=== PATIENT | male | born 1940 ===

== ENCOUNTER 2017-01-01 09:57 | Inpatient (IN) | payer MEDICARE, OTHER ==
[2017-01-01] MEDS ORDERED: Iohexol 240 (50 ml) PO ONE ×2 (11:14→11:34)
[2017-01-01 11:56] LABS: BASO % 0.2 % (0.0-2.0); HEMATOCRIT 34.1 % (35.0-51.0); LYMPH % 8.8 % (20.0-40.0); MEAN CELL VOLUME 85.4 fl (80.0-94.0); MEAN CORPUSCULAR HEMOGLOBIN 28.1 pg (27.0-31.0); MEAN CORPUSCULAR HGB CONC 32.9 g/dL (33.0-37.0); MEAN PLATELET VOLUME 10.9 fl (7.2-11.7); MONO # 0.4 K/uL (0.0-0.8); MONO % 3.6 % (0.0-10.0); NEUT # 10.1 K/uL (1.8-7.0); NEUT % 87.4 % (50.0-75.0); NRBC % 0.1 % (0.0-0.0); PLATELET COUNT 162 K/uL (130-400); WHITE BLOOD COUNT 11.6 K/uL (4.8-10.8)
[2017-01-01] MEDS ORDERED: Iohexol 240 (50 ml) ONE (12:01)
[2017-01-01 12:10] LABS: CHLORIDE 101 mmol/L (98-107)
[2017-01-01 12:11] LABS: POTASSIUM 3.9 MMOL/L (3.6-5.0); SODIUM 138 mmol/l (132-148)
[2017-01-01 12:13] LABS: ALB/GLOB RATIO 1.2 (1.0-2.1); ALKALINE PHOSPHATASE 48 U/L (38-126); ALT/SGPT 16 U/L (21-72); AST/SGOT 22 U/L (17-59); BILIRUBIN,TOTAL 0.9 mg/dl (0.2-1.3); BLOOD UREA NITROGEN 27 mg/dl (9-20); CARBON DIOXIDE 24 mmol/L (22-30); GFR AFRICAN-AMERICAN > 60
[2017-01-01 12:14] LABS: CALCIUM 9.3 mg/dL (8.4-10.2); GLUCOSE,RANDOM 141 mg/dL (75-110)
[2017-01-01 12:28] LABS: NEUTROPHIL 79 % (42-75); TOTAL CELLS COUNTED 100
[2017-01-01 12:30] LABS: LARGE PLATELETS PRESENT
[2017-01-01] MEDS ORDERED: Iohexol 300 100 ML IJ ONE (15:05)
[2017-01-01] MEDS ORDERED: Sodium Chloride 0.9% 50 ML IV ONE (15:05)
--- NOTE | 2017-01-01 15:11 | ED PDOC ---
HPI: Abdomen Time Seen by Provider: 01/01/17 10:20 Chief Complaint (Nursing): Abdominal Pain Chief Complaint (Provider): Abdominal Pain History Per: Patient History/Exam Limitations: no limitations Onset/Duration Of Symptoms: Days (since yesterday) Outside of [place] travel?: No Current Symptoms Are (Timing): Still Present Severity: Moderate Location Of Pain/Discomfort: LUQ, LLQ Quality Of Discomfort: Other (w/radiation to back, right underneath scar of recent colon anastomosis) Additional Complaint(s): Milind Salinas is a 76 year old male, with a past medical history inclusive of HTN, hyperlipidemia and type II diabetes, who presents to the ED on 01/01/17 for the evaluation of a moderate amount of left-sided abdominal pain that he has experienced since yesterday. Pain, primarily localized underneath the scar of a recent colon anastomosis (September 2016, performed for removal of mass), is further described as radiating into his back and is similar to a painful episode that he experienced 1 month ago for which he had been evaluated in the ED and was later admitted secondary to a bowel perforation at the anastomosis site. Patient reports having undergone an outpatient CT yesterday, but is unsure as to where it was done or of the results of the study. PMD: Shashi Thurston Past Medical History Reviewed: Historical Data, Nursing Documentation, Vital Signs Vital Signs: Last Vital Signs Temp 99.8 F H 01/01/17 18:10 Pulse 79 01/01/17 18:10 Resp 18 01/01/17 18:10 BP 143/59 L 01/01/17 18:10 Pulse Ox 100 01/01/17 18:08 - Medical History PMH: Asthma, Diabetes (type II), HTN, Hyperlipidemia, Pneumonia Denies: HIV, Chronic Kidney Disease - Surgical History Other surgeries: colon anastomosis (Sep 2016, for removal of mass), repair of perforated bowel - Family History Family History: States: Unknown Family Hx - Social History Current smoker - smoking cessation education provided: No Alcohol: None Drugs: Denies - Immunization History Hx Tetanus Toxoid Vaccination: No Hx Influenza Vaccination: No Hx Pneumococcal Vaccination: No - Home Medications Home Medications: Ambulatory Orders Medication Instructions Recorded Aspirin [Ecotrin] 81 mg PO DAILY 11/27/16 Insulin Glargine, Recombina 40 unit SC BID 11/27/16 [Lantus] Losartan/Hydrochlorothiazide 1 tab PO DAILY 11/27/16 [Losartan-Hctz 50-12.5 mg Tab] MetFORMIN [glucoPHAGE] 1,000 mg PO BID 11/27/16 Metoprolol Tartrate [Lopressor] 100 mg PO DAILY 11/27/16 amLODIPine [Norvasc] 5 mg PO DAILY 11/27/16 hydrALAZINE [Apresoline] 25 mg PO Q8H 11/27/16 GlipiZIDE [Glucotrol] 10 mg PO BID 01/01/17 - Allergies Allergies/Adverse Reactions: Allergies Allergy/AdvReac Type Severity Reaction Status Date / Time No Known Allergies Allergy Verified 01/01/17 10:12 Review of Systems ROS Statement: Except As Marked, All Systems Reviewed And Found Negative Gastrointestinal: Positive for: Abdominal Pain (left-sided w/radiation into back , primarily localized under scar from recent colon anastomosis) Physical Exam - Reviewed Nursing Documentation Reviewed: Yes Vital Signs Reviewed: Yes - Physical Exam Appears: Positive for: Non-toxic, No Acute Distress Head Exam: Positive for: ATRAUMATIC, NORMOCEPHALIC Skin: Positive for: Normal Color, Warm, Dry Cardiovascular/Chest: Positive for: Regular Rate, Rhythm. Negative for: Murmur Respiratory: Positive for: Normal Breath Sounds. Negative for: Respiratory Distress Gastrointestinal/Abdominal: Positive for: Soft, Tenderness (diffuse), Guarding ( left-sided), Rebound (left-sided) Back: Positive for: Normal Inspection. Negative for: Vertebral Tenderness Neurologic/Psych: Positive for: Alert, Oriented - Laboratory Results Result Diagrams: 01/01/17 11:49 01/01/17 11:49 - ECG O2 Sat by Pulse Oximetry: 100 (RA) Pulse Ox Interpretation: Normal - CT Scan/US CT A/P w/PO and IV contrast Other Rad Studies (CT/US): Read By Radiologist, Radiology Report Reviewed Other Rad Interpretation: see MDM Medical Decision Making Medical Decision Makin:20 Initial Impression: abdominal pain Discussed case with Dr. Thurston, who has requested that a repeat CT A/P be done. Initial Plan: * CT A/P w/PO and IV contrast * Labs * Lactic Acid, Plasma * Troponin I * Morphine 2mg IVP * Reevaluation 15:50 CT A/P report reviewed: FINDINGS: LOWER THORAX: There is worsening bibasilar subsegmental atelectasis. There is also confluent airspace disease in the lateral segment of the left lung base. LIVER: The liver is normal in size and there is diffuse low-attenuation. GALLBLADDER AND BILE DUCTS: There are no calcified gallstones. There is layering sludge within the gallbladder. PANCREAS: The pancreas is normal in size and there is homogeneous enhancement without focal mass. SPLEEN: The spleen is normal. ADRENALS: Both adrenal glands are normal in size without discrete nodule. KIDNEYS AND URETERS: Both kidneys are normal in size and there is homogeneous enhancement without focal mass or hydronephrosis. VASCULATURE: There is normal appearance of the vasculature. There is no abdominal aortic aneurysm. BOWEL: There is mild dilatation of the small bowel loops. Since the prior examination, there is interval development of PE multilocular fluid collection in the right lower quadrant lateral to the cecum, the anterior component measures 4.0 x 1.3 cm and contains locules of air. A posterior component adjusting to the lateral wall of the cecum measures 2.5 x 2.2 cm. There is significant stranding of the lower quadrant Ms anteriorly and reactive thickening of the terminal ileum with segmental narrowing. There is also interval development of fluid intramuscular fluid in the right lateral wall muscles. The previously seen locular fluid collection in the region of the anastomotic suture has nearly completely resolved with improving inflammatory changes at the anastomotic site. There is sigmoid diverticulosis without CT evidence for acute diverticulitis. APPENDIX: Normal appendix. PERITONEUM: Open No free fluid. No free air. LYMPH NODES: No enlarged lymph nodes. BLADDER: Normal in appearance. REPRODUCTIVE: Unremarkable. BONES: No acute fracture. OTHER FINDINGS: None. IMPRESSION: 1. Findings are concerning for interval development of multilocular abscess in the right lower quadrant lateral to the cecum. The anterior component abuts the anterior lateral abdominal wall. Significant inflammatory changes in the right lower quadrant mesentery. Also noted is intramuscular fluid in the elyssa lateral wall muscles, which may represent reactive edema however the sterility of this fluid cannot be determined on the basis of imaging. Clinical and laboratory correlation is advised. 2. Reactive segmental narrowing and thickening of the terminal ileum in the right lower quadrant and mild dilatation of proximal small bowel which could be related to ileus. No definite evidence of bowel obstruction. 3. Interval near complete resolution of previously seen fluid collection with locking is of air at the anastomotic site and interval improvement in inflammatory changes in the region of the anastomosis. Discussed admission, ID consult and surgery consult with Dr. Thurston. Scribe Attestation: Documented by Yvonne Woodward, acting as a scribe for Abbey Oakley PA-C. Provider Scribe Attestation: All medical record entries made by the Scribe were at my direction and personally dictated by me. I have reviewed the chart and agree that the record accurately reflects my personal performance of the history, physical exam, medical decision making, and the department course for this patient. I have also personally directed, reviewed, and agree with the discharge instructions and disposition. Disposition - Clinical Impression Clinical Impression: Abdominal abscess - Patient ED Disposition Is Patient to be Admitted: Yes - Disposition Disposition Time: 18:20 Condition: GOOD - Pt Status Changed To: Hospital Disposition Of: Inpatient - Admit Certification Admit to Inpatient:: After my assessment, the patient will require hospitalization for at least two midnights. This is because of the severity of symptoms shown, intensity of services needed, and/or the medical risk in this patient being treated as an outpatient. - POA Present On Arrival: None
--- NOTE | 2017-01-01 15:51 | CT ---
PROCEDURE: CT Abdomen and Pelvis with contrast HISTORY: Abdominal pain, hx recent perforation COMPARISON: None. TECHNIQUE: CT scan of the abdomen and pelvis was performed after intravenous) administration of contrast. Oral contrast was administered. Coronal and sagittal reformatted images were obtained. Contrast dose: 95 mL Omnipaque 300 Radiation dose: Total exam DLP = 1014.75 mGy-cm. This CT exam was performed using one or more of the following dose reduction techniques: Automated exposure control, adjustment of the mA and/or kV according to patient size, and/or use of iterative reconstruction technique. FINDINGS: LOWER THORAX: There is worsening bibasilar subsegmental atelectasis. There is also confluent airspace disease in the lateral segment of the left lung base. LIVER: The liver is normal in size and there is diffuse low-attenuation. GALLBLADDER AND BILE DUCTS: There are no calcified gallstones. There is layering sludge within the gallbladder. PANCREAS: The pancreas is normal in size and there is homogeneous enhancement without focal mass. SPLEEN: The spleen is normal. ADRENALS: Both adrenal glands are normal in size without discrete nodule. KIDNEYS AND URETERS: Both kidneys are normal in size and there is homogeneous enhancement without focal mass or hydronephrosis. VASCULATURE: There is normal appearance of the vasculature. There is no abdominal aortic aneurysm. BOWEL: There is mild dilatation of the small bowel loops. Since the prior examination, there is interval development of PE multilocular fluid collection in the right lower quadrant lateral to the cecum, the anterior component measures 4.0 x 1.3 cm and contains locules of air. A posterior component adjusting to the lateral wall of the cecum measures 2.5 x 2.2 cm. There is significant stranding of the lower quadrant Ms anteriorly and reactive thickening of the terminal ileum with segmental narrowing. There is also interval development of fluid intramuscular fluid in the right lateral wall muscles. The previously seen locular fluid collection in the region of the anastomotic suture has nearly completely resolved with improving inflammatory changes at the anastomotic site. There is sigmoid diverticulosis without CT evidence for acute diverticulitis. APPENDIX: Normal appendix. PERITONEUM: Open No free fluid. No free air. LYMPH NODES: No enlarged lymph nodes. BLADDER: Normal in appearance. REPRODUCTIVE: Unremarkable. BONES: No acute fracture. OTHER FINDINGS: None. IMPRESSION: 1. Findings are concerning for interval development of multilocular abscess in the right lower quadrant lateral to the cecum. The anterior component abuts the anterior lateral abdominal wall. Significant inflammatory changes in the right lower quadrant mesentery. Also noted is intramuscular fluid in the elyssa lateral wall muscles, which may represent reactive edema however the sterility of this fluid cannot be determined on the basis of imaging. Clinical and laboratory correlation is advised. 2. Reactive segmental narrowing and thickening of the terminal ileum in the right lower quadrant and mild dilatation of proximal small bowel which could be related to ileus. No definite evidence of bowel obstruction. 3. Interval near complete resolution of previously seen fluid collection with locking is of air at the anastomotic site and interval improvement in inflammatory changes in the region of the anastomosis.
[2017-01-01] MEDS ORDERED: metroNIDAZOLE 500mg/100ml NS 100 ML IVPB ONE (16:28)
[2017-01-01] MEDS ORDERED: Piperacillin/Tazobact 3.375 GM in Sodium Chloride 0.9% 100 ML IVPB ONE (16:28)
[2017-01-01] MEDS ORDERED: Piperacillin/Tazobact 3.375 gm Inj IVPB ONE (17:03)
--- NOTE | 2017-01-01 20:35 | CP.PCM.CON ---
History of Present Illness - History of Present Illness History of Present Illness: Surgery Consult: Dr. Rocha Pt is a 76M well known to our service from previous admissions, who presented to [facility] with complaints of RLQ abdominal pain that started yesterday. Pt states he had a similar episode last month and was admitted to the hospital for a week. According to the pt, pain started yesterday morning and progressively worsened throughout the day. Pt states pain is dull and located in the RLQ with some radiation to the flank. He denies any other associated symptoms such as N/V , F/C, or diarrhea. He states his last BM was yesterday afternoon and it was normal. In the ER, pt had a CT abdomen pelvis which shows imultilocular abscess in the RLQ lateral to the cecum. Anterior component measures 1.3 x 4.0cm and the posterior component measures 2.5 x 2.2cm. Currently, pt is resting comfortably in bed. He states his pain is slightly better compared to arrival. Denies any other complaints at this time. PMHx: DM, HTN, HLD, GI bleed PSHx: Lap hand assisted ileocecectomy with primary anastomosis (10/09/16), I&D of surgical wound infection (10/19/16) SocialHx: denies smoking, EtOH/drugs NKDA Review of Systems - Review of Systems All systems: reviewed and no additional remarkable complaints except (as per HPI ) Past Patient History - Infectious Disease Hx of Infectious Diseases: None - Past Medical History & Family History Past Medical History?: Yes - Past Social History Alcohol: None Drugs: Denies - CARDIAC Hx Hypertension: Yes - PULMONARY Hx Asthma: Yes Hx Pneumonia: Yes - NEUROLOGICAL Hx Neurological Disorder: No - HEENT Hx HEENT Problems: No - RENAL Hx Chronic Kidney Disease: No - ENDOCRINE/METABOLIC Hx Endocrine Disorders: Yes Hx Diabetes Mellitus Type 2: Yes - HEMATOLOGICAL/ONCOLOGICAL Hx Human Immunodeficiency Virus (HIV): No - INTEGUMENTARY Hx Dermatological Problems: No - MUSCULOSKELETAL/RHEUMATOLOGICAL Hx Musculoskeletal Disorders: No Hx Falls: No - GASTROINTESTINAL Hx Gastrointestinal Disorders: Yes Hx Bowel Surgery: Yes - GENITOURINARY/GYNECOLOGICAL Hx Genitourinary Disorders: No - PSYCHIATRIC Hx Psychophysiologic Disorder: No Hx Substance Use: No - SURGICAL HISTORY Hx Surgeries: Yes Other/Comment: Bowel Resection- 09/2016 - ANESTHESIA Hx Anesthesia: Yes Hx Anesthesia Reactions: No Hx Malignant Hyperthermia: No Meds Allergies/Adverse Reactions: Allergies Allergy/AdvReac Type Severity Reaction Status Date / Time No Known Allergies Allergy Verified 01/01/17 10:12 - Medications Medications: Current Medications Piperacillin Sod/Tazobactam (Sod 3.375 gm/ Sodium Chloride) 100 mls @ 100 mls/ hr IVPB Q6H [facility] Ketorolac Tromethamine (Toradol) 30 mg IVP Q6 PAZ Stop: 01/02/17 22:00 Ondansetron HCl (Zofran Inj) 4 mg IVP Q4 PRN PRN Reason: Nausea/Vomiting Physical Exam - Constitutional Appears: Well, No Acute Distress - Head Exam Head Exam: ATRAUMATIC, NORMOCEPHALIC - Eye Exam Eye Exam: Normal appearance - ENT Exam ENT Exam: Mucous Membranes Moist - Respiratory Exam Respiratory Exam: NORMAL BREATHING PATTERN - Cardiovascular Exam Cardiovascular Exam: RRR - GI/Abdominal Exam GI & Abdominal Exam: Guarding, Soft, Tenderness (generalized to light palpation ). absent: Distended - Rectal Exam Rectal Exam: Deferred - Extremities Exam Extremities exam: Negative for: tenderness - Neurological Exam Neurological exam: Alert, Oriented x3 - Skin Skin Exam: Dry, Intact, Warm Results - Vital Signs Recent Vital Signs: Last Vital Signs Temp 99.3 F 01/01/17 19:22 Pulse 75 01/01/17 19:22 Resp 20 01/01/17 19:22 BP 163/72 H 01/01/17 19:22 Pulse Ox 94 L 01/01/17 19:22 - Labs Result Diagrams: 01/01/17 11:49 01/01/17 11:49 - Imaging and Cardiology CT scan - abdomen Status: Image reviewed by me, Report reviewed by me Assessment & Plan - Assessment and Plan (Free Text) Assessment: 76M s/p lap hand assisted ileocecectomy with primary anastomosis in Sep 2016, who presents with recurrent intra-abdominal abscess Plan: - Keep NPO - IVF, IV ABX - Serial abdominal exams - AM labs - DVT/GI PPX - d/w Dr. Josefina German, PGY-2 Surgery
[2017-01-01] MEDS: Sodium Chloride 0.9% 1,000 ML IV SCH (21:30)
[2017-01-01] MEDS: Piperacillin/Tazobact 3.375 GM in Sodium Chloride 0.9% 100 ML IVPB SCH (21:31)
--- NOTE | 2017-01-01 21:52 | HP ---
This is a 76-years with multiple medical problems, was evaluated in the Emergency Room on the day for admission for 2 days' history of progressive right -sided abdominal pain. The patient had a laparotomy with excision of extramural mass at the ileocecal junction that was not malignant. The patient was readmitted for possible an anastomotic site perforations about 3 weeks ago, and was treated conservatively with IV antibiotics. The patient presented today, on the day of admission, with progressive pain, right upper and lower abdominal pains, at the right lower quadrant. The patient had a CAT scan of the abdomen and pelvis that showed possible abscess with interval improvement of the inflammatory changes at the site of anastomosis. The patient started on IV antibiotics, and surgical and ID consults are requested while the patient was in Emergency Room. The patient denied to have any fever or chills. Denied to have any nausea, vomiting, or diarrhea, and other review of systems is negative. ALLERGY: No known allergy. HOME MEDICATIONS: Include Lantus 50 units twice a day, amlodipine 5 mg daily, metoprolol 100 mg daily, metformin 1000 mg twice a day, losartan/ hydrochlorothiazide 50/12.5 once a day, glipizide 10 mg twice a day, aspirin 81 mg daily. SOCIAL HISTORY: No history of smoking, ETOH, or substance abuse. FAMILY HISTORY: Noncontributory. Blood pressure 163/72, temperature 99.3, respiratory rate 20, oxygen saturation 75. HENT: Pupils react to light. Normal-appearing mucosa of the conjunctivae, oropharyngeal, and nasal membrane mucosa. NECK: Supple. No JVD, no carotid bruit, no lymph node, no thyromegaly. CHEST AND LUNGS: Bilateral symmetrical expansion. Good air exchange. No rales , no rhonchi. CARDIOVASCULAR SYSTEM: PMI not localized. S1, S2. No additional sounds. ABDOMEN: Normoactive bowel sounds. Tenderness of the right upper and lower quadrant with some rebound tenderness, but no rigidity. EXTREMITIES: No cyanosis, no clubbing, no edema. CENTRAL NERVOUS SYSTEM: Alert, awake, oriented x 3, and no neurologic deficits could be appreciated. ASSESSMENT: 1. Possible intra-abdominal abscess. 2. Type 2 diabetes mellitus. 3. Hypertension. PLAN: Will keep patient n.p.o., continue IV antibiotics, serial abdominal exam , and follow up surgical and ID recommendations. Follow up surgical recommendation. [facility] S Bertrand VAZQUEZ cc: [phone] TT: 01/01/2017 21:52:22 [facility] # [id number] jn MTDD
[2017-01-02] MEDS: Piperacillin/Tazobact 3.375 GM in Sodium Chloride 0.9% 100 ML IVPB SCH ×2 (03:24→09:36)
[2017-01-02 07:20] LABS: HEMATOCRIT 27.7 % (35.0-51.0); MEAN CELL VOLUME 86.2 fl (80.0-94.0); MEAN CORPUSCULAR HEMOGLOBIN 28.5 pg (27.0-31.0); WHITE BLOOD COUNT 8.6 K/uL (4.8-10.8)
[2017-01-02 07:28] LABS: CALCIUM 8.4 mg/dL (8.4-10.2); POTASSIUM 3.7 MMOL/L (3.6-5.0)
--- NOTE | 2017-01-02 07:46 | CP.PCM.PN ---
Subjective - Date & Time of Evaluation Date of Evaluation: 01/02/17 Time of Evaluation: 06:45 - Subjective Subjective: General Surgery Pt S&E, NAEO. Afebrile. Pain has improved slightly in RLQ and R flank. No other C/O. Objective - Vital Signs/Intake and Output Vital Signs (last 24 hours): Temp Pulse Resp BP Pulse Ox 98.6 F 64 18 143/66 96 01/02/17 05:04 01/02/17 05:04 01/02/17 05:04 01/02/17 05:04 01/02/17 05:04 Intake and Output: 01/02/17 01/02/17 06:59 18:59 Intake Total 450 Balance 450 - Medications Medications: Current Medications Amlodipine Besylate (Norvasc) 5 mg PO DAILY [facility] Hydralazine HCl (Apresoline) 25 mg IV Q8 [facility] Piperacillin Sod/Tazobactam (Sod 3.375 gm/ Sodium Chloride) 100 mls @ 100 mls/ hr IVPB Q6H [facility] Last Admin: 01/02/17 03:24 Dose: 100 mls/hr Sodium Chloride (Sodium Chloride 0.9%) 1,000 mls @ 100 mls/hr IV .Q10H [facility] Stop: 01/02/17 21:01 Last Admin: 01/01/17 21:30 Dose: 100 mls/hr Potassium Chloride/Dextrose/Sod Cl (Potassium Chl 20 Meq In D5-Ns) 1,000 mls @ 100 mls/hr IV .Q10H [facility] Stop: 01/03/17 07:01 Ketorolac Tromethamine (Toradol) 30 mg IVP Q6 [facility] Stop: 01/02/17 22:00 Last Admin: 01/02/17 03:23 Dose: 30 mg Metoprolol Tartrate (Lopressor) 100 mg PO DAILY [facility] Ondansetron HCl (Zofran Inj) 4 mg IVP Q4 PRN PRN Reason: Nausea/Vomiting - Labs Labs: 01/02/17 06:20 01/02/17 06:20 - Constitutional Appears: Non-toxic, No Acute Distress - Head Exam Head Exam: ATRAUMATIC, NORMOCEPHALIC - Respiratory Exam Respiratory Exam: NORMAL BREATHING PATTERN. absent: Respiratory Distress - GI/Abdominal Exam GI & Abdominal Exam: Firm (in RLQ and R flank), Guarding (mild in RLQ and R flank), Soft, Tenderness (RLQ and R flank). absent: Distended, Rigid, Rebound - Neurological Exam Neurological Exam: Alert, Awake, Oriented x3 - Skin Skin Exam: Dry, Warm Assessment and Plan - Assessment and Plan (Free Text) Assessment: 76M s/p lap hand assisted ileocecectomy with primary anastomosis in Sep 2016, who presents with recurrent intra-abdominal abscess Plan: - NPO - IV ABX D/W Dr. Josefina Rodriguez PGY3
[2017-01-02] MEDS: Potassium Chl 20 mEq in D5-NS 1,000 ML IV SCH ×3 (09:30→16:57)
[2017-01-02] MEDS: Insulin NPH Human 100 Units/ml Inj SC SCH ×3 (09:32→16:52)
[2017-01-02] MEDS: Sodium Chloride 0.9% 1,000 ML IV SCH ×2 (09:34→16:57)
--- NOTE | 2017-01-02 11:14 | CP.PCM.CON ---
History of Present Illness - History of Present Illness History of Present Illness: Infectious Disease Consultation Note- asked to see this patient at the request of for intra-abd abscess. HPI- History obtained mostly from the medical chart and the patient's son who is at bedside. Pt. is a 76 year old male with pmh of DM Ii, HTN, Lap hand assisted ileocecectomy with primary anastomosis (10/09/16), I&D of surgical wound infection (10/19/16) who was admitted alst night with c/o right mid to lower abdominal pain . Pt. sattes the pain started 2 days ago and it progressively got worse. He denies any fever or chills, denies any n/v, denies any diarrhea and denies any dysurea. per pt's son pt. had similar thing a month ago and was hospitalized for 1 week and was on antibiotics. In the ER, pt had a CT abdomen pelvis which shows imultilocular abscess in the RLQ lateral to the cecum. Anterior component measures 1.3 x 4.0cm and the posterior component measures 2.5 x 2.2cm. Currently, pt is resting comfortably in bed. He states his pain is slightly better compared to yesterday. PMHx: DM, HTN, HLD, GI bleed PSHx: Lap hand assisted ileocecectomy with primary anastomosis (10/09/16), I&D of surgical wound infection (10/19/16) SocialHx: denies smoking, EtOH/drugs NKDA Review of Systems - Review of Systems Review of Systems: ROS- denies any STEWART, denies any fever or chills, denies any cough, denies any sob, denies any chest pain, + right lower and mid abdominal pain with radiation to flank, denies any diarrhea, denies any dysurea. Past Patient History - Infectious Disease Hx of Infectious Diseases: None - Past Medical History & Family History Past Medical History?: Yes - Past Social History Smoking Status: Never Smoked Home Situation {Lives}: With Family - CARDIAC Hx Hypertension: Yes - PULMONARY Hx Respiratory Disorders: Yes Hx Asthma: Yes Hx Pneumonia: Yes - NEUROLOGICAL Hx Neurological Disorder: No - HEENT Hx HEENT Problems: No - RENAL Hx Chronic Kidney Disease: No - ENDOCRINE/METABOLIC Hx Endocrine Disorders: Yes Hx Diabetes Mellitus Type 2: Yes - HEMATOLOGICAL/ONCOLOGICAL Hx Blood Disorders: No - MUSCULOSKELETAL/RHEUMATOLOGICAL Hx Musculoskeletal Disorders: No Hx Falls: No - GASTROINTESTINAL Hx Gastrointestinal Disorders: Yes Hx Bowel Surgery: Yes - GENITOURINARY/GYNECOLOGICAL Hx Genitourinary Disorders: No - PSYCHIATRIC Hx Psychophysiologic Disorder: No Hx Substance Use: No - SURGICAL HISTORY Hx Surgeries: Yes Other/Comment: Bowel Resection- 09/2016 - ANESTHESIA Hx Anesthesia: Yes Hx Anesthesia Reactions: No Hx Malignant Hyperthermia: No Meds Allergies/Adverse Reactions: Allergies Allergy/AdvReac Type Severity Reaction Status Date / Time No Known Allergies Allergy Verified 01/01/17 10:12 - Medications Medications: Current Medications Amlodipine Besylate (Norvasc) 5 mg PO DAILY [facility] Last Admin: 01/02/17 09:29 Dose: 5 mg Hydralazine HCl (Apresoline) 25 mg IV Q8 [facility] Last Admin: 01/02/17 09:39 Dose: 25 mg Piperacillin Sod/Tazobactam (Sod 3.375 gm/ Sodium Chloride) 100 mls @ 100 mls/ hr IVPB Q6H [facility] Last Admin: 01/02/17 09:36 Dose: 100 mls/hr Sodium Chloride (Sodium Chloride 0.9%) 1,000 mls @ 100 mls/hr IV .Q10H [facility] Stop: 01/02/17 21:01 Last Admin: 01/02/17 09:34 Dose: Not Given Potassium Chloride/Dextrose/Sod Cl (Potassium Chl 20 Meq In D5-Ns) 1,000 mls @ 100 mls/hr IV .Q10H [facility] Stop: 01/03/17 07:01 Last Admin: 01/02/17 09:30 Dose: Not Given Insulin Human NPH (Humulin N) 0 units SC ACCU-CHECK [facility] PRN Reason: Protocol Last Admin: 01/02/17 09:32 Dose: 2 units Ketorolac Tromethamine (Toradol) 30 mg IVP Q6 [facility] Stop: 01/02/17 22:00 Last Admin: 01/02/17 03:23 Dose: 30 mg Metoprolol Tartrate (Lopressor) 100 mg PO DAILY [facility] Last Admin: 01/02/17 09:28 Dose: 100 mg Ondansetron HCl (Zofran Inj) 4 mg IVP Q4 PRN PRN Reason: Nausea/Vomiting Physical Exam - Constitutional Appears: Non-toxic, No Acute Distress - Head Exam Head Exam: ATRAUMATIC - Eye Exam Eye Exam: EOMI, PERRL - ENT Exam ENT Exam: Normal Oropharynx - Neck Exam Neck exam: Positive for: Full Rom - Respiratory Exam Respiratory Exam: Clear to Auscultation Bilateral, NORMAL BREATHING PATTERN - Cardiovascular Exam Cardiovascular Exam: RRR, +S1, +S2 - GI/Abdominal Exam GI & Abdominal Exam: Normal Bowel Sounds, Soft Additional comments: slightly distended + tenderness to palpation in right mid to lower abdominal regionand right flank region with minimal guarding, No rebound - Extremities Exam Additional comments: no edema in B/L LE Results - Vital Signs Recent Vital Signs: Last Vital Signs Temp 97.8 F 01/02/17 08:36 Pulse 67 01/02/17 09:39 Resp 20 01/02/17 08:36 BP 146/63 01/02/17 09:39 Pulse Ox 97 01/02/17 08:36 - Labs Result Diagrams: 01/02/17 06:20 01/02/17 06:20 Labs: Laboratory Results - last 24 hr 01/02/17 01/02/17 05:34 06:20 WBC 8.6 RBC 3.22 L Hgb 9.2 L D Hct 27.7 L MCV 86.2 MCH 28.5 MCHC 33.0 RDW 15.0 H Plt Count 134 Sodium 140 Potassium 3.7 Chloride 101 Carbon Dioxide 26 Anion Gap 17 BUN 27 H Creatinine 1.5 Est GFR ( Amer) 55 Est GFR (Non-Af Amer) 46 POC Glucose (mg/dL) 161 H Random Glucose 142 H Calcium 8.4 Laboratory Results - last 72 hr 01/01/17 01/01/17 01/02/17 11:49 12:34 05:34 WBC 11.6 H D RBC 3.99 L Hgb 11.2 L Hct 34.1 L MCV 85.4 D MCH 28.1 MCHC 32.9 L RDW 16.0 H Plt Count 162 MPV 10.9 Neut % (Auto) 87.4 H Lymph % (Auto) 8.8 L [place] % (Auto) 3.6 Eos % (Auto) 0.0 Baso % (Auto) 0.2 Neut # 10.1 H Lymph # 1.0 [place] # 0.4 Eos # 0.0 Baso # 0.0 Neutrophils % (Manual) 79 H Band Neutrophils % 4 H Lymphocytes % (Manual) 15 L Monocytes % (Manual) 2 Platelet Estimate Normal Large Platelets Present Poikilocytosis (manual Slight Anisocytosis (manual) Slight Ovalocytes Slight Sodium 138 Potassium 3.9 Chloride 101 Carbon Dioxide 24 Anion Gap 17 BUN 27 H Creatinine 1.1 Est GFR ( Amer) > 60 Est GFR (Non-Af Amer) > 60 POC Glucose (mg/dL) 161 H Random Glucose 141 H Lactic Acid 1.1 Calcium 9.3 Total Bilirubin 0.9 AST 22 ALT 16 L D Alkaline Phosphatase 48 Troponin I < 0.0120 Total Protein 8.0 Albumin 4.4 Globulin 3.5 Albumin/Globulin Ratio 1.2 01/02/17 01/02/17 06:20 11:19 WBC 8.6 RBC 3.22 L Hgb 9.2 L D Hct 27.7 L MCV 86.2 MCH 28.5 MCHC 33.0 RDW 15.0 H Plt Count 134 MPV Neut % (Auto) Lymph % (Auto) [place] % (Auto) Eos % (Auto) Baso % (Auto) Neut # Lymph # [place] # Eos # Baso # Neutrophils % (Manual) Band Neutrophils % Lymphocytes % (Manual) Monocytes % (Manual) Platelet Estimate Large Platelets Poikilocytosis (manual Anisocytosis (manual) Ovalocytes Sodium 140 Potassium 3.7 Chloride 101 Carbon Dioxide 26 Anion Gap 17 BUN 27 H Creatinine 1.5 Est GFR ( Amer) 55 Est GFR (Non-Af Amer) 46 POC Glucose (mg/dL) 168 H Random Glucose 142 H Lactic Acid Calcium 8.4 Total Bilirubin AST ALT Alkaline Phosphatase Troponin I Total Protein Albumin Globulin Albumin/Globulin Ratio Microbiology 11/27/16 17:19 Blood-Venous Blood Culture - Final 11/27/16 17:19 Blood-Venous Gram Stain - Final NO GROWTH AFTER 5 DAYS TEST NOT PERFORMED 11/27/16 11:20 Blood-Venous Blood Culture - Final 11/27/16 11:20 Blood-Venous Gram Stain - Final NO GROWTH AFTER 5 DAYS TEST NOT PERFORMED 10/20/16 Unknown Abdomen Gram Stain - Final 10/20/16 Unknown Abdomen Wound Culture - Final Escherichia Coli Enterococcus Gallinarum 10/19/16 Unknown Blood Blood Culture - Final 10/19/16 Unknown Blood Gram Stain - Final NO GROWTH AFTER 5 DAYS TEST NOT PERFORMED 10/19/16 Unknown Blood Blood Culture - Final 10/19/16 Unknown Blood Gram Stain - Final NO GROWTH AFTER 5 DAYS Accession No. : [id number] Patient Name / ID : TONNY BRAND / [id number] Exam Date : 01/01/2017 15:25:35 ( Approved ) Study Comment : Sex / Age : M / 76Y Creator : Silvia Odonnell MD Dictator : Silvia Odonnell MD Electrical Logging Engineer : Mechanical Technical Service Specialist : Silvia Odonnell MD Approver2 : Report Date : 01/01/2017 15:50:25 My Comment : PROCEDURE: CT Abdomen and Pelvis with contrast HISTORY: Abdominal pain, hx recent perforation COMPARISON: None. TECHNIQUE: CT scan of the abdomen and pelvis was performed after intravenous) administration of contrast. Oral contrast was administered. Coronal and sagittal reformatted images were obtained. Contrast dose: 95 mL Omnipaque 300 Radiation dose: Total exam DLP = 1014.75 mGy-cm. This CT exam was performed using one or more of the following dose reduction techniques: Automated exposure control, adjustment of the mA and/or kV according to patient size, and/or use of iterative reconstruction technique. FINDINGS: LOWER THORAX: There is worsening bibasilar subsegmental atelectasis. There is also confluent airspace disease in the lateral segment of the left lung base. LIVER: The liver is normal in size and there is diffuse low-attenuation. GALLBLADDER AND BILE DUCTS: There are no calcified gallstones. There is layering sludge within the gallbladder. PANCREAS: The pancreas is normal in size and there is homogeneous enhancement without focal mass. SPLEEN: The spleen is normal. ADRENALS: Both adrenal glands are normal in size without discrete nodule. KIDNEYS AND URETERS: Both kidneys are normal in size and there is homogeneous enhancement without focal mass or hydronephrosis. VASCULATURE: There is normal appearance of the vasculature. There is no abdominal aortic aneurysm. BOWEL: There is mild dilatation of the small bowel loops. Since the prior examination, there is interval development of PE multilocular fluid collection in the right lower quadrant lateral to the cecum, the anterior component measures 4.0 x 1.3 cm and contains locules of air. A posterior component adjusting to the lateral wall of the cecum measures 2.5 x 2.2 cm. There is significant stranding of the lower quadrant Ms anteriorly and reactive thickening of the terminal ileum with segmental narrowing. There is also interval development of fluid intramuscular fluid in the right lateral wall muscles. The previously seen locular fluid collection in the region of the anastomotic suture has nearly completely resolved with improving inflammatory changes at the anastomotic site. There is sigmoid diverticulosis without CT evidence for acute diverticulitis. APPENDIX: Normal appendix. PERITONEUM: Open No free fluid. No free air. LYMPH NODES: No enlarged lymph nodes. BLADDER: Normal in appearance. REPRODUCTIVE: Unremarkable. BONES: No acute fracture. OTHER FINDINGS: None. IMPRESSION: 1. Findings are concerning for interval development of multilocular abscess in the right lower quadrant lateral to the cecum. The anterior component abuts the anterior lateral abdominal wall. Significant inflammatory changes in the right lower quadrant mesentery. Also noted is intramuscular fluid in the elyssa lateral wall muscles, which may represent reactive edema however the sterility of this fluid cannot be determined on the basis of imaging. Clinical and laboratory correlation is advised. 2. Reactive segmental narrowing and thickening of the terminal ileum in the right lower quadrant and mild dilatation of proximal small bowel which could be related to ileus. No definite evidence of bowel obstruction. 3. Interval near complete resolution of previously seen fluid collection with locking is of air at the anastomotic site and interval improvement in inflammatory changes in the region of the anastomosis. Assessment & Plan (1) Abdominal abscess Status: Acute (2) Anastomotic leak of intestine Status: Acute (3) Abdominal pain Status: Acute - Assessment and Plan (Free Text) Assessment: A/P- 76 y/o male with recent intestinal surgery and anastomosis presented with rlq abd pain and found to have intraabdominal abscess on CT report in the right side. afebrile minimal leukocytosis has resolved today. plan- advise to continue with zosyn thatw as started on admission. advise to d/c vanco. advise to also start pt. on flagyl for greater anaerobic coverage. monitor blood cx and wbc closely. If no improvement may need either surgical or IR drainage of the absceese. Thank you for allowing met o take part in the care of this patient. will f/u while inpatient.
[2017-01-02] MEDS: metroNIDAZOLE 500mg/100ml NS 100 ML IVPB SCH (16:55)
[2017-01-02] MEDS: Meropenem 1 GM in Sodium Chloride 0.9% 100 ML IVPB SCH (16:56)
--- NOTE | 2017-01-02 19:36 | CARD ---
APPROVED REPORT EKG Measurement Heart [id number] <Conclusion> Normal sinus rhythm Possible Left atrial enlargement Borderline ECG
[2017-01-03] MEDS: Meropenem 1 GM in Sodium Chloride 0.9% 100 ML IVPB SCH ×3 (00:21→17:39)
[2017-01-03] MEDS: Insulin NPH Human 100 Units/ml Inj SC SCH ×5 (00:25→23:09)
[2017-01-03] MEDS: metroNIDAZOLE 500mg/100ml NS 100 ML IVPB SCH ×3 (02:00→17:40)
[2017-01-03] MEDS: Potassium Chl 20 mEq in D5-NS 1,000 ML IV SCH (04:00)
[2017-01-03 07:55] LABS: HEMATOCRIT 26.1 % (35.0-51.0); MEAN CORPUSCULAR HEMOGLOBIN 28.5 pg (27.0-31.0); MEAN CORPUSCULAR HGB CONC 33.6 g/dL (33.0-37.0); RED CELL DISTRIBUTION WIDTH 14.7 % (11.5-14.5); WHITE BLOOD COUNT 6.9 K/uL (4.8-10.8)
--- NOTE | 2017-01-03 08:33 | CP.PCM.PN ---
Subjective - Date & Time of Evaluation Date of Evaluation: 01/03/17 Time of Evaluation: 07:10 - Subjective Subjective: General Surgery Dr. Rocha Pt S&E @bedside. NAEO. abd pain improving. denies F/C, N/V. tolerating diet. (+) BM/Flatus. Objective - Vital Signs/Intake and Output Vital Signs (last 24 hours): Temp Pulse Resp BP Pulse Ox 98.3 F 73 18 154/63 H 99 01/03/17 07:59 01/03/17 07:59 01/03/17 07:59 01/03/17 07:59 01/03/17 07:59 - Medications Medications: Current Medications Amlodipine Besylate (Norvasc) 5 mg PO DAILY [facility] Last Admin: 01/02/17 09:29 Dose: 5 mg Hydralazine HCl (Apresoline) 25 mg PO Q8 [facility] Last Admin: 01/03/17 00:21 Dose: 25 mg Metronidazole (Flagyl 500mg/100ml Ns) 100 mls @ 100 mls/hr IVPB Q8 [facility] Last Admin: 01/03/17 02:00 Dose: 100 mls/hr Meropenem 1 gm/ Sodium (Chloride) 100 mls @ 100 mls/hr IVPB Q8 [facility] Last Admin: 01/03/17 00:21 Dose: 100 mls/hr Insulin Human NPH (Humulin N) 0 units SC ACCU-CHECK [facility] PRN Reason: Protocol Last Admin: 01/03/17 07:28 Dose: 4 units Ketorolac Tromethamine (Toradol) 30 mg IVP Q6 PRN PRN Reason: Pain, moderate (4-7) Last Admin: 01/03/17 04:22 Dose: 30 mg Metoprolol Tartrate (Lopressor) 100 mg PO DAILY [facility] Last Admin: 01/02/17 09:28 Dose: 100 mg Ondansetron HCl (Zofran Inj) 4 mg IVP Q4 PRN PRN Reason: Nausea/Vomiting - Labs Labs: 01/03/17 06:30 AM CMP pending - Constitutional Appears: Non-toxic, No Acute Distress - Head Exam Head Exam: NORMAL INSPECTION - Eye Exam Eye Exam: Normal appearance - ENT Exam ENT Exam: Mucous Membranes Moist - Respiratory Exam Respiratory Exam: NORMAL BREATHING PATTERN. absent: Accessory Muscle Use, Respiratory Distress - GI/Abdominal Exam GI & Abdominal Exam: Guarding (voluntary), Soft, Tenderness (TTP R flank > L flank). absent: Distended, Rigid, Rebound - Extremities Exam Extremities Exam: Normal Inspection - Neurological Exam Neurological Exam: Alert, Awake, Oriented x3 - Psychiatric Exam Psychiatric exam: Normal Affect, Normal Mood - Skin Skin Exam: Dry, Intact, Normal Color, Warm Assessment and Plan - Assessment and Plan (Free Text) Assessment: 76 y/o M s/p lap hand-assisted ileocecectomy w/ primary anastomosis in Sep 2016 , who presents w/ recurrent intra-abdominal abscess - cont Abx per ID - recommend tighter glucose control - pain management - monitor bowel fxn Pt discussed w/ Dr. Josefina Yan PGY1
[2017-01-03 09:16] LABS: BLOOD UREA NITROGEN 20 mg/dl (9-20); CARBON DIOXIDE 25 mmol/L (22-30); CHLORIDE 107 mmol/L (98-107); GFR AFRICAN-AMERICAN > 60; GLUCOSE,RANDOM 236 mg/dL (75-110); POTASSIUM 3.9 MMOL/L (3.6-5.0); SODIUM 141 mmol/l (132-148)
[2017-01-03 12:43] VITALS: BMI 27.1
--- NOTE | 2017-01-03 17:45 | PN ---
DATE: 01/02/2017 SUBJECTIVE: The patient was seen 01/02/2017. He still has right-sided abdominal pain. The patient was seen by surgery and he is currently on IV antibiotics, day #2. PHYSICAL EXAMINATION: VITAL SIGNS: Blood pressure was 135/63, temperature 98.3, respiratory rate 20, and pulse 71. HEENT: Pupils equal, reactive to light. Normal-appearing mucosa of the conjunctivae, oropharyngeal, and nasal membrane mucosa. NECK: Supple, no lymph node. No thyromegaly. CHEST AND LUNGS: Bilateral symmetrical expansion, good air exchange, no rales, no rhonchi. CARDIOVASCULAR: PMI not localized. S1, S2. No additional sounds. ABDOMEN: Normoactive bowel sounds. There is tenderness on the right upper and lower quadrant more than the lower. No rebound tenderness or rigidity. EXTREMITIES: No cyanosis, no clubbing, no edema. CENTRAL NERVOUS SYSTEM: Alert, awake, oriented x 3. No neurological deficits could be appreciated. ASSESSMENT: 1. 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 2. Type 2 diabetes mellitus. 3. Hypertension. PLAN: Discussed the patient with Dr. Rocha and the decision was to treat the patient with IV antibiotics conservatively for now and the patient will need colonoscopy again once the symptoms are improved. Shashi Thurston MD cc: [id number] TT: 01/03/2017 17:45:20 Confirmation # [id number] Dictation # [id number] THOMAS
[2017-01-03] MEDS: Insulin Detemir 100 Units/ml Inj SC SCH (21:31)
[2017-01-04] MEDS: Meropenem 1 GM in Sodium Chloride 0.9% 100 ML IVPB SCH ×3 (00:03→17:00)
[2017-01-04] MEDS: metroNIDAZOLE 500mg/100ml NS 100 ML IVPB SCH ×3 (01:14→17:02)
[2017-01-04] MEDS: Insulin NPH Human 100 Units/ml Inj SC SCH ×4 (06:19→23:10)
[2017-01-04] MEDS: Insulin Detemir 100 Units/ml Inj SC SCH ×2 (09:00→21:55)
--- NOTE | 2017-01-04 10:00 | CP.PCM.PN ---
Subjective - Date & Time of Evaluation Date of Evaluation: 01/04/17 Time of Evaluation: 08:20 - Subjective Subjective: General Surgery Dr. Rocha Pt S&E @bedside. NAEO. c/o pain and swelling in RLQ. denies N/V, F/C. (-) BM. tolerating diet. Objective - Vital Signs/Intake and Output Vital Signs (last 24 hours): Temp Pulse Resp BP Pulse Ox 99 F 68 20 153/66 H 98 01/04/17 08:04 01/04/17 08:45 01/04/17 08:04 01/04/17 08:45 01/04/17 08:04 - Medications Medications: Current Medications Amlodipine Besylate (Norvasc) 5 mg PO DAILY [facility] Last Admin: 01/04/17 08:44 Dose: 5 mg Hydralazine HCl (Apresoline) 25 mg PO Q8 [facility] Last Admin: 01/04/17 08:45 Dose: 25 mg Metronidazole (Flagyl 500mg/100ml Ns) 100 mls @ 100 mls/hr IVPB Q8 [facility] Last Admin: 01/04/17 08:49 Dose: 100 mls/hr Meropenem 1 gm/ Sodium (Chloride) 100 mls @ 100 mls/hr IVPB Q8 [facility] Last Admin: 01/04/17 08:49 Dose: 100 mls/hr Insulin Detemir (Levemir) 30 units SC Q12 [facility] Last Admin: 01/03/17 21:31 Dose: 30 unit Insulin Human NPH (Humulin N) 0 units SC ACCU-CHECK [facility] PRN Reason: Protocol Last Admin: 01/04/17 06:19 Dose: Not Given Ketorolac Tromethamine (Toradol) 30 mg IVP Q6 PRN PRN Reason: Pain, moderate (4-7) Last Admin: 01/04/17 08:41 Dose: 30 mg Metoprolol Tartrate (Lopressor) 100 mg PO DAILY [facility] Last Admin: 01/04/17 08:45 Dose: 100 mg Ondansetron HCl (Zofran Inj) 4 mg IVP Q4 PRN PRN Reason: Nausea/Vomiting - Labs Labs: no new labs - Constitutional Appears: Non-toxic, No Acute Distress - Head Exam Head Exam: NORMAL INSPECTION - Eye Exam Eye Exam: Normal appearance - ENT Exam ENT Exam: Mucous Membranes Moist - Respiratory Exam Respiratory Exam: NORMAL BREATHING PATTERN. absent: Accessory Muscle Use, Respiratory Distress - GI/Abdominal Exam GI & Abdominal Exam: Guarding (voluntary), Soft, Tenderness (RLQ), Mass (R lower flank). absent: Distended, Firm, Rebound - Neurological Exam Neurological Exam: Alert, Awake, Oriented x3 - Psychiatric Exam Psychiatric exam: Normal Affect, Normal Mood - Skin Skin Exam: Dry, Intact, Normal Color, Warm Assessment and Plan - Assessment and Plan (Free Text) Assessment: 76 y/o M s/p lap hand-assisted ileocecectomy w/ primary anastomosis in Sep 2016 , who presents w/ recurrent intra-abdominal abscess - cont Abx per ID - maintain glucose control - cont pain management - monitor bowel fxn Pt discussed w/ Dr. Josefina Yan PGY1
--- NOTE | 2017-01-04 11:55 | CP.PCM.PN ---
Subjective - Date & Time of Evaluation Date of Evaluation: 01/04/17 Time of Evaluation: 11:55 - Subjective Subjective: ID Note- Pt. seen and examined today. Pt. is resting comfortably in bed. He denies any fever or chills. He states he feels better and his Right lower/mid abdominal /flank pain is much less. denies any n/v, denies any diarrhea. Objective - Vital Signs/Intake and Output Vital Signs (last 24 hours): Temp Pulse Resp BP Pulse Ox 99 F 68 20 153/66 H 98 01/04/17 08:04 01/04/17 08:45 01/04/17 08:04 01/04/17 08:45 01/04/17 08:04 - Medications Medications: Current Medications Amlodipine Besylate (Norvasc) 5 mg PO DAILY [facility] Last Admin: 01/04/17 08:44 Dose: 5 mg Hydralazine HCl (Apresoline) 25 mg PO Q8 [facility] Last Admin: 01/04/17 08:45 Dose: 25 mg Metronidazole (Flagyl 500mg/100ml Ns) 100 mls @ 100 mls/hr IVPB Q8 [facility] Last Admin: 01/04/17 08:49 Dose: 100 mls/hr Meropenem 1 gm/ Sodium (Chloride) 100 mls @ 100 mls/hr IVPB Q8 [facility] Last Admin: 01/04/17 08:49 Dose: 100 mls/hr Insulin Detemir (Levemir) 30 units SC Q12 [facility] Last Admin: 01/03/17 21:31 Dose: 30 unit Insulin Human NPH (Humulin N) 0 units SC ACCU-CHECK [facility] PRN Reason: Protocol Last Admin: 01/04/17 06:19 Dose: Not Given Ketorolac Tromethamine (Toradol) 30 mg IVP Q6 PRN PRN Reason: Pain, moderate (4-7) Last Admin: 01/04/17 08:41 Dose: 30 mg Metoprolol Tartrate (Lopressor) 100 mg PO DAILY [facility] Last Admin: 01/04/17 08:45 Dose: 100 mg Ondansetron HCl (Zofran Inj) 4 mg IVP Q4 PRN PRN Reason: Nausea/Vomiting - Labs Labs: - Additional Findings Additional findings: - Constitutional Appears: Non-toxic, No Acute Distress - Head Exam Head Exam: ATRAUMATIC - Eye Exam Eye Exam: EOMI, PERRL - ENT Exam ENT Exam: Normal Oropharynx - Neck Exam Neck exam: Positive for: Full Rom - Respiratory Exam Respiratory Exam: Clear to Auscultation Bilateral, NORMAL BREATHING PATTERN - Cardiovascular Exam Cardiovascular Exam: RRR, +S1, +S2 - GI/Abdominal Exam GI & Abdominal Exam: Normal Bowel Sounds, Soft Additional comments: no distention minimal tenderness to palpation in right mid to lower abdominal region and right flank region with minimal guarding, No rebound - Extremities Exam Additional comments: no edema in B/L LE Neuro- AAO x 3 Laboratory Results - last 72 hr 01/01/17 01/01/17 01/02/17 11:49 12:34 05:34 WBC RBC Hgb Hct MCV MCH MCHC RDW Plt Count Neutrophils % (Manual) 79 H Band Neutrophils % 4 H Lymphocytes % (Manual) 15 L Monocytes % (Manual) 2 Platelet Estimate Normal Large Platelets Present Poikilocytosis (manual Slight Anisocytosis (manual) Slight Ovalocytes Slight Sodium Potassium Chloride Carbon Dioxide Anion Gap BUN Creatinine Est GFR ( Amer) Est GFR (Non-Af Amer) POC Glucose (mg/dL) 161 H Random Glucose Lactic Acid 1.1 Calcium Troponin I < 0.0120 01/02/17 01/02/17 01/02/17 06:20 11:19 15:38 WBC 8.6 RBC 3.22 L Hgb 9.2 L D Hct 27.7 L MCV 86.2 MCH 28.5 MCHC 33.0 RDW 15.0 H Plt Count 134 Neutrophils % (Manual) Band Neutrophils % Lymphocytes % (Manual) Monocytes % (Manual) Platelet Estimate Large Platelets Poikilocytosis (manual Anisocytosis (manual) Ovalocytes Sodium 140 Potassium 3.7 Chloride 101 Carbon Dioxide 26 Anion Gap 17 BUN 27 H Creatinine 1.5 Est GFR ( Amer) 55 Est GFR (Non-Af Amer) 46 POC Glucose (mg/dL) 168 H 193 H Random Glucose 142 H Lactic Acid Calcium 8.4 Troponin I 01/02/17 01/03/17 01/03/17 21:55 05:13 06:30 WBC 6.9 RBC 3.07 L Hgb 8.8 L Hct 26.1 L MCV 85.0 MCH 28.5 MCHC 33.6 RDW 14.7 H Plt Count 138 Neutrophils % (Manual) Band Neutrophils % Lymphocytes % (Manual) Monocytes % (Manual) Platelet Estimate Large Platelets Poikilocytosis (manual Anisocytosis (manual) Ovalocytes Sodium Potassium Chloride Carbon Dioxide Anion Gap BUN Creatinine Est GFR ( Amer) Est GFR (Non-Af Amer) POC Glucose (mg/dL) 247 H 260 H Random Glucose Lactic Acid Calcium Troponin I 01/03/17 01/03/17 01/03/17 08:50 11:28 16:44 WBC RBC Hgb Hct MCV MCH MCHC RDW Plt Count Neutrophils % (Manual) Band Neutrophils % Lymphocytes % (Manual) Monocytes % (Manual) Platelet Estimate Large Platelets Poikilocytosis (manual Anisocytosis (manual) Ovalocytes Sodium 141 Potassium 3.9 Chloride 107 Carbon Dioxide 25 Anion Gap 13 BUN 20 Creatinine 1.1 Est GFR ( Amer) > 60 Est GFR (Non-Af Amer) > 60 POC Glucose (mg/dL) 345 H 222 H Random Glucose 236 H Lactic Acid Calcium 8.0 L Troponin I 01/03/17 01/03/17 01/04/17 17:19 21:25 06:00 WBC RBC Hgb Hct MCV MCH MCHC RDW Plt Count Neutrophils % (Manual) Band Neutrophils % Lymphocytes % (Manual) Monocytes % (Manual) Platelet Estimate Large Platelets Poikilocytosis (manual Anisocytosis (manual) Ovalocytes Sodium Potassium Chloride Carbon Dioxide Anion Gap BUN Creatinine Est GFR ( Amer) Est GFR (Non-Af Amer) POC Glucose (mg/dL) 200 H 249 H 58 L Random Glucose Lactic Acid Calcium Troponin I 01/04/17 07:40 WBC RBC Hgb Hct MCV MCH MCHC RDW Plt Count Neutrophils % (Manual) Band Neutrophils % Lymphocytes % (Manual) Monocytes % (Manual) Platelet Estimate Large Platelets Poikilocytosis (manual Anisocytosis (manual) Ovalocytes Sodium Potassium Chloride Carbon Dioxide Anion Gap BUN Creatinine Est GFR ( Amer) Est GFR (Non-Af Amer) POC Glucose (mg/dL) 104 Random Glucose Lactic Acid Calcium Troponin I Microbiology 01/01/17 16:30 Blood Blood Culture - Preliminary NO GROWTH AFTER 48 HOURS 01/01/17 16:00 Blood Blood Culture - Preliminary NO GROWTH AFTER 48 HOURS 01/02/17 17:04 Blood-Venous Blood Culture - Preliminary NO GROWTH AFTER 24 HOURS Assessment and Plan (1) Abdominal abscess Status: Acute (2) Anastomotic leak of intestine Status: Acute (3) Abdominal pain Status: Acute - Assessment and Plan (Free Text) Assessment: A/P- 76 y/o male with recent intestinal surgery and anastomosis presented with rlq abd pain and found to have intraabdominal abscess on CT report in the right side. afebrile minimal leukocytosis has resolved . blood cx- neg x 3 plan- advise to continue with IV meropenem day #3. advise to also continue with flagyl for greater anaerobic coverage. day #3. would most l;ikely need repeat abd/pelvic ct this week to see if the abscesses have resolved or decreased in size.
[2017-01-05] MEDS: Meropenem 1 GM in Sodium Chloride 0.9% 100 ML IVPB SCH ×3 (00:35→16:18)
[2017-01-05] MEDS: metroNIDAZOLE 500mg/100ml NS 100 ML IVPB SCH ×3 (02:02→16:18)
[2017-01-05] MEDS: Insulin NPH Human 100 Units/ml Inj SC SCH ×4 (06:33→23:05)
--- NOTE | 2017-01-05 07:53 | PN ---
DATE: 01/03/2017 SUBJECTIVE: This patient is seen today 01/03/2017. He is not in any cardiopulmonary distress and the patient's diet was advanced , he is complaining of right lower abdominal pain to a lesser degree. PHYSICAL EXAMINATION: VITAL SIGNS: Blood pressure 154/67, temperature 98.6, respiratory rate of 64. HEENT: Pupils equal, reactive to light. Normal appearing mucosa, no oropharyngeal and nasal membrane mucosa. NECK: Supple, no JVD, no carotid bruit, no lymph node, no thyromegaly. CHEST AND LUNGS: Bilateral symmetrical expansion, good air exchange, no rales, no rhonchi. CARDIOVASCULAR: PMI not localized. S1, S2. No additional sounds. ABDOMEN: Normoactive bowel sounds, no organomegaly, no masses. There is right lower quadrant tenderness, but there is no rebound tenderness or rigidity. EXTREMITIES: No cyanosis, no clubbing, no edema. CENTRAL NERVOUS SYSTEM: Alert, awake, oriented x 3. No neurological deficits could be appreciated. ASSESSMENT: 1. Abnormal CAT scan findings. 2. Type 2 diabetes mellitus. 3. Hypertension. PLAN: Continue current medications, we will resume patient's diabetes management and monitor the hemoglobin and hematocrit as hemoglobin dropped to 8.8 and hematocrit 26.1. Shashi Thurston MD cc: 167 TT: 01/03/2017 17:24:42 Confirmation # [id number] Dictation # [id number] jn WILLIAM
--- NOTE | 2017-01-05 07:55 | CP.PCM.PN ---
Subjective - Date & Time of Evaluation Date of Evaluation: 01/05/17 Time of Evaluation: 07:00 - Subjective Subjective: General Surgery Pt S&E, NAEO. only with minimal pain on occasion. No other complaints Objective - Vital Signs/Intake and Output Vital Signs (last 24 hours): Temp Pulse Resp BP Pulse Ox 98.1 F 70 20 164/70 H 100 01/04/17 22:00 01/05/17 00:36 01/04/17 22:00 01/05/17 00:36 01/04/17 22:00 - Medications Medications: Current Medications Amlodipine Besylate (Norvasc) 5 mg PO DAILY [facility] Last Admin: 01/04/17 08:44 Dose: 5 mg Hydralazine HCl (Apresoline) 25 mg PO Q8 [facility] Last Admin: 01/05/17 00:36 Dose: 25 mg Metronidazole (Flagyl 500mg/100ml Ns) 100 mls @ 100 mls/hr IVPB Q8 [facility] Last Admin: 01/05/17 02:02 Dose: 100 mls/hr Meropenem 1 gm/ Sodium (Chloride) 100 mls @ 100 mls/hr IVPB Q8 [facility] Last Admin: 01/05/17 00:35 Dose: 100 mls/hr Insulin Detemir (Levemir) 30 units SC Q12 [facility] Last Admin: 01/04/17 21:55 Dose: 30 unit Insulin Human NPH (Humulin N) 0 units SC ACCU-CHECK [facility] PRN Reason: Protocol Last Admin: 01/05/17 06:33 Dose: Not Given Ketorolac Tromethamine (Toradol) 30 mg IVP Q6 PRN PRN Reason: Pain, moderate (4-7) Last Admin: 01/05/17 01:11 Dose: 30 mg Metoprolol Tartrate (Lopressor) 100 mg PO DAILY [facility] Last Admin: 01/04/17 08:45 Dose: 100 mg Ondansetron HCl (Zofran Inj) 4 mg IVP Q4 PRN PRN Reason: Nausea/Vomiting - Labs Labs: 01/03/17 06:30 01/03/17 08:50 - Constitutional Appears: Non-toxic, No Acute Distress - Head Exam Head Exam: ATRAUMATIC, NORMOCEPHALIC - Eye Exam Eye Exam: EOMI. absent: Scleral icterus - Respiratory Exam Respiratory Exam: NORMAL BREATHING PATTERN. absent: Respiratory Distress - GI/Abdominal Exam GI & Abdominal Exam: Soft, Tenderness (mild in R flank). absent: Distended, Firm, Guarding, Rigid - Neurological Exam Neurological Exam: Alert, Awake, Oriented x3 - Skin Skin Exam: Dry, Warm Assessment and Plan - Assessment and Plan (Free Text) Assessment: 76M s/p lap hand-assisted ileocecectomy w/ primary anastomosis in Sep 2016, who presents w/ recurrent intra-abdominal abscess Plan: - cont Abx per ID - cont pain management D/W Dr. Josefina Rodriguez PGY3
[2017-01-05] MEDS: Insulin Detemir 100 Units/ml Inj SC SCH ×2 (08:24→21:24)
[2017-01-05] MEDS ORDERED: Sodium Chloride 0.9% 50 ML IV ONE (12:59)
[2017-01-05] MEDS ORDERED: Iohexol 300 100 ML IJ ONE (12:59)
--- NOTE | 2017-01-05 13:57 | CT ---
PROCEDURE: CT Abdomen and Pelvis with contrast HISTORY: Re-eval. fluid collections COMPARISON: 11/27/2016, 12/01/2016, 01/01/2017. TECHNIQUE: Contrast dose: 95 cc Omnipaque 300. Oral contrast was not administered. Radiation dose: Total exam DLP = 1093.40 mGy-cm. This CT exam was performed using one or more of the following dose reduction techniques: Automated exposure control, adjustment of the mA and/or kV according to patient size, and/or use of iterative reconstruction technique. FINDINGS: LOWER THORAX: Interval improvement with respect aeration of lower lobes particularly left lower lobe. LIVER: Unremarkable. No gross lesion or ductal dilatation. GALLBLADDER AND BILE DUCTS: Unremarkable. PANCREAS: Unremarkable. No gross lesion or ductal dilatation. SPLEEN: Unremarkable. ADRENALS: Unremarkable. No mass. KIDNEYS AND URETERS: Unremarkable. No hydronephrosis. No solid mass. VASCULATURE: Unremarkable. No aortic aneurysm. BOWEL: Loculated collection right lower quadrant 2.6 x 5.3 cm the interposed between adjacent small bowel in the anterior lateral abdominal wall. Please refer to coronal series 601, image 33, axial series 3 image 99 and sagittal series 602 images 30 -194. The finding is marked on the study for review. Phlegmonous changes/inflammatory findings right lower quadrant, right hemipelvis again identified although difficult to compare given the absence of intravenous contrast. There is no associated mechanical obstruction. These findings are best seen axial series 3 images 131- 149. No abnormalities at the anastomotic suture line to suggest dehiscence. APPENDIX: Not visualized. PERITONEUM: Unremarkable. No free fluid. No free air. LYMPH NODES: Unremarkable. No enlarged lymph nodes. BLADDER: Unremarkable. REPRODUCTIVE: Unremarkable. BONES: No acute fracture. OTHER FINDINGS: Focal inflammatory changes cutaneous and subcutaneous tissues right flank. These have improved somewhat compared to the prior study. IMPRESSION: Stable collection interposed between adjacent colon and the anterior lateral peritoneal reflection. Separate inflammatory changes right lower quadrant/ pelvis primarily affecting distal ileum. These are approximately stable accounting for differences in technique in the absence of oral contrast Interval improvement/aeration lower lobes.
--- NOTE | 2017-01-05 21:27 | PN ---
DATE: 01/05/2017 SUBJECTIVE: This patient is seen today 01/05/2017, he still has right-sided abdominal pain which is proving. PHYSICAL EXAMINATION: VITAL SIGNS: Blood pressure 168/64, temperature 98.4, respiratory rate 18 and pulse is 63. HEENT: Pupils equal, reactive to light. Normal-appearing mucosa of the conjunctivae, oropharyngeal and nasal membrane mucosa. NECK: Supple, no JVD, no carotid bruit, no lymph node, no thyromegaly. CHEST AND LUNGS: Bilateral symmetrical expansion, good air exchange, no rales, no rhonchi. CARDIOVASCULAR: PMI not localized. S1, S2. No additional sounds. ABDOMEN: Normoactive bowel sounds, no organomegaly, no masses. The patient has slight tenderness in the right lower quadrant. EXTREMITIES: No cyanosis, no clubbing, no edema. CENTRAL NERVOUS SYSTEM: Alert, awake, oriented x 3. No neurological deficits could be appreciated. ASSESSMENT: 1. Intra-abdominal abscess, status post excision of extramural benign tumor about 2 months ago. 2. Type 2 diabetes mellitus. 3. Hypertension. PLAN: Continue conservative treatment with IV antibiotics and follow the surgical recommendations. Shashi Thurston MD cc: 167 TT: 01/05/2017 21:26:14 Confirmation # [id number] Dictation # [id number] MTDD
[2017-01-06] MEDS: Meropenem 1 GM in Sodium Chloride 0.9% 100 ML IVPB SCH ×3 (00:40→17:24)
[2017-01-06] MEDS: metroNIDAZOLE 500mg/100ml NS 100 ML IVPB SCH ×3 (02:00→18:37)
[2017-01-06] MEDS: Insulin NPH Human 100 Units/ml Inj SC SCH ×4 (06:53→22:02)
[2017-01-06 07:38] LABS: HEMATOCRIT 30.1 % (35.0-51.0); MEAN CELL VOLUME 85.4 fl (80.0-94.0); MEAN CORPUSCULAR HEMOGLOBIN 28.1 pg (27.0-31.0); MEAN CORPUSCULAR HGB CONC 32.8 g/dL (33.0-37.0); RED CELL DISTRIBUTION WIDTH 14.9 % (11.5-14.5); WHITE BLOOD COUNT 6.5 K/uL (4.8-10.8)
[2017-01-06 07:50] LABS: BLOOD UREA NITROGEN 16 mg/dl (9-20); CALCIUM 9.2 mg/dL (8.4-10.2); CARBON DIOXIDE 27 mmol/L (22-30); CHLORIDE 106 mmol/L (98-107); GFR AFRICAN-AMERICAN > 60; GLUCOSE,RANDOM 88 mg/dL (75-110); POTASSIUM 4.2 MMOL/L (3.6-5.0); SODIUM 146 mmol/l (132-148)
--- NOTE | 2017-01-06 08:01 | CP.PCM.PN ---
Subjective - Date & Time of Evaluation Date of Evaluation: 01/06/17 Time of Evaluation: 07:58 - Subjective Subjective: General Surgery - DR. Rocha Pt S&E. [place]. Pt had CT abd/pelvis yesterday which showed persistence of the R pericolic collection. Pt complains of pain in the R mid abdomen. He denies any additional complaints. No N/V, F/C, SOB/CP. Objective - Vital Signs/Intake and Output Vital Signs (last 24 hours): Temp Pulse Resp BP Pulse Ox 98 F 76 20 170/68 H 100 01/06/17 07:55 01/06/17 07:55 01/06/17 07:55 01/06/17 07:55 01/06/17 07:55 - Medications Medications: Current Medications Amlodipine Besylate (Norvasc) 5 mg PO DAILY [facility] Last Admin: 01/05/17 08:24 Dose: 5 mg Hydralazine HCl (Apresoline) 25 mg PO Q8 [facility] Last Admin: 01/06/17 00:39 Dose: 25 mg Metronidazole (Flagyl 500mg/100ml Ns) 100 mls @ 100 mls/hr IVPB Q8 [facility] Last Admin: 01/06/17 02:00 Dose: 100 mls/hr Meropenem 1 gm/ Sodium (Chloride) 100 mls @ 100 mls/hr IVPB Q8 [facility] Last Admin: 01/06/17 00:40 Dose: 100 mls/hr Insulin Detemir (Levemir) 30 units SC Q12 [facility] Last Admin: 01/05/17 21:24 Dose: 30 unit Insulin Human NPH (Humulin N) 0 units SC ACCU-CHECK PAZ PRN Reason: Protocol Last Admin: 01/06/17 06:53 Dose: Not Given Ketorolac Tromethamine (Toradol) 30 mg IVP Q6 PRN PRN Reason: Pain, moderate (4-7) Last Admin: 01/06/17 07:32 Dose: 30 mg Metoprolol Tartrate (Lopressor) 100 mg PO DAILY [facility] Last Admin: 01/05/17 08:25 Dose: 100 mg Ondansetron HCl (Zofran Inj) 4 mg IVP Q4 PRN PRN Reason: Nausea/Vomiting - Labs Labs: 01/06/17 05:35 01/03/17 08:50 - Constitutional Appears: No Acute Distress - Head Exam Head Exam: ATRAUMATIC, NORMOCEPHALIC - Eye Exam Eye Exam: Normal appearance - Respiratory Exam Respiratory Exam: NORMAL BREATHING PATTERN. absent: Respiratory Distress - GI/Abdominal Exam GI & Abdominal Exam: Guarding, Soft, Tenderness (R mid abdomen). absent: Distended, Firm, Rebound - Neurological Exam Neurological Exam: Alert, Oriented x3 - Psychiatric Exam Psychiatric exam: Normal Affect, Normal Mood - Skin Skin Exam: Dry, Intact Assessment and Plan - Assessment and Plan (Free Text) Assessment: 76M s/p lap asst. ileocecectomy in Sep 2016, w/ recurrent intra-abdominal abscess Plan: - Cont Abx per ID - Pain control - Repeat CT with persistence of the collection, will dw IR if drainage would be possible given the size D/W Dr. Josefina Cowan PGY2
[2017-01-06] MEDS: Insulin Detemir 100 Units/ml Inj SC SCH ×2 (09:22→21:58)
--- NOTE | 2017-01-06 11:46 | CP.PCM.PN ---
Subjective - Date & Time of Evaluation Date of Evaluation: 01/06/17 Time of Evaluation: 11:46 - Subjective Subjective: ID note- Pt. seen and examined today. Pt. states he still has RUQ /flank abdominal pain but less than before. he denies any fever or chills. he states he will go for IR drainage of the intraabdominal abscess since repeat Ct still showed sizeable fluid collection. Objective - Vital Signs/Intake and Output Vital Signs (last 24 hours): Temp Pulse Resp BP Pulse Ox 98 F 76 20 170/68 H 100 01/06/17 07:55 01/06/17 09:11 01/06/17 07:55 01/06/17 09:11 01/06/17 07:55 - Medications Medications: Current Medications Amlodipine Besylate (Norvasc) 5 mg PO DAILY [facility] Last Admin: 01/06/17 09:11 Dose: 5 mg Hydralazine HCl (Apresoline) 25 mg PO Q8 [facility] Last Admin: 01/06/17 09:09 Dose: 25 mg Metronidazole (Flagyl 500mg/100ml Ns) 100 mls @ 100 mls/hr IVPB Q8 [facility] Last Admin: 01/06/17 09:11 Dose: 100 mls/hr Meropenem 1 gm/ Sodium (Chloride) 100 mls @ 100 mls/hr IVPB Q8 [facility] Last Admin: 01/06/17 10:27 Dose: 100 mls/hr Dextrose/Sodium Chloride (Dextrose 5%-0.45% Ns 500 Ml) 500 mls @ 75 mls/hr IV .Q6H40M [facility] Stop: 01/07/17 10:16 Last Admin: 01/06/17 10:27 Dose: 75 mls/hr Insulin Detemir (Levemir) 30 units SC Q12 [facility] Last Admin: 01/06/17 09:22 Dose: 30 unit Insulin Human NPH (Humulin N) 0 units SC ACCU-CHECK [facility] PRN Reason: Protocol Last Admin: 01/06/17 06:53 Dose: Not Given Ketorolac Tromethamine (Toradol) 30 mg IVP Q6 PRN PRN Reason: Pain, moderate (4-7) Last Admin: 01/06/17 07:32 Dose: 30 mg Metoprolol Tartrate (Lopressor) 100 mg PO DAILY [facility] Last Admin: 01/06/17 09:11 Dose: 100 mg Ondansetron HCl (Zofran Inj) 4 mg IVP Q4 PRN PRN Reason: Nausea/Vomiting - Labs Labs: - Additional Findings Additional findings: - Additional Findings Additional findings: - Constitutional Appears: Non-toxic, No Acute Distress - Head Exam Head Exam: ATRAUMATIC - Eye Exam Eye Exam: EOMI, PERRL - ENT Exam ENT Exam: Normal Oropharynx - Neck Exam Neck exam: Positive for: Full Rom - Respiratory Exam Respiratory Exam: Clear to Auscultation Bilateral, NORMAL BREATHING PATTERN - Cardiovascular Exam Cardiovascular Exam: RRR, +S1, +S2 - GI/Abdominal Exam GI & Abdominal Exam: Normal Bowel Sounds, Soft Additional comments: no distention minimal tenderness to palpation in right mid to lower abdominal region and right flank region with minimal guarding, No rebound - Extremities Exam Additional comments: no edema in B/L LE Neuro- AAO x 3 Laboratory Results - last 72 hr 01/03/17 01/04/17 01/04/17 21:25 06:00 07:40 WBC RBC Hgb Hct MCV MCH MCHC RDW Plt Count PT INR APTT Sodium Potassium Chloride Carbon Dioxide Anion Gap BUN Creatinine Est GFR ( Amer) Est GFR (Non-Af Amer) POC Glucose (mg/dL) 249 H 58 L 104 Random Glucose Calcium 01/04/17 01/04/17 01/04/17 11:05 15:22 21:33 WBC RBC Hgb Hct MCV MCH MCHC RDW Plt Count PT INR APTT Sodium Potassium Chloride Carbon Dioxide Anion Gap BUN Creatinine Est GFR ( Amer) Est GFR (Non-Af Amer) POC Glucose (mg/dL) 213 H 247 H 286 H Random Glucose Calcium 01/05/17 01/05/17 01/05/17 06:00 06:28 10:59 WBC RBC Hgb Hct MCV MCH MCHC RDW Plt Count PT INR APTT Sodium Potassium Chloride Carbon Dioxide Anion Gap BUN Creatinine Est GFR ( Amer) Est GFR (Non-Af Amer) POC Glucose (mg/dL) 55 L 104 212 H Random Glucose Calcium 01/05/17 01/05/17 01/06/17 15:35 21:19 05:35 WBC 6.5 RBC 3.52 L Hgb 9.9 L Hct 30.1 L MCV 85.4 MCH 28.1 MCHC 32.8 L RDW 14.9 H Plt Count 226 PT INR APTT Sodium 146 Potassium 4.2 Chloride 106 Carbon Dioxide 27 Anion Gap 17 BUN 16 Creatinine 1.0 Est GFR ( Amer) > 60 Est GFR (Non-Af Amer) > 60 POC Glucose (mg/dL) 253 H 241 H Random Glucose 88 Calcium 9.2 01/06/17 01/06/17 01/06/17 05:38 10:55 11:47 WBC RBC Hgb Hct MCV MCH MCHC RDW Plt Count PT 11.3 H INR 1.09 H APTT 27.4 Sodium Potassium Chloride Carbon Dioxide Anion Gap BUN Creatinine Est GFR ( Amer) Est GFR (Non-Af Amer) POC Glucose (mg/dL) 96 151 H Random Glucose Calcium 01/06/17 15:18 WBC RBC Hgb Hct MCV MCH MCHC RDW Plt Count PT INR APTT Sodium Potassium Chloride Carbon Dioxide Anion Gap BUN Creatinine Est GFR ( Amer) Est GFR (Non-Af Amer) POC Glucose (mg/dL) 74 Random Glucose Calcium Microbiology 01/01/17 16:30 Blood Blood Culture - Final NO GROWTH AFTER 5 DAYS 01/01/17 16:30 Blood Gram Stain - Final TEST NOT PERFORMED 01/01/17 16:00 Blood Blood Culture - Final NO GROWTH AFTER 5 DAYS 01/01/17 16:00 Blood Gram Stain - Final TEST NOT PERFORMED 01/02/17 17:04 Blood-Venous Blood Culture - Preliminary NO GROWTH AFTER 4 DAYS Assessment and Plan (1) Abdominal abscess Status: Acute (2) Anastomotic leak of intestine Status: Acute (3) Abdominal pain Status: Acute - Assessment and Plan (Free Text) Assessment: A/P- 76 y/o male with recent intestinal surgery and anastomosis presented with rlq abd pain and found to have intraabdominal abscess on CT report in the right side. afebrile minimal leukocytosis has resolved . blood cx- neg x 3 plan- advise to continue with IV meropenem day #5. advise to also continue with flagyl for greater anaerobic coverage. day #5. await IR drainage of the abscess and send fluid for gram stain and cx.
[2017-01-06 12:21] LABS: PARTIAL THROMBOPLASTIN TIME 27.4 SECONDS (23.3-32.5)
[2017-01-06] MEDS ORDERED: Lidocaine 1% Inj (20ml) ONE (13:06)
[2017-01-06] MEDS ORDERED: Sodium Chloride 0.9% 100 ML ONE (13:06)
--- NOTE | 2017-01-06 13:35 | PCM.SURG1 ---
Surgeon's Initial Post Op Note - Surgeon's Notes Surgeon: Augustine Canela MD Logistics Analytics Manager: NONE Type of Anesthesia: Local Pre-Operative Diagnosis: Right pericolonic abscess Operative Findings: US showed a small right pericolonic abscess/ Post-Operative Diagnosis: Right pericolonic abscess Operation Performed: US guided aspiration of right pericolonic abscess Specimen/Specimens Removed: 4 cc of purulent drainage, not foul smelling. Estimated Blood Loss: EBL {In ML}: 0 Blood Products Given: N/A Drains Used: No Drains Post-Op Condition: Fair Date of Surgery/Procedure: 01/06/17 Time of Surgery/Procedure: 13:25
[2017-01-06 16:12] VITALS: RESP 20
--- NOTE | 2017-01-06 22:25 | PN ---
DATE: 01/06/2017 The patient is seen today 01/06/2017. He is not in any cardiopulmonary distress. The patient still has right-sided abdominal pain. Blood pressure 172/64, temperature 99.1, respiratory rate 20, and pulse is 73. HEENT: Pupils equal, reactive to light. Normal-appearing mucosa of the conjunctivae, oropharyngeal, and nasal membrane mucosa. NECK: Supple, no JVD, no carotid bruit, no lymph node, no thyromegaly. CHEST AND LUNGS: Bilateral symmetrical expansion. Good air exchange. No rales, no rhonchi. CARDIOVASCULAR SYSTEM: PMI not localized. S1, S2. No additional sounds. ABDOMEN: Normoactive bowel sounds. There is mild tenderness in the right lower quadrant with no karen ound tenderness or rigidity. No organomegaly, no masses. EXTREMITIES: No cyanosis, no clubbing, no edema. CENTRAL NERVOUS SYSTEM: Alert, awake, oriented x 3. No neurological deficits could be appreciated. ASSESSMENT: Intra-abdominal abscess with status post excision of intra-abdominal benign tumor. PLAN: Continue current IV antibiotics. Follow up surgical recommendations. Discussed with infectio us disease senior consumer insights consultant. Shashi Thurston MD cc: 167 TT: 01/06/2017 22:25:01 Confirmation # [id number] Dictation # [id number]
[2017-01-07] MEDS: metroNIDAZOLE 500mg/100ml NS 100 ML IVPB SCH ×3 (01:00→16:26)
[2017-01-07] MEDS: Meropenem 1 GM in Sodium Chloride 0.9% 100 ML IVPB SCH ×3 (02:00→18:14)
[2017-01-07] MEDS: Insulin NPH Human 100 Units/ml Inj SC SCH (06:14)
--- NOTE | 2017-01-07 08:06 | CP.PCM.PN ---
Subjective - Date & Time of Evaluation Date of Evaluation: 01/07/17 Time of Evaluation: 07:20 - Subjective Subjective: General Surgery Pt S&E, NAEO. Feeling better today after IR drainage yesterday. No other complaints Objective - Vital Signs/Intake and Output Vital Signs (last 24 hours): Temp Pulse Resp BP Pulse Ox 98.7 F 62 20 168/71 H 98 01/07/17 07:59 01/07/17 07:59 01/07/17 07:59 01/07/17 07:59 01/07/17 07:59 - Medications Medications: Current Medications Amlodipine Besylate (Norvasc) 5 mg PO DAILY [facility] Last Admin: 01/06/17 09:11 Dose: 5 mg Hydralazine HCl (Apresoline) 25 mg PO Q8 [facility] Last Admin: 01/07/17 01:21 Dose: 25 mg Metronidazole (Flagyl 500mg/100ml Ns) 100 mls @ 100 mls/hr IVPB Q8 [facility] Last Admin: 01/07/17 01:00 Dose: 100 mls/hr Meropenem 1 gm/ Sodium (Chloride) 100 mls @ 100 mls/hr IVPB Q8 [facility] Last Admin: 01/07/17 02:00 Dose: 100 mls/hr Dextrose/Sodium Chloride (Dextrose 5%-0.45% Ns 500 Ml) 500 mls @ 75 mls/hr IV .Q6H40M [facility] Stop: 01/07/17 10:16 Last Admin: 01/07/17 00:44 Dose: Not Given Insulin Detemir (Levemir) 30 units SC Q12 [facility] Last Admin: 01/06/17 21:58 Dose: 30 unit Insulin Human NPH (Humulin N) 0 units SC ACCU-CHECK [facility] PRN Reason: Protocol Last Admin: 01/07/17 06:14 Dose: Not Given Ketorolac Tromethamine (Toradol) 30 mg IVP Q6 PRN PRN Reason: Pain, moderate (4-7) Last Admin: 01/07/17 01:12 Dose: 30 mg Metoprolol Tartrate (Lopressor) 100 mg PO DAILY [facility] Last Admin: 01/06/17 09:11 Dose: 100 mg Ondansetron HCl (Zofran Inj) 4 mg IVP Q4 PRN PRN Reason: Nausea/Vomiting - Labs Labs: 01/06/17 05:35 01/06/17 05:35 PT 11.3 SECONDS (9.6-11.2) H 01/06/17 11:47 INR 1.09 (0.92-1.08) H 01/06/17 11:47 APTT 27.4 SECONDS (23.3-32.5) 01/06/17 11:47 - Constitutional Appears: Non-toxic, No Acute Distress - Head Exam Head Exam: ATRAUMATIC, NORMOCEPHALIC - Eye Exam Eye Exam: EOMI. absent: Scleral icterus - Respiratory Exam Respiratory Exam: NORMAL BREATHING PATTERN. absent: Respiratory Distress - GI/Abdominal Exam GI & Abdominal Exam: Soft. absent: Distended, Firm, Guarding, Rigid, Tenderness Additional comments: dressing over IR puncture site on R abdomen - Neurological Exam Neurological Exam: Alert, Awake, Oriented x3 - Skin Skin Exam: Dry, Warm Assessment and Plan - Assessment and Plan (Free Text) Assessment: 76M s/p lap hand-assisted ileocecectomy w/ primary anastomosis in Sep 2016, who presents w/ recurrent intra-abdominal abscess Plan: - cont Abx per ID - Await culture and GS of aspirate - No surgical intervention at this time. D/W Dr. Josefina Rodriguez PGY3
[2017-01-07] MEDS: Insulin Detemir 100 Units/ml Inj SC SCH ×2 (09:37→21:37)
--- NOTE | 2017-01-07 12:06 | CT ---
PROCEDURE: Date of procedure: 01/06/2017 Procedure: 1. Abdominal abscess drainage with ultrasound guidance, CPT 55422 Medications: 6 cubic centimeters 2 percent lidocaine HISTORY: Pericolonic abscess TECHNIQUE: Following informed consent procedure time-out, limited ultrasound performed of the patient's right lower abdomen. A small pericolonic abscess is identified consistent with the collection seen on CT scan. Collection measures 4 centimeter x 1.5 centimeters. After the patient abdomen was prepped and draped in the usual sterile fashion, the skin was anesthetized with 1 % lidocaine. A 5 Irish Meteo Protect catheter was advanced under ultrasound guidance into the collection. 4 cubic centimeters of purulent fluid was removed and sent for culture and cytology. A dressing was applied. IMPRESSION: Ultrasound-guided aspiration of right pericolonic abscess.
[2017-01-07] MEDS: Insulin Regular 100 units/ml SC SCH ×3 (13:23→21:34)
--- NOTE | 2017-01-07 22:57 | PN ---
DATE: 01/07/2017 This patient is seen today, 01/07/2017. He is having less abdominal pain status post excision of some intra-abdominal abscess yesterday. Bp 130/75, temperature 98.2, respiratory rate 20, and pulse 61. HEENT: Pupils are equal, reactive to light. Normal-appearing mucosa of the conjunctivae, oropharyngeal, and nasal-membrane mucosa. NECK: Supple, no JVD. No carotid bruit, no lymph node. CHEST AND LUNGS: Bilateral symmetric expansion. Good air exchange. No rales, no rhonchi. CARDIOVASCULAR SYSTEM: PMI not localized. S1, S2. No additional sounds. ABDOMEN: Normoactive bowel sounds. No tenderness, no organomegaly, no masses. EXTREMITIES: No cyanosis, no clubbing, no edema. CENTRAL NERVOUS SYSTEM: Alert, awake, oriented x 2. No neurologic deficits could be appreciated. ASSESSMENT: 1. Intra-abdominal abscess, status post excision of extramural tumor. 2. Type 2 diabetes mellitus. 3. Hypertension. PLAN: We will continue current IV antibiotics, and follow ID recommendation, and surgical recommendatio. [facility] Ira Thurston MD cc: 167 TT: 01/07/2017 22:56:18 Confirmation # [id number] Dictation # [id number] MTDD
[2017-01-08] MEDS: Meropenem 1 GM in Sodium Chloride 0.9% 100 ML IVPB SCH ×2 (00:02→09:18)
[2017-01-08] MEDS: metroNIDAZOLE 500mg/100ml NS 100 ML IVPB SCH ×2 (00:03→09:12)
[2017-01-08] MEDS: Insulin Regular 100 units/ml SC SCH ×3 (07:18→16:56)
[2017-01-08] MEDS ORDERED: Pantoprazole 40 mg EC Tab PO SCH (09:00)
[2017-01-08] MEDS: Insulin Detemir 100 Units/ml Inj SC SCH (09:00)
[2017-01-08] MEDS ORDERED: Enoxaparin 40 mg Syringe SC SCH (09:00)
--- NOTE | 2017-01-08 09:50 | CP.PCM.PN ---
Subjective - Date & Time of Evaluation Date of Evaluation: 01/08/17 Time of Evaluation: 09:10 - Subjective Subjective: General Surgery Pt S&E, NAEO. Feeling better today. Reports some tenderness where IR did needle drainage. No other complaints. Objective - Vital Signs/Intake and Output Vital Signs (last 24 hours): Temp Pulse Resp BP Pulse Ox 98 F 71 20 144/74 98 01/08/17 08:16 01/08/17 09:16 01/08/17 08:16 01/08/17 09:16 01/08/17 08:16 - Medications Medications: Current Medications Amlodipine Besylate (Norvasc) 5 mg PO DAILY [facility] Last Admin: 01/08/17 09:14 Dose: 5 mg Enoxaparin Sodium (Lovenox) 40 mg SC DAILY [facility] PRN Reason: Protocol Last Admin: 01/08/17 09:33 Dose: 40 mg Hydralazine HCl (Apresoline) 25 mg PO Q8 [facility] Last Admin: 01/08/17 09:10 Dose: 25 mg Metronidazole (Flagyl 500mg/100ml Ns) 100 mls @ 100 mls/hr IVPB Q8 [facility] Last Admin: 01/08/17 09:12 Dose: 100 mls/hr Meropenem 1 gm/ Sodium (Chloride) 100 mls @ 100 mls/hr IVPB Q8 [facility] Last Admin: 01/08/17 09:18 Dose: 100 mls/hr Insulin Detemir (Levemir) 30 units SC Q12 [facility] Last Admin: 01/07/17 21:37 Dose: 30 unit Insulin Human Regular (Humulin R) 0 units SC ACHS [facility] PRN Reason: Protocol Last Admin: 01/08/17 07:18 Dose: Not Given Metoprolol Tartrate (Lopressor) 100 mg PO DAILY [facility] Last Admin: 01/08/17 09:16 Dose: 100 mg Ondansetron HCl (Zofran Inj) 4 mg IVP Q4 PRN PRN Reason: Nausea/Vomiting Pantoprazole Sodium (Protonix Ec Tab) 40 mg PO DAILY [facility] Last Admin: 01/08/17 09:29 Dose: 40 mg - Labs Labs: 01/06/17 05:35 01/06/17 05:35 PT 11.3 SECONDS (9.6-11.2) H 01/06/17 11:47 INR 1.09 (0.92-1.08) H 01/06/17 11:47 APTT 27.4 SECONDS (23.3-32.5) 01/06/17 11:47 - Constitutional Appears: Non-toxic, No Acute Distress - Head Exam Head Exam: ATRAUMATIC, NORMOCEPHALIC - Eye Exam Eye Exam: EOMI. absent: Scleral icterus - Respiratory Exam Respiratory Exam: NORMAL BREATHING PATTERN. absent: Respiratory Distress - GI/Abdominal Exam GI & Abdominal Exam: Guarding (mild), Soft, Tenderness (on deep palpation of RLQ ). absent: Distended, Firm, Rigid - Neurological Exam Neurological Exam: Alert, Awake, Oriented x3 - Skin Skin Exam: Dry, Warm Assessment and Plan - Assessment and Plan (Free Text) Assessment: 76M s/p lap hand-assisted ileocecectomy w/ primary anastomosis in Sep 2016, who presents w/ recurrent intra-abdominal abscess Plan: - cont Abx per ID - Await culture results of IR aspirate, may be negative 2/2 abx prior to drainage. - No surgical intervention at this time. D/W Dr. Josefina Rodriguez PGY3
--- NOTE | 2017-01-08 12:51 | CP.PCM.PCO ---
Assessment/Plan - Assessment/Plan Assessment (Free Text): Pt stable, denies abdominal pain, cp or sob. Seen and cleared for d/c home by Dr. Thurston. Per dr. Marcos, pt to be discharged on 14-21 days of cipro/ flagyl. Pt to f/u with PMD Dr. Thurston next week and to f/u with surgery in 1-2 weeks. Rx given
[2017-01-08 16:58] VITALS: TEMP 98.1; O2SAT 100
[2017-01-08 17:01] VITALS: BP 156/55; PULSE 60
--- NOTE | 2017-01-09 22:29 | DS ---
REASON FOR ADMISSION: This is a 76-year-old male with history of multiple medical problems, who was admitted for intra-abdominal abscess. COURSE OF HOSPITALIZATION: The patient was admitted to medical floor, and he had a surgical consulta tion done by Dr. Rocha. The patient was started on IV antibiotics that he responded well to it, and diet was resumed. The patient had an ID consult done also by Dr. Marcos. The patient was jarrett ated by surgery and ID, and was discharged for on another 7 days of p.o. antibiotics, and to follow w [facility] surgery as outpatient. FINAL DIAGNOSES: 1. 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 2. Hypertension. 3. Type 2 diabetes mellitus. Shashi Thurston MD cc: 167 TT: 01/09/2017 22:29:27 jn
== END 2017-01-08 17:21 | disposition home health service (06) | DRG 862 ==
LOC: H.ER 09:57 → H.ERHOLD 17:01 → H.TEL 18:47 → H.MEDSURG1 01-03 14:56
PROVIDERS: ADMIT Internal Medicine; ATTEND Internal Medicine
PROC: 0W9G3ZZ Drainage of Peritoneal Cavity, Percutaneous Approach (ICD-10-PCS; principal; 2017-01-06)
DX: T81.4XXA Infection following a procedure, initial encounter (principal); K65.1 Peritoneal abscess; E11.9 Type 2 diabetes mellitus without complications; K91.89 Other postprocedural complications and disorders of digestive system; Y83.8 Other surgical procedures as the cause of abnormal reaction of the patient, or of later complication, without mention of misadventure at the time of the procedure; E78.5 Hyperlipidemia, unspecified; I10 Essential (primary) hypertension; J45.909 Unspecified asthma, uncomplicated

== ENCOUNTER 2017-04-15 20:38 | Inpatient (IN) | payer MEDICARE, OTHER ==
[2017-04-15 20:38] VITALS: BMI 30.7
[2017-04-15] MEDS ORDERED: Iohexol 240 (50 ml) PO ONE (21:07)
[2017-04-15] MEDS ORDERED: Sodium Chloride 0.9% 1,000 ML IV STA (21:10)
[2017-04-15] MEDS ORDERED: Iohexol 240 (50 ml) ONE (21:12)
--- NOTE | 2017-04-15 21:13 | ED PDOC ---
HPI: Abdomen Time Seen by Provider: 04/15/17 20:56 Chief Complaint (Nursing): Abdominal Pain Additional History Per: Patient Additional Complaint(s): 76 y/o male history of diabetes, hypertension, hyperlipidemia, ileocecectomy with primary anastomosis (09/2016 due to cecal mass) presents with diffuse abdominal pain x 2 days. Associated decreased appetite. Denies headache, dizziness, nausea/vomiting, chest pain, shortness of breath, palpitations, changes in bowel movements, urinary symptoms. Last bowel movement today. Past Medical History Reviewed: Historical Data, Nursing Documentation, Vital Signs Vital Signs: Last Vital Signs Temp 97.2 F L 04/17/17 15:40 Pulse 63 04/17/17 16:20 Resp 17 04/17/17 15:40 BP 165/70 H 04/17/17 16:20 Pulse Ox 96 04/17/17 15:40 - Medical History PMH: Asthma, Colonic Polyps, Diabetes (type II), HTN, Hypercholesterolemia, Hyperlipidemia, Hypothyroidism (WAS PLACED ON MEDS PT DONT KNOW WHY), Pneumonia Denies: HIV, Chronic Kidney Disease - Surgical History Surgical History: Endoscopy - Family History Family History: States: Unknown Family Hx - Immunization History Hx Tetanus Toxoid Vaccination: No Hx Influenza Vaccination: No Hx Pneumococcal Vaccination: No - Home Medications Home Medications: Ambulatory Orders Medication Instructions Recorded Losartan/Hydrochlorothiazide 1 tab PO DAILY 11/27/16 [Losartan-Hctz 50-12.5 mg Tab] MetFORMIN [glucoPHAGE] 1,000 mg PO BID 11/27/16 Metoprolol Tartrate [Lopressor] 100 mg PO DAILY 11/27/16 amLODIPine [Norvasc] 5 mg PO DAILY 11/27/16 hydrALAZINE [Apresoline] 25 mg PO Q8H 11/27/16 GlipiZIDE [Glucotrol] 10 mg PO BID 01/01/17 Fenofibrate [Tricor] 1 tab PO DAILY 03/18/17 - Allergies Allergies/Adverse Reactions: Allergies Allergy/AdvReac Type Severity Reaction Status Date / Time No Known Allergies Allergy Verified 04/15/17 20:42 Review of Systems ROS Statement: Except As Marked, All Systems Reviewed And Found Negative Gastrointestinal: Positive for: Abdominal Pain Physical Exam - Reviewed Nursing Documentation Reviewed: Yes Vital Signs Reviewed: Yes - Physical Exam Appears: Positive for: Well, Non-toxic, Uncomfortable Head Exam: Positive for: ATRAUMATIC, NORMAL INSPECTION, NORMOCEPHALIC Skin: Positive for: Normal Color Eye Exam: Positive for: Normal appearance ENT: Positive for: Normal ENT Inspection Cardiovascular/Chest: Positive for: Regular Rate, Rhythm Respiratory: Positive for: Normal Breath Sounds Gastrointestinal/Abdominal: Positive for: Bowel Sounds (hypoactive), Tenderness (diffuse), Distended (firm). Negative for: Soft Back: Positive for: Normal Inspection Extremity: Positive for: Normal ROM Neurologic/Psych: Positive for: Alert, Oriented - Laboratory Results Result Diagrams: 04/17/17 06:05 04/17/17 06:05 - ECG ECG: Positive for: Viewed By Me (reviewed by ED attending) ECG Rhythm: Positive for: Sinus Rhythm O2 Sat by Pulse Oximetry: 100 - Radiology X-Ray: Viewed By Me X-Ray Interpretation: No Acute Disease - Progress ED Course And Treament: labs, urine, CT abd/pelvis EXAM: CT Abdomen and Pelvis With Intravenous Contrast CLINICAL HISTORY: 76 years old, male; Pain; Abdominal pain; Generalized; Prior surgery; Surgery date: 6+ months; Surgery type: Colon surgery; Additional info: Diffuse abd pain TECHNIQUE: Axial computed tomography images of the abdomen and pelvis with intravenous contrast. This CT exam was performed using one or more of the following dose reduction techniques : automated exposure control, adjustment of the mA and/or kV according to patient size, and/ or use of iterative reconstruction technique. Coronal and sagittal reformatted images were created and reviewed. CONTRAST: 95 mL of omnipaque administered intravenously. COMPARISON: CT - ABD PELVIS IV CONTRAST ONLY 01/05/2017 1:10:18 PM FINDINGS: Lower thorax: Mild atelectasis at the lung bases. Question tiny hiatal hernia. ABDOMEN: Liver: There are no focal liver lesions present. Gallbladder and bile ducts: The gallbladder is normal. No calcified stones. No ductal dilation. Pancreas: The pancreas is normal. No ductal dilation. Spleen: The spleen is normal. Adrenals: The adrenal glands are normal. Kidneys and ureters: The kidneys are normal. No hydronephrosis. Stomach and bowel: Stomach is decompressed. Moderate diverticulosis is present in the sigmoid and descending colon. No evidence for bowel obstruction. No mucosal thickening. Appendix: No findings to suggest acute appendicitis. PELVIS: Bladder: The bladder is normal. Reproductive: Prostate is enlarged measuring 5.5 CM transverse. ABDOMEN and PELVIS: Intraperitoneal space: There are postsurgical changes of bowel in the right lower quadrant. Additionally, there is a small rim-enhancing fluid collection in the right lower quadrant measuring 2.6 x 2.7 CM on series 601, image 56. There are surrounding inflammatory fat stranding changes. There are a few extraluminal gas bubbles in the region as well. The findings suggest anastomotic breakdown with abscess and microperforation. There are presumed secondary wall thickening changes involving nearby small bowel loops. There is no evidence of free intraperitoneal fluid. No evidence for large free air in the abdomen. Bones/joints: There are mild degenerative changes present. There is mild diffuse osteopenia. No acute fracture. No dislocation. Soft tissues: Unremarkable. Vasculature: The aorta demonstrates mild atherosclerotic calcification. No abdominal aortic aneurysm. Lymph nodes: There is no evidence of lymphadenopathy. IMPRESSION: There are postsurgical changes of bowel in the right lower quadrant. Additionally, there is a small rim-enhancing fluid collection in the right lower quadrant measuring 2.6 x 2.7 CM on series 601, image 56. There are surrounding inflammatory fat stranding changes. There are a few extraluminal gas bubbles in the region as well. The findings suggest anastomotic breakdown with abscess and microperforation. There are presumed secondary wall thickening changes involving nearby small bowel loops. IV zosyn dose ordered. Case discussed with Dr. Thurston, patient's primary doctor, will admit and consult Dr. Rocha for surgery. Call placed to Dr. Rocha Case discussed with Dr. Jones, vice president underwriting on-call, who evaluated patient at bedside. Disposition - Clinical Impression Clinical Impression: Anastomotic leak of intestine, Abdominal abscess - Disposition Disposition Time: 00:30 Condition: FAIR - Pt Status Changed To: Hospital Disposition Of: Inpatient - Admit Certification Admit to Inpatient:: After my assessment, the patient will require hospitalization for at least two midnights. This is because of the severity of symptoms shown, intensity of services needed, and/or the medical risk in this patient being treated as an outpatient. - POA Present On Arrival: Poor Glycemic Control
[2017-04-15 22:35] LABS: BASO % 0.1 % (0.0-2.0); EOS % 0.2 % (0.0-4.0); HEMOGLOBIN 10.2 g/dL (12.0-18.0); LYMPH # 1.4 K/uL (1.0-4.3); LYMPH % 16.8 % (20.0-40.0); MEAN CELL VOLUME 85.2 fl (80.0-94.0); MEAN CORPUSCULAR HEMOGLOBIN 27.8 pg (27.0-31.0); MEAN CORPUSCULAR HGB CONC 32.6 g/dL (33.0-37.0); MEAN PLATELET VOLUME 10.5 fl (7.2-11.7); MONO # 0.4 K/uL (0.0-0.8); MONO % 4.8 % (0.0-10.0); NEUT # 6.3 K/uL (1.8-7.0); NEUT % 78.1 % (50.0-75.0); RBC 3.68 Mil/uL (4.40-5.90); RED CELL DISTRIBUTION WIDTH 14.2 % (11.5-14.5); WHITE BLOOD COUNT 8.1 K/uL (4.8-10.8)
[2017-04-15 22:47] LABS: ALB/GLOB RATIO 1.3 (1.0-2.1); ALBUMIN 4.1 g/dL (3.5-5.0); ALT/SGPT 44 U/L (21-72); AST/SGOT 20 U/L (17-59); BLOOD UREA NITROGEN 22 mg/dl (9-20); CALCIUM 8.6 mg/dL (8.4-10.2); GFR AFRICAN-AMERICAN > 60; GFR NON-AFRICAN AMERICAN 59; LIPASE 81 U/L (23-300)
[2017-04-15] MEDS ORDERED: Sodium Chloride 0.9% 50 ML IV ONE ×2 (22:56→23:19)
[2017-04-15] MEDS ORDERED: Iohexol 300 100 ML IJ ONE ×2 (22:56→23:17)
[2017-04-15 22:57] LABS: INR 1.2 (0.9-1.2); PARTIAL THROMBOPLASTIN TIME 28.1 Seconds (25.6-37.1); PROTHROMBIN TIME 13.3 Seconds (9.8-13.1)
--- NOTE | 2017-04-16 00:13 | CT ---
EXAM: CT Abdomen and Pelvis With Intravenous Contrast CLINICAL HISTORY: 76 years old, male; Pain; Abdominal pain; Generalized; Prior surgery; Surgery date: 6+ months; Surgery type: Colon surgery; Additional info: Diffuse abd pain TECHNIQUE: Axial computed tomography images of the abdomen and pelvis with intravenous contrast. This CT exam was performed using one or more of the following dose reduction techniques: automated exposure control, adjustment of the mA and/or kV according to patient size, and/or use of iterative reconstruction technique. Coronal and sagittal reformatted images were created and reviewed. CONTRAST: 95 mL of omnipaque administered intravenously. COMPARISON: CT - ABD PELVIS IV CONTRAST ONLY 01/05/2017 1:10:18 PM FINDINGS: Lower thorax: Mild atelectasis at the lung bases. Question tiny hiatal hernia. ABDOMEN: Liver: There are no focal liver lesions present. Gallbladder and bile ducts: The gallbladder is normal. No calcified stones. No ductal dilation. Pancreas: The pancreas is normal. No ductal dilation. Spleen: The spleen is normal. Adrenals: The adrenal glands are normal. Kidneys and ureters: The kidneys are normal. No hydronephrosis. Stomach and bowel: Stomach is decompressed. Moderate diverticulosis is present in the sigmoid and descending colon. No evidence for bowel obstruction. No mucosal thickening. Appendix: No findings to suggest acute appendicitis. PELVIS: Bladder: The bladder is normal. Reproductive: Prostate is enlarged measuring 5.5 CM transverse. ABDOMEN and PELVIS: Intraperitoneal space: There are postsurgical changes of bowel in the right lower quadrant. Additionally, there is a small rim-enhancing fluid collection in the right lower quadrant measuring 2.6 x 2.7 CM on series 601, image 56. There are surrounding inflammatory fat stranding changes. There are a few extraluminal gas bubbles in the region as well. The findings suggest anastomotic breakdown with abscess and microperforation. There are presumed secondary wall thickening changes involving nearby small bowel loops. There is no evidence of free intraperitoneal fluid. No evidence for large free air in the abdomen. Bones/joints: There are mild degenerative changes present. There is mild diffuse osteopenia. No acute fracture. No dislocation. Soft tissues: Unremarkable. Vasculature: The aorta demonstrates mild atherosclerotic calcification. No abdominal aortic aneurysm. Lymph nodes: There is no evidence of lymphadenopathy. IMPRESSION: There are postsurgical changes of bowel in the right lower quadrant. Additionally, there is a small rim-enhancing fluid collection in the right lower quadrant measuring 2.6 x 2.7 CM on series 601, image 56. There are surrounding inflammatory fat stranding changes. There are a few extraluminal gas bubbles in the region as well. The findings suggest anastomotic breakdown with abscess and microperforation. There are presumed secondary wall thickening changes involving nearby small bowel loops.
[2017-04-16] MEDS ORDERED: Piperacillin/Tazobact 3.375 GM in Sodium Chloride 0.9% 100 ML IV ONE (00:16)
[2017-04-16] MEDS ORDERED: Piperacillin/Tazobact 3.375 gm Inj IVPB ONE (00:26)
[2017-04-16] MEDS ORDERED: Morphine 4 MG/ML VIAL IVP ONE (00:45)
[2017-04-16] MEDS ORDERED: Lactated Ringer's 1,000 ML IV SCH (01:00)
--- NOTE | 2017-04-16 01:04 | CP.PCM.CON ---
History of Present Illness - History of Present Illness History of Present Illness: General Surgery Consult note for Dr. Homa Jones, PGY-1 Pt S & E at bedside. 76 yo Macedonian speaking male w/PMH sig for Right hemicolectomy in September of 2016 with previous abscess formation consulted for abdominal pain x 1 day. Pain is diffuse, severe, "tight", non radiating, intermittent. Pain aggravated by walking/sitting, alleviated by pain medication. Pt reports having similar pain with previous admission in December with finding of abdominal abscess- had an IR drain placed into abscess. Last BM was day of ED visit. Admits to anorexia , "bloating". Denies N/V/F/C, changes in bowel or bladder habits, other complaints or recent illness. PMH: HTN, DM, hx PNA, HLD, hypothyroidism PSH: laparoscopic hand assisted ileocecectomy w/ primary anastomosis All: Denies SH: Denies ETOH, tobacco, or illicit drug use Review of Systems - Review of Systems All systems: reviewed and no additional remarkable complaints except - Constitutional Constitutional: absent: Chills, Fever - EENT Eyes: absent: Change in Vision Nose/Mouth/Throat: absent: Sore Throat - Cardiovascular Cardiovascular: absent: Chest Pain, Palpitations - Respiratory Respiratory: absent: Cough - Gastrointestinal Gastrointestinal: Abdominal Pain, Bloating. absent: Change in Bowel Habits, Constipation, Cramping, Diarrhea, Hematemesis, Hematochezia, Nausea, Vomiting - Genitourinary Genitourinary: absent: Dysuria, Hematuria - Musculoskeletal Musculoskeletal: absent: Numbness, Tingling - Neurological Neurological: absent: Weakness Past Patient History - Infectious Disease Hx of Infectious Diseases: None - Past Medical History & Family History Past Medical History?: Yes - Past Social History Smoking Status: Never Smoked - CARDIAC Hx Hypercholesterolemia: Yes Hx Hypertension: Yes - PULMONARY Hx Asthma: Yes Hx Pneumonia: Yes - NEUROLOGICAL Hx Neurological Disorder: No - HEENT Hx HEENT Problems: No - RENAL Hx Chronic Kidney Disease: No - ENDOCRINE/METABOLIC Hx Hypothyroidism: Yes (WAS PLACED ON MEDS PT DONT KNOW WHY) - HEMATOLOGICAL/ONCOLOGICAL Hx Human Immunodeficiency Virus (HIV): No - INTEGUMENTARY Hx Dermatological Problems: No - MUSCULOSKELETAL/RHEUMATOLOGICAL Hx Musculoskeletal Disorders: No Hx Falls: No - GASTROINTESTINAL Hx Gastrointestinal Disorders: Yes Hx Bowel Surgery: Yes - GENITOURINARY/GYNECOLOGICAL Hx Genitourinary Disorders: No - PSYCHIATRIC Hx Psychophysiologic Disorder: No Hx Substance Use: No - SURGICAL HISTORY Hx Surgeries: Yes Other/Comment: Bowel Resection- 09/2016 - ANESTHESIA Hx Anesthesia: Yes Hx Anesthesia Reactions: No Hx Malignant Hyperthermia: No Meds Allergies/Adverse Reactions: Allergies Allergy/AdvReac Type Severity Reaction Status Date / Time No Known Allergies Allergy Verified 04/15/17 20:42 - Medications Medications: Current Medications Piperacillin Sod/Tazobactam (Sod 3.375 gm/ Sodium Chloride) 100 mls @ 100 mls/ hr IV ONCE ONE Stop: 04/16/17 01:15 Last Admin: 04/16/17 00:31 Dose: 100 mls/hr Lactated Ringer's (Lactated Ringer's) 1,000 mls @ 100 mls/hr IV .Q10H [facility] Physical Exam - Constitutional Appears: Non-toxic, No Acute Distress - Head Exam Head Exam: ATRAUMATIC, NORMAL INSPECTION, NORMOCEPHALIC - Eye Exam Eye Exam: EOMI, Normal appearance - ENT Exam ENT Exam: Mucous Membranes Moist, Normal Exam - Neck Exam Neck exam: Positive for: Full Rom, Normal Inspection - Respiratory Exam Respiratory Exam: Clear to Auscultation Bilateral, NORMAL BREATHING PATTERN - Cardiovascular Exam Cardiovascular Exam: REGULAR RHYTHM, +S1, +S2 - GI/Abdominal Exam GI & Abdominal Exam: Diminished Bowel Sounds, Distended, Firm, Hypoactive Bowel Sounds, Tenderness (diffusely). absent: Guarding, Rebound, Rigid, Soft Additional comments: Well healed linear surgical incisions over RLQ and LLQ - Extremities Exam Extremities exam: Positive for: normal inspection. Negative for: tenderness - Neurological Exam Neurological exam: Alert, CN II-XII Intact, Oriented x3 - Psychiatric Exam Psychiatric exam: Normal Affect, Normal Mood - Skin Skin Exam: Dry, Intact, Normal Color, Warm Results - Vital Signs Recent Vital Signs: Last Vital Signs Temp 99.1 F 04/16/17 00:14 Pulse 77 04/16/17 00:14 Resp 16 04/16/17 00:14 BP 157/54 H 04/16/17 00:14 Pulse Ox 100 04/16/17 00:49 - Labs Result Diagrams: 04/15/17 22:15 04/15/17 22:15 Assessment & Plan - Assessment and Plan (Free Text) Assessment: 76M w/abdominal pain, likely 2/2 abscess and microperforation, possible anastomic breakdown Plan: NPO ABx IVF Pain mgmt IR consult for poss aspiration DW attending Karen, PGY-1 - Date & Time Date: 04/16/17 Time: 00:55
[2017-04-16] MEDS ORDERED: metroNIDAZOLE 500mg/100ml NS 100 ML IVPB SCH (01:30)
[2017-04-16] MEDS ORDERED: metroNIDAZOLE 500mg/100ml NS 100 ML IVPB ONE (01:31)
[2017-04-16 01:47] LABS: URINE BILIRUBIN NEGATIVE (NEGATIVE); URINE BLOOD NEGATIVE (NEGATIVE); URINE CLARITY CLEAR (Clear); URINE COLOR STRAW (YELLOW); URINE GLUCOSE (UA) NEG (Normal); URINE LEUKOCYTE ESTERASE NEG Leu/uL (Negative); URINE NITRATE NEGATIVE (NEGATIVE); URINE PROTEIN NEGATIVE (NEGATIVE); URINE UROBILINOGEN 0.2-1.0 mg/dL (0.2-1.0)
[2017-04-16] MEDS ORDERED: Piperacillin/Tazobact 3.375 GM in Sodium Chloride 0.9% 100 ML IVPB SCH (07:00)
[2017-04-16] MEDS: Insulin Lispro (humaLOG) 100 Units/ml Inj SC SCH ×4 (09:05→23:02)
[2017-04-16] MEDS: metroNIDAZOLE 500mg/100ml NS 250 MG in Premixed IV 1 EA IVPB SCH ×2 (09:13→18:31)
--- NOTE | 2017-04-16 09:44 | RAD ---
HISTORY: abd pain COMPARISON: No prior. FINDINGS: LUNGS: No active pulmonary disease. PLEURA: No significant pleural effusion identified, no pneumothorax apparent. CARDIOVASCULAR: Normal. OSSEOUS STRUCTURES: No significant abnormalities. VISUALIZED UPPER ABDOMEN: Normal. OTHER FINDINGS: None. IMPRESSION: No active disease.
[2017-04-16] MEDS: HCTZ/Losartan 12.5/50 Tab PO SCH (10:06)
--- NOTE | 2017-04-16 12:53 | CARD ---
APPROVED REPORT EKG Measurement Heart [id number] <Conclusion> Normal sinus rhythm Normal ECG
[2017-04-16] MEDS: Lactated Ringer's 1,000 ML IV SCH ×2 (16:49→21:31)
--- NOTE | 2017-04-16 17:14 | CP.PCM.PN ---
Subjective - Date & Time of Evaluation Date of Evaluation: 04/16/17 Time of Evaluation: 17:13 - Subjective Subjective: Pain improving Case discussed with IR. collection too small to tap. See resident full consult. Plan on cooling off with IV abx and surgery on thursday for right hemicolectomy. It is very strange to ahve recurrent leaks this far out from surgery. Colonmscopy one month ago did not demonstrate anything unusual. Objective - Vital Signs/Intake and Output Vital Signs (last 24 hours): Temp Pulse Resp BP Pulse Ox 98.5 F 65 20 169/67 H 96 04/16/17 16:32 04/16/17 16:48 04/16/17 16:32 04/16/17 16:48 04/16/17 16:32 - Medications Medications: Current Medications Amlodipine Besylate (Norvasc) 5 mg PO DAILY [facility] Last Admin: 04/16/17 09:26 Dose: 5 mg Fenofibrate (Tricor) 145 mg PO DAILY [facility] Last Admin: 04/16/17 12:29 Dose: 145 mg HCTZ/Losartan Potassium (Hyzaar 12.5 Mg-50 Mg) 1 tab PO DAILY [facility] Last Admin: 04/16/17 10:06 Dose: 1 tab Hydralazine HCl (Apresoline) 25 mg PO Q8H [facility] Last Admin: 04/16/17 16:48 Dose: 25 mg Metronidazole 250 mg/ (Miscellaneous) 50 mls @ 50 mls/hr IVPB Q8 [facility] Last Admin: 04/16/17 09:13 Dose: 50 mls/hr Piperacillin Sod/Tazobactam (Sod 2.25 gm/ Sodium Chloride) 100 mls @ 100 mls/ hr IVPB Q8 [facility] Last Admin: 04/16/17 16:50 Dose: 100 mls/hr Lactated Ringer's (Lactated Ringer's) 1,000 mls @ 125 mls/hr IV .Q8H [facility] Last Admin: 04/16/17 16:49 Dose: 125 mls/hr Insulin Human Lispro (Humalog) 0 units SC ACCU-CHECK [facility] PRN Reason: Protocol Last Admin: 04/16/17 12:17 Dose: Not Given Ketorolac Tromethamine (Toradol) 15 mg IVP Q6 PRN PRN Reason: Pain, moderate (4-7) Last Admin: 04/16/17 12:26 Dose: 15 mg Metoprolol Tartrate (Lopressor) 100 mg PO DAILY [facility] Last Admin: 04/16/17 10:54 Dose: 100 mg Morphine Sulfate (Morphine) 4 mg IVP Q6 PRN PRN Reason: Pain, severe (8-10) Last Admin: 04/16/17 16:50 Dose: 4 mg Ondansetron HCl (Zofran Inj) 4 mg IVP Q6 PRN PRN Reason: Nausea/Vomiting - Labs Labs: PT 13.3 Seconds (9.8-13.1) H 04/15/17 22:15 INR 1.2 (0.9-1.2) 04/15/17 22:15 APTT 28.1 Seconds (25.6-37.1) 04/15/17 22:15
[2017-04-17] MEDS: metroNIDAZOLE 500mg/100ml NS 250 MG in Premixed IV 1 EA IVPB SCH ×3 (00:03→16:24)
[2017-04-17] MEDS ORDERED: Morphine 4 MG/ML VIAL IVP PRN (05:00)
[2017-04-17] MEDS: Lactated Ringer's 1,000 ML IV SCH ×2 (07:06→16:23)
[2017-04-17 07:09] LABS: HEMOGLOBIN 9.6 g/dL (12.0-18.0); MEAN CELL VOLUME 84.6 fl (80.0-94.0); MEAN CORPUSCULAR HEMOGLOBIN 28.4 pg (27.0-31.0); MEAN CORPUSCULAR HGB CONC 33.5 g/dL (33.0-37.0); RBC 3.37 Mil/uL (4.40-5.90); WHITE BLOOD COUNT 6.4 K/uL (4.8-10.8)
[2017-04-17 07:44] LABS: BLOOD UREA NITROGEN 16 mg/dl (9-20); CALCIUM 8.1 mg/dL (8.4-10.2); GFR AFRICAN-AMERICAN > 60; GFR NON-AFRICAN AMERICAN > 60
--- NOTE | 2017-04-17 08:13 | CP.PCM.PN ---
Subjective - Date & Time of Evaluation Date of Evaluation: 04/17/17 Time of Evaluation: 08:11 - Subjective Subjective: Surgery: Dr. Rocha Pt seen and examined. Pt continues to have diffuse abd pain, worse on R side. No F/C. No N/V/D. Objective - Vital Signs/Intake and Output Vital Signs (last 24 hours): Temp Pulse Resp BP Pulse Ox 99.3 F 73 20 161/67 H 94 L 04/17/17 00:13 04/17/17 00:13 04/17/17 00:13 04/17/17 00:13 04/17/17 00:13 - Medications Medications: Current Medications Amlodipine Besylate (Norvasc) 5 mg PO DAILY [facility] Last Admin: 04/16/17 09:26 Dose: 5 mg Fenofibrate (Tricor) 145 mg PO DAILY [facility] Last Admin: 04/16/17 12:29 Dose: 145 mg HCTZ/Losartan Potassium (Hyzaar 12.5 Mg-50 Mg) 1 tab PO DAILY [facility] Last Admin: 04/16/17 10:06 Dose: 1 tab Hydralazine HCl (Apresoline) 25 mg PO Q8H [facility] Last Admin: 04/17/17 00:03 Dose: 25 mg Metronidazole 250 mg/ (Miscellaneous) 50 mls @ 50 mls/hr IVPB Q8 [facility] Last Admin: 04/17/17 00:03 Dose: 50 mls/hr Piperacillin Sod/Tazobactam (Sod 2.25 gm/ Sodium Chloride) 100 mls @ 100 mls/ hr IVPB Q8 [facility] Last Admin: 04/17/17 00:02 Dose: 100 mls/hr Lactated Ringer's (Lactated Ringer's) 1,000 mls @ 125 mls/hr IV .Q8H [facility] Last Admin: 04/17/17 07:06 Dose: Not Given Insulin Human Lispro (Humalog) 0 units SC ACCU-CHECK PAZ PRN Reason: Protocol Last Admin: 04/16/17 23:02 Dose: Not Given Ketorolac Tromethamine (Toradol) 15 mg IVP Q6 PRN PRN Reason: Pain, moderate (4-7) Last Admin: 04/16/17 12:26 Dose: 15 mg Metoprolol Tartrate (Lopressor) 100 mg PO DAILY [facility] Last Admin: 04/16/17 10:54 Dose: 100 mg Morphine Sulfate (Morphine) 4 mg IVP Q6 PRN PRN Reason: Pain, severe (8-10) Last Admin: 04/17/17 05:01 Dose: 4 mg Ondansetron HCl (Zofran Inj) 4 mg IVP Q6 PRN PRN Reason: Nausea/Vomiting - Labs Labs: 04/17/17 06:05 04/17/17 06:05 PT 13.3 Seconds (9.8-13.1) H 04/15/17 22:15 INR 1.2 (0.9-1.2) 04/15/17 22:15 APTT 28.1 Seconds (25.6-37.1) 04/15/17 22:15 - Constitutional Appears: Non-toxic, No Acute Distress - Head Exam Head Exam: ATRAUMATIC, NORMOCEPHALIC - Eye Exam Eye Exam: EOMI. absent: Scleral icterus - ENT Exam ENT Exam: Mucous Membranes Moist, Normal External Ear Exam - Neck Exam Neck Exam: Full ROM - Respiratory Exam Respiratory Exam: NORMAL BREATHING PATTERN. absent: Accessory Muscle Use, Respiratory Distress - GI/Abdominal Exam GI & Abdominal Exam: Distended (mild), Soft, Tenderness (diffuse, worse on R side). absent: Firm, Guarding, Rigid, Rebound - Extremities Exam Extremities Exam: absent: Calf Tenderness, Pedal Edema - Neurological Exam Neurological Exam: Alert, Awake, Oriented x3 Assessment and Plan - Assessment and Plan (Free Text) Assessment: 76M s/p ileocectomy, now w. abd pain, concerns for anastomotic breakdown -c/w abx -c/w pain meds -will give pt CLD, do NOT advance diet -plan for OR on Thursday for R hemicolectomy -d/w attending Zemaitis PGY3
[2017-04-17] MEDS: Insulin Lispro (humaLOG) 100 Units/ml Inj SC SCH ×4 (09:33→22:47)
[2017-04-17] MEDS: HCTZ/Losartan 12.5/50 Tab PO SCH (09:34)
--- NOTE | 2017-04-17 12:55 | CP.PCM.CON ---
History of Present Illness - History of Present Illness History of Present Illness: GI consult requested by Dr Thurston-This is a 76 year old male with right ileocecectomy in sep 2016 and primary anastomosis with previous abscess formation admitted with RLQ pain that started 2 days ago. Pain is sharp, non radiating and agravated by movement and touch. He was previously admitted in December for similar pain and was found to have small fluid collection s/p IR drain. Had small brown bowel movement today. States has had loss of appetite. He had colonoscopy with Dr Do in February 2016 showing multiple right sided polyps and healthy appearing anastomotic mucosa. Polyps were resected and pathology showed tubular adenoma. Review of Systems - Review of Systems Review of Systems: 12 point ROS as documented in HPI Past Patient History - Infectious Disease Hx of Infectious Diseases: None - Past Medical History & Family History Past Medical History?: Yes - Past Social History Smoking Status: Never Smoked - CARDIAC Hx Hypercholesterolemia: Yes Hx Hypertension: Yes - PULMONARY Hx Asthma: Yes Hx Pneumonia: Yes - NEUROLOGICAL Hx Neurological Disorder: No - HEENT Hx HEENT Problems: No - RENAL Hx Chronic Kidney Disease: No - ENDOCRINE/METABOLIC Hx Hypothyroidism: Yes (WAS PLACED ON MEDS PT DONT KNOW WHY) - HEMATOLOGICAL/ONCOLOGICAL Hx Human Immunodeficiency Virus (HIV): No - INTEGUMENTARY Hx Dermatological Problems: No - MUSCULOSKELETAL/RHEUMATOLOGICAL Hx Musculoskeletal Disorders: No Hx Falls: No - GASTROINTESTINAL Hx Gastrointestinal Disorders: Yes Hx Bowel Surgery: Yes - GENITOURINARY/GYNECOLOGICAL Hx Genitourinary Disorders: No - PSYCHIATRIC Hx Psychophysiologic Disorder: No Hx Substance Use: No - SURGICAL HISTORY Hx Surgeries: Yes Other/Comment: Bowel Resection- 09/2016 - ANESTHESIA Hx Anesthesia: Yes Hx Anesthesia Reactions: No Hx Malignant Hyperthermia: No Meds Allergies/Adverse Reactions: Allergies Allergy/AdvReac Type Severity Reaction Status Date / Time No Known Allergies Allergy Verified 04/15/17 20:42 - Medications Medications: Current Medications Amlodipine Besylate (Norvasc) 5 mg PO DAILY [facility] Last Admin: 04/17/17 09:35 Dose: 5 mg Fenofibrate (Tricor) 145 mg PO DAILY [facility] Last Admin: 04/17/17 09:35 Dose: 145 mg HCTZ/Losartan Potassium (Hyzaar 12.5 Mg-50 Mg) 1 tab PO DAILY [facility] Last Admin: 04/17/17 09:34 Dose: 1 tab Hydralazine HCl (Apresoline) 25 mg PO Q8H [facility] Last Admin: 04/17/17 09:32 Dose: 25 mg Metronidazole 250 mg/ (Miscellaneous) 50 mls @ 50 mls/hr IVPB Q8 [facility] Last Admin: 04/17/17 09:32 Dose: 50 mls/hr Piperacillin Sod/Tazobactam (Sod 2.25 gm/ Sodium Chloride) 100 mls @ 100 mls/ hr IVPB Q8 [facility] Last Admin: 04/17/17 09:35 Dose: 100 mls/hr Lactated Ringer's (Lactated Ringer's) 1,000 mls @ 125 mls/hr IV .Q8H [facility] Last Admin: 04/17/17 07:06 Dose: Not Given Insulin Human Lispro (Humalog) 0 units SC ACCU-CHECK [facility] PRN Reason: Protocol Last Admin: 04/17/17 09:33 Dose: Not Given Ketorolac Tromethamine (Toradol) 15 mg IVP Q6 PRN PRN Reason: Pain, moderate (4-7) Last Admin: 04/16/17 12:26 Dose: 15 mg Metoprolol Tartrate (Lopressor) 100 mg PO DAILY [facility] Last Admin: 04/17/17 09:34 Dose: 100 mg Morphine Sulfate (Morphine) 4 mg IVP Q6 PRN PRN Reason: Pain, severe (8-10) Last Admin: 04/17/17 05:01 Dose: 4 mg Ondansetron HCl (Zofran Inj) 4 mg IVP Q6 PRN PRN Reason: Nausea/Vomiting Physical Exam - Constitutional Appears: Non-toxic, No Acute Distress - Head Exam Head Exam: ATRAUMATIC, NORMAL INSPECTION, NORMOCEPHALIC - Eye Exam Eye Exam: EOMI, Normal appearance, PERRL - ENT Exam ENT Exam: Mucous Membranes Moist, Normal Exam - Respiratory Exam Respiratory Exam: Clear to Auscultation Bilateral, NORMAL BREATHING PATTERN - Cardiovascular Exam Cardiovascular Exam: REGULAR RHYTHM - GI/Abdominal Exam GI & Abdominal Exam: Soft Additional comments: No bowel sounds illicited Guarding on RLQ Pain with palpation - Neurological Exam Neurological exam: Alert, Oriented x3 - Psychiatric Exam Psychiatric exam: Normal Affect, Normal Mood - Skin Skin Exam: Dry, Intact Results - Vital Signs Recent Vital Signs: Last Vital Signs Temp 98.7 F 04/17/17 08:17 Pulse 83 04/17/17 09:35 Resp 20 04/17/17 08:17 BP 161/68 H 04/17/17 09:35 Pulse Ox 94 L 04/17/17 08:17 - Labs Result Diagrams: 04/17/17 06:05 04/17/17 06:05 Labs: Laboratory Results - last 24 hr 04/16/17 04/16/17 04/17/17 17:24 21:24 06:05 WBC 6.4 RBC 3.37 L Hgb 9.6 L Hct 28.5 L MCV 84.6 MCH 28.4 MCHC 33.5 RDW 14.0 Plt Count 134 Sodium Potassium Chloride Carbon Dioxide Anion Gap BUN Creatinine Est GFR ( Amer) Est GFR (Non-Af Amer) POC Glucose (mg/dL) 124 H 137 H Random Glucose Calcium 04/17/17 04/17/17 04/17/17 06:05 06:14 11:34 WBC RBC Hgb Hct MCV MCH MCHC RDW Plt Count Sodium 136 Potassium 3.9 Chloride 104 Carbon Dioxide 22 Anion Gap 15 BUN 16 Creatinine 1.1 Est GFR ( Amer) > 60 Est GFR (Non-Af Amer) > 60 POC Glucose (mg/dL) 154 H 139 H Random Glucose 138 H Calcium 8.1 L Assessment & Plan - Assessment and Plan (Free Text) Assessment: 76 yr old M with right ileocecectomy with primary anastomosis in Sep 2016 admitted with RLQ pain found to have imaging evidence of anastomotic breakdown and micro perforation. Patient is planned for OR for next week. Currently on IV antibiotics. Plan: - Agree with surgical intervention - Colonoscopy did not show any luminal findings except polyps that were resected - IV antibiotics as you are doing - IVF - Pain control - clear liquid diet as per surgery - trend daily fever and wbc curve - Will follow - Date & Time Date: 04/17/17
[2017-04-17] MEDS ORDERED: Morphine 4 MG/ML VIAL IVP ONE (23:58)
[2017-04-18] MEDS: metroNIDAZOLE 500mg/100ml NS 250 MG in Premixed IV 1 EA IVPB SCH ×3 (00:30→16:35)
--- NOTE | 2017-04-18 00:49 | PN ---
DAILY PROGRESS NOTE DATE: 04/17/2017 SUBJECTIVE: The patient is seen today, 04/17/2017. He is not in cardiopulmonary distress, and the patient *------* right lower abdominal pain. PHYSICAL EXAMINATION VITAL SIGNS: Blood pressure is 149/65, temperature is 97.3, respiratory rate 17, pulse is 83. HEENT: Pupils equal, reactive to light. Normal-appearing mucosa, conjunctivae, oropharyngeal, nasal membrane mucosa. NECK: Supple. No JVD. No carotid bruit. No lymph node. No thyromegaly. CHEST AND LUNGS: Bilateral symmetrical expansion, good air exchange. No rales, no rhonchi. CARDIOVASCULAR SYSTEM: PMI not localized. S1 and S2. No additional sounds. ABDOMEN: No organomegaly, no masses. There is tenderness in the right lower quadrant. EXTREMITIES: No cyanosis, no clubbing, no edema. 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 No neurological deficit could be appreciated. ASSESSMENT: 1. Right lower quadrant pain secondary to possible microperforation at the anastomotic site of previously excised *------* cyst. 2. Hypertension. 3. Type 2 diabetes mellitus. PLAN: Continue current IV antibiotics and follow surgical recommendations. Continue Accu-Cheks with insulin coverage and the current antihypertensive medications. Shashi Thurston MD
--- NOTE | 2017-04-18 07:21 | CP.PCM.PN ---
<Delma Landers - Last Filed: 04/18/17 09:41> Subjective - Date & Time of Evaluation Date of Evaluation: 04/18/17 Time of Evaluation: 07:19 - Subjective Subjective: Gastroenterology Fellow/PGY5 Progress Note Patient notes mild right lower abdominal pain. Tolerating liquid diet. One bowel movement yesterday. A 12-point review of systems negative except for as above. Objective - Vital Signs/Intake and Output Vital Signs (last 24 hours): Temp Pulse Resp BP Pulse Ox 97.6 F 88 20 158/86 H 98 04/18/17 00:24 04/18/17 00:31 04/18/17 00:24 04/18/17 00:31 04/18/17 00:24 - Medications Medications: Current Medications Amlodipine Besylate (Norvasc) 5 mg PO DAILY [facility] Last Admin: 04/17/17 09:35 Dose: 5 mg Fenofibrate (Tricor) 145 mg PO DAILY [facility] Last Admin: 04/17/17 09:35 Dose: 145 mg HCTZ/Losartan Potassium (Hyzaar 12.5 Mg-50 Mg) 1 tab PO DAILY [facility] Last Admin: 04/17/17 09:34 Dose: 1 tab Hydralazine HCl (Apresoline) 25 mg PO Q8H [facility] Last Admin: 04/18/17 00:31 Dose: 25 mg Metronidazole 250 mg/ (Miscellaneous) 50 mls @ 50 mls/hr IVPB Q8 [facility] Last Admin: 04/18/17 00:30 Dose: 50 mls/hr Piperacillin Sod/Tazobactam (Sod 2.25 gm/ Sodium Chloride) 100 mls @ 100 mls/ hr IVPB Q8 [facility] Last Admin: 04/18/17 00:30 Dose: 100 mls/hr Lactated Ringer's (Lactated Ringer's) 1,000 mls @ 125 mls/hr IV .Q8H [facility] Last Admin: 04/17/17 16:23 Dose: Not Given Insulin Human Lispro (Humalog) 0 units SC ACCU-CHECK [facility] PRN Reason: Protocol Last Admin: 04/17/17 22:47 Dose: Not Given Ketorolac Tromethamine (Toradol) 15 mg IVP Q6 PRN PRN Reason: Pain, moderate (4-7) Last Admin: 04/16/17 12:26 Dose: 15 mg Metoprolol Tartrate (Lopressor) 100 mg PO DAILY [facility] Last Admin: 04/17/17 09:34 Dose: 100 mg Morphine Sulfate (Morphine) 4 mg IVP Q6 PRN PRN Reason: Pain, severe (8-10) Last Admin: 04/17/17 05:01 Dose: 4 mg Ondansetron HCl (Zofran Inj) 4 mg IVP Q6 PRN PRN Reason: Nausea/Vomiting - Labs Labs: 04/17/17 06:05 04/17/17 06:05 PT 13.3 Seconds (9.8-13.1) H 04/15/17 22:15 INR 1.2 (0.9-1.2) 04/15/17 22:15 APTT 28.1 Seconds (25.6-37.1) 04/15/17 22:15 - Constitutional Appears: Non-toxic, No Acute Distress - Head Exam Head Exam: ATRAUMATIC, NORMOCEPHALIC - Eye Exam Eye Exam: EOMI, PERRL Pupil Exam: PERRL. absent: Miosis, Mydriatic - ENT Exam ENT Exam: Mucous Membranes Moist, Normal Oropharynx - Neck Exam Neck Exam: Full ROM, Normal Inspection - Respiratory Exam Respiratory Exam: Clear to Ausculation Bilateral. absent: Rales, Rhonchi, Wheezes - Cardiovascular Exam Cardiovascular Exam: RRR, +S1, +S2. absent: Gallop, Rubs - GI/Abdominal Exam GI & Abdominal Exam: Soft, Tenderness, Normal Bowel Sounds. absent: Distended, Firm, Guarding, Rigid, Organomegaly, Rebound Additional comments: RLQ tenderness to palpation - Extremities Exam Extremities Exam: Full ROM. 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 Active treatment of anastomotic breakdown, 2.6x2.7cm abscess formation, and micro-perforation on CT A/P PO/IV contrast. Prior colonoscopy February 2017 showed four right-sided tubular adenomas, one rectal hyperplastic polyp, and intact anastomosis site. Plan: >surgery managing- right hemicolectomy Thursday >continue Zosyn and Flagyl >supportive care: antiemetics, pain control >clear liquids as tolerated >will follow clinical course <Harrison Do - Last Filed: 04/18/17 09:59> Objective - Vital Signs/Intake and Output Vital Signs (last 24 hours): Temp Pulse Resp BP Pulse Ox 98.8 F 65 20 170/75 H 97 04/18/17 08:45 04/18/17 08:52 04/18/17 08:45 04/18/17 08:52 04/18/17 08:45 - Medications Medications: Current Medications Amlodipine Besylate (Norvasc) 5 mg PO DAILY [facility] Last Admin: 04/18/17 08:52 Dose: 5 mg Fenofibrate (Tricor) 145 mg PO DAILY [facility] Last Admin: 04/18/17 08:52 Dose: 145 mg HCTZ/Losartan Potassium (Hyzaar 12.5 Mg-50 Mg) 1 tab PO DAILY [facility] Last Admin: 04/18/17 08:52 Dose: 1 tab Hydralazine HCl (Apresoline) 25 mg PO Q8H [facility] Last Admin: 04/18/17 08:51 Dose: 25 mg Metronidazole 250 mg/ (Miscellaneous) 50 mls @ 50 mls/hr IVPB Q8 [facility] Last Admin: 04/18/17 08:51 Dose: 50 mls/hr Piperacillin Sod/Tazobactam (Sod 2.25 gm/ Sodium Chloride) 100 mls @ 100 mls/ hr IVPB Q8 [facility] Last Admin: 04/18/17 00:30 Dose: 100 mls/hr Lactated Ringer's (Lactated Ringer's) 1,000 mls @ 125 mls/hr IV .Q8H [facility] Last Admin: 04/18/17 07:22 Dose: 125 mls/hr Insulin Human Lispro (Humalog) 0 units SC ACCU-CHECK [facility] PRN Reason: Protocol Last Admin: 04/18/17 07:52 Dose: 2 units Ketorolac Tromethamine (Toradol) 15 mg IVP Q6 PRN PRN Reason: Pain, moderate (4-7) Last Admin: 04/16/17 12:26 Dose: 15 mg Metoprolol Tartrate (Lopressor) 100 mg PO DAILY [facility] Last Admin: 04/17/17 09:34 Dose: 100 mg Morphine Sulfate (Morphine) 4 mg IVP Q6 PRN PRN Reason: Pain, severe (8-10) Last Admin: 04/17/17 05:01 Dose: 4 mg Ondansetron HCl (Zofran Inj) 4 mg IVP Q6 PRN PRN Reason: Nausea/Vomiting - Labs Labs: 04/17/17 06:05 04/17/17 06:05 PT 13.3 Seconds (9.8-13.1) H 04/15/17 22:15 INR 1.2 (0.9-1.2) 04/15/17 22:15 APTT 28.1 Seconds (25.6-37.1) 04/15/17 22:15 Attending/Attestation - Attestation I have personally seen and examined this patient.: Yes I have fully participated in the care of the patient.: Yes I have reviewed all pertinent clinical information, including history, physical exam and plan: Yes Notes (Text): 04/18/17 09:55 I have seen and examined patient with GI fellow. No acute events overnight, he is seen ambulating in room and appears comfortable. He endorses mild RLQ abdominal pain but otherwise denies nausea, vomiting, fever/chills. Tolerating liquid diet without difficulty. Review of vitals from today shows elevated BP. DM / HTN History of sclerosing mucinous neoplasm s/p ileocecectomy, complicated by development of abdominal abscess s/p IR drainage in December 2016 Abdominal pain, recurrent abdominal abscess - Continue with liquid diet - Continue with antibiotic therapy - Patient planned for surgical intervention with R hemicolectomy and abscess debridement on thursday - Pain control and anti-emetic therapy PRN - Will continue to monitor patient clinical course
[2017-04-18] MEDS: Lactated Ringer's 1,000 ML IV SCH ×2 (07:22→14:09)
[2017-04-18] MEDS: Insulin Lispro (humaLOG) 100 Units/ml Inj SC SCH ×4 (07:52→22:08)
[2017-04-18] MEDS: HCTZ/Losartan 12.5/50 Tab PO SCH (08:52)
--- NOTE | 2017-04-18 10:31 | CP.PCM.PN ---
Subjective - Date & Time of Evaluation Date of Evaluation: 04/18/17 Time of Evaluation: 10:29 - Subjective Subjective: Surgery for Dr. Rocha Pt s&e. Tolerating CLD. Had BM yesterday. Regular. + void. + amb. Pain controlled. Objective - Vital Signs/Intake and Output Vital Signs (last 24 hours): Temp Pulse Resp BP Pulse Ox 98.8 F 65 20 170/75 H 97 04/18/17 08:45 04/18/17 08:52 04/18/17 08:45 04/18/17 08:52 04/18/17 08:45 - Medications Medications: Current Medications Amlodipine Besylate (Norvasc) 5 mg PO DAILY [facility] Last Admin: 04/18/17 08:52 Dose: 5 mg Fenofibrate (Tricor) 145 mg PO DAILY [facility] Last Admin: 04/18/17 08:52 Dose: 145 mg HCTZ/Losartan Potassium (Hyzaar 12.5 Mg-50 Mg) 1 tab PO DAILY [facility] Last Admin: 04/18/17 08:52 Dose: 1 tab Hydralazine HCl (Apresoline) 25 mg PO Q8H [facility] Last Admin: 04/18/17 08:51 Dose: 25 mg Metronidazole 250 mg/ (Miscellaneous) 50 mls @ 50 mls/hr IVPB Q8 [facility] Last Admin: 04/18/17 08:51 Dose: 50 mls/hr Piperacillin Sod/Tazobactam (Sod 2.25 gm/ Sodium Chloride) 100 mls @ 100 mls/ hr IVPB Q8 [facility] Last Admin: 04/18/17 09:55 Dose: 100 mls/hr Lactated Ringer's (Lactated Ringer's) 1,000 mls @ 125 mls/hr IV .Q8H [facility] Last Admin: 04/18/17 07:22 Dose: 125 mls/hr Insulin Human Lispro (Humalog) 0 units SC ACCU-CHECK [facility] PRN Reason: Protocol Last Admin: 04/18/17 07:52 Dose: 2 units Ketorolac Tromethamine (Toradol) 15 mg IVP Q6 PRN PRN Reason: Pain, moderate (4-7) Last Admin: 04/16/17 12:26 Dose: 15 mg Metoprolol Tartrate (Lopressor) 100 mg PO DAILY [facility] Last Admin: 04/17/17 09:34 Dose: 100 mg Morphine Sulfate (Morphine) 4 mg IVP Q6 PRN PRN Reason: Pain, severe (8-10) Last Admin: 04/17/17 05:01 Dose: 4 mg Ondansetron HCl (Zofran Inj) 4 mg IVP Q6 PRN PRN Reason: Nausea/Vomiting - Labs Labs: 04/17/17 06:05 04/17/17 06:05 PT 13.3 Seconds (9.8-13.1) H 04/15/17 22:15 INR 1.2 (0.9-1.2) 04/15/17 22:15 APTT 28.1 Seconds (25.6-37.1) 04/15/17 22:15 - Constitutional Appears: No Acute Distress - Head Exam Head Exam: ATRAUMATIC, NORMAL INSPECTION, NORMOCEPHALIC - Eye Exam Eye Exam: EOMI, Normal appearance, PERRL Pupil Exam: NORMAL ACCOMODATION, PERRL - ENT Exam ENT Exam: Mucous Membranes Moist, Normal Exam - Neck Exam Neck Exam: Full ROM, Normal Inspection. absent: Lymphadenopathy - Respiratory Exam Respiratory Exam: Clear to Ausculation Bilateral, NORMAL BREATHING PATTERN - Cardiovascular Exam Cardiovascular Exam: REGULAR RHYTHM, +S1, +S2. absent: Murmur - GI/Abdominal Exam GI & Abdominal Exam: Soft, Tenderness, Normal Bowel Sounds. absent: Distended, Firm, Guarding Additional comments: R TTP - Extremities Exam Extremities Exam: Full ROM, Normal Capillary Refill, Normal Inspection. absent : Joint Swelling, Pedal Edema - Back Exam Back Exam: NORMAL INSPECTION - Neurological Exam Neurological Exam: Alert, Awake, CN II-XII Intact, Normal Gait, Oriented x3 - Psychiatric Exam Psychiatric exam: Normal Affect, Normal Mood - Skin Skin Exam: Dry, Intact, Normal Color, Warm Assessment and Plan - Assessment and Plan (Free Text) Assessment: 76M s/p ileocectomy, now w. abd pain, concerns for anastomotic breakdown -c/w abx -c/w pain meds -will give pt CLD, do NOT advance diet -plan for OR on Thursday for R hemicolectomy -will d/w attending
--- NOTE | 2017-04-18 17:18 | PN ---
DATE: 04/18/2017 SUBJECTIVE: The patient is seen today, 04/18/2017. PHYSICAL EXAMINATION: VITAL SIGNS: Blood pressure is 166/72, temperature is 98.8, respiratory rate 20 and pulse 67. HEENT: Pupils equal, reactive to light. Normal-appearing mucosa, conjunctivae, oropharyngeal, nasal membrane mucosa. NECK: Supple. No JVD. No carotid bruit. No lymph node. No thyromegaly. CHEST AND LUNGS: Bilateral symmetrical expansion, good air exchange. No rales, no rhonchi. CARDIOVASCULAR SYSTEM: PMI not localized. S1 and S2. No additional sounds. ABDOMEN: Normoactive bowel sounds. Slight tenderness in the right lower quadrant. EXTREMITIES: No cyanosis, no clubbing, no edema. MACHINIST: Alert, awake, oriented x3. No neurological deficit could be appreciated. ASSESSMENT: 1. Right lower abdominal pain and tenderness secondary to underlying inflammatory changes and possible microperforation. Symptoms and signs are improving on current antibiotics. 2. Type 2 diabetes mellitus. 3. Hypertension. PLAN: Continue current antibiotics and advance diet as tolerated and follow surgical recommendations. Shashi Thurston MD
[2017-04-19] MEDS: metroNIDAZOLE 500mg/100ml NS 250 MG in Premixed IV 1 EA IVPB SCH ×3 (00:58→16:30)
[2017-04-19] MEDS: Insulin Lispro (humaLOG) 100 Units/ml Inj SC SCH ×4 (07:08→22:31)
[2017-04-19 08:11] LABS: MEAN CELL VOLUME 84.4 fl (80.0-94.0); MEAN CORPUSCULAR HEMOGLOBIN 28.3 pg (27.0-31.0); MEAN CORPUSCULAR HGB CONC 33.5 g/dL (33.0-37.0); RBC 3.55 Mil/uL (4.40-5.90); RED CELL DISTRIBUTION WIDTH 13.6 % (11.5-14.5); WHITE BLOOD COUNT 3.7 K/uL (4.8-10.8)
[2017-04-19 08:17] LABS: GFR AFRICAN-AMERICAN > 60; GFR NON-AFRICAN AMERICAN > 60
[2017-04-19 08:18] LABS: BLOOD UREA NITROGEN 8 mg/dl (9-20)
[2017-04-19] MEDS: Lactated Ringer's 1,000 ML IV SCH ×3 (08:31→22:20)
[2017-04-19] MEDS: HCTZ/Losartan 12.5/50 Tab PO SCH (08:34)
--- NOTE | 2017-04-19 08:41 | CP.PCM.PN ---
<Dlema Landers - Last Filed: 04/19/17 09:34> Subjective - Date & Time of Evaluation Date of Evaluation: 04/19/17 Time of Evaluation: 09:33 - Subjective Subjective: Gastroenterology Fellow/PGY5 Progress Note Patient notes minimal right lower abdomen pain, pain scale 2/10. Tolerating clear liquids. Formed bowel movement yesterday and states he is getting ready to go this morning. A 12-point review of systems negative except for as above. Objective - Vital Signs/Intake and Output Vital Signs (last 24 hours): Temp Pulse Resp BP Pulse Ox 98.1 F 66 20 171/65 H 97 04/19/17 07:42 04/19/17 08:34 04/19/17 07:42 04/19/17 08:34 04/19/17 07:42 - Medications Medications: Current Medications Amlodipine Besylate (Norvasc) 5 mg PO DAILY [facility] Last Admin: 04/19/17 08:34 Dose: 5 mg Fenofibrate (Tricor) 145 mg PO DAILY [facility] [place] Last Admin: 04/19/17 08:35 Dose: 145 mg HCTZ/Losartan Potassium (Hyzaar 12.5 Mg-50 Mg) 1 tab PO DAILY [facility] [place] Last Admin: 04/19/17 08:34 Dose: 1 tab Hydralazine HCl (Apresoline) 25 mg PO Q8H [facility] Last Admin: 04/19/17 08:33 Dose: 25 mg Metronidazole 250 mg/ (Miscellaneous) 50 mls @ 50 mls/hr IVPB Q8 [facility] [place] Last Admin: 04/19/17 08:32 Dose: 50 mls/hr Piperacillin Sod/Tazobactam (Sod 2.25 gm/ Sodium Chloride) 100 mls @ 100 mls/ hr IVPB Q8 [facility] [place] Last Admin: 04/19/17 00:58 Dose: 100 mls/hr Lactated Ringer's (Lactated Ringer's) 1,000 mls @ 125 mls/hr IV .Q8H [facility] Last Admin: 04/19/17 08:31 Dose: 125 mls/hr Insulin Human Lispro (Humalog) 0 units SC ACCU-CHECK [facility] PRN Reason: Protocol Last Admin: 04/19/17 07:08 Dose: Not Given Ketorolac Tromethamine (Toradol) 15 mg IVP Q6 PRN PRN Reason: Pain, moderate (4-7) Last Admin: 04/16/17 12:26 Dose: 15 mg Metoprolol Tartrate (Lopressor) 100 mg PO DAILY [facility] Last Admin: 04/19/17 08:34 Dose: 100 mg Morphine Sulfate (Morphine) 4 mg IVP Q6 PRN PRN Reason: Pain, severe (8-10) Last Admin: 04/17/17 05:01 Dose: 4 mg Ondansetron HCl (Zofran Inj) 4 mg IVP Q6 PRN PRN Reason: Nausea/Vomiting - Labs Labs: 04/19/17 05:30 04/17/17 06:05 PT 13.3 Seconds (9.8-13.1) H 04/15/17 22:15 INR 1.2 (0.9-1.2) 04/15/17 22:15 APTT 28.1 Seconds (25.6-37.1) 04/15/17 22:15 Assessment and Plan - Assessment and Plan (Free Text) Assessment: 76 year old male with history of Diabetes, Hypertension, abdominal abscess s/p right ileocecectomy with primary anastomosis September 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 Active treatment of anastomotic breakdown, 2.6x2.7cm abscess formation, and micro-perforation on CT A/P PO/IV contrast. Prior colonoscopy February 2017 showed four right-sided tubular adenomas, one rectal hyperplastic polyp, and intact anastomosis site. Plan: >surgery managing- right hemicolectomy Thursday >on Zosyn and Flagyl >supportive care: antiemetics, pain control >clear liquids as tolerated >will follow clinical course <Harrison Do - Last Filed: 04/19/17 10:06> Objective - Vital Signs/Intake and Output Vital Signs (last 24 hours): Temp Pulse Resp BP Pulse Ox 98.1 F 61 20 168/70 H 97 04/19/17 07:42 04/19/17 09:55 04/19/17 07:42 04/19/17 09:55 04/19/17 07:42 - Medications Medications: Current Medications Amlodipine Besylate (Norvasc) 5 mg PO DAILY [facility] Last Admin: 04/19/17 08:34 Dose: 5 mg Fenofibrate (Tricor) 145 mg PO DAILY [facility] [place] Last Admin: 04/19/17 08:35 Dose: 145 mg HCTZ/Losartan Potassium (Hyzaar 12.5 Mg-50 Mg) 1 tab PO DAILY [facility] Last Admin: 04/19/17 08:34 Dose: 1 tab Hydralazine HCl (Apresoline) 25 mg PO Q8H [facility] Last Admin: 04/19/17 08:33 Dose: 25 mg Metronidazole 250 mg/ (Miscellaneous) 50 mls @ 50 mls/hr IVPB Q8 [facility] [place] Last Admin: 04/19/17 08:32 Dose: 50 mls/hr Piperacillin Sod/Tazobactam (Sod 2.25 gm/ Sodium Chloride) 100 mls @ 100 mls/ hr IVPB Q8 [facility] [place] Last Admin: 04/19/17 09:49 Dose: 100 mls/hr Lactated Ringer's (Lactated Ringer's) 1,000 mls @ 125 mls/hr IV .Q8H [facility] Last Admin: 04/19/17 08:31 Dose: 125 mls/hr Insulin Human Lispro (Humalog) 0 units SC ACCU-CHECK [facility] PRN Reason: Protocol Last Admin: 04/19/17 07:08 Dose: Not Given Ketorolac Tromethamine (Toradol) 15 mg IVP Q6 PRN PRN Reason: Pain, moderate (4-7) Last Admin: 04/16/17 12:26 Dose: 15 mg Metoprolol Tartrate (Lopressor) 100 mg PO DAILY [facility] Last Admin: 04/19/17 08:34 Dose: 100 mg Morphine Sulfate (Morphine) 4 mg IVP Q6 PRN PRN Reason: Pain, severe (8-10) Last Admin: 04/17/17 05:01 Dose: 4 mg Ondansetron HCl (Zofran Inj) 4 mg IVP Q6 PRN PRN Reason: Nausea/Vomiting - Labs Labs: 04/19/17 05:30 04/19/17 05:30 PT 13.3 Seconds (9.8-13.1) H 04/15/17 22:15 INR 1.2 (0.9-1.2) 04/15/17 22:15 APTT 28.1 Seconds (25.6-37.1) 04/15/17 22:15 Attending/Attestation - Attestation I have personally seen and examined this patient.: Yes I have fully participated in the care of the patient.: Yes I have reviewed all pertinent clinical information, including history, physical exam and plan: Yes Notes (Text): 04/19/17 10:02 I have seen and examined patient with GI fellow. No acute events overnight, he is seen resting in bed appears quite comfortable. He complains of mild epigastric abdominal pain but otherwise denies nausea, vomiting, fever/chills. Tolerating PO liquids without difficulty. Review of vitals from today show elevated BP. DM / HTN History of sclerosing mucinous neoplasm s/p ileocecectomy complicated by development of abdominal abscess Abdominal pain, recurrent abdominal abscess, microperforation at anastomotic site - Liquid diet as tolerated - Continue with antibiotic therapy - Follow up surgical recommendations, patient planned for R hemicolectomy on thursday - will follow up pathology results - No further planned GI intervention, will sign off case. He will benefit from additional outpatient follow up after acute surgical issues have resolved. Please reconsult as necessary, thank you.
--- NOTE | 2017-04-19 12:35 | CP.PCM.CON ---
History of Present Illness - History of Present Illness History of Present Illness: THE PATIENT IS A 76 YEAR OLD MALE WHO HAS A HISTORY OF A RIGHT HEMICOLECTOMY IN SEPTEMBER 2016 FOR A MUCINOUS NEOPLASM AND IN DECEMBER 2016 HAD AN ABDOMINAL FLUID COLLECTION WITH TX WITH AN IR DRAIN AND IV ANTIBIOTICS. HE WAS NOW ADMITTED AGAIN AFTER TWO DAYS OF ABDOMINAL PAIN AND DECREASED APPETITE AND ON CT WAS FOUND TO HAVE AN ANASTOMATIC ABSCESS AND MICROPERFORATION AND HE IS NOW BEING TREATED WITH IV ANTIBIOTICS AND WILL HAVE SURGERY ON 04/21/17. CARDIOLOGY WAS ASKED TO SEE HIM. HE ALSO HAS A HISTORY OF HYPERTENSION, HYPERLIPIDEMIA AND TYPE 2 DM. HE DENIES ANY HISTORY OF CAD OR CHEST PAIN. Past Patient History - Infectious Disease Hx of Infectious Diseases: None - Past Medical History & Family History Past Medical History?: Yes - Past Social History Smoking Status: Never Smoked - CARDIAC Hx Hypercholesterolemia: Yes Hx Hypertension: Yes - PULMONARY Hx Asthma: Yes Hx Pneumonia: Yes - NEUROLOGICAL Hx Neurological Disorder: No - HEENT Hx HEENT Problems: No - RENAL Hx Chronic Kidney Disease: No - ENDOCRINE/METABOLIC Hx Hypothyroidism: Yes (WAS PLACED ON MEDS PT DONT KNOW WHY) - HEMATOLOGICAL/ONCOLOGICAL Hx Human Immunodeficiency Virus (HIV): No - INTEGUMENTARY Hx Dermatological Problems: No - MUSCULOSKELETAL/RHEUMATOLOGICAL Hx Musculoskeletal Disorders: No Hx Falls: No - GASTROINTESTINAL Hx Gastrointestinal Disorders: Yes Hx Bowel Surgery: Yes - GENITOURINARY/GYNECOLOGICAL Hx Genitourinary Disorders: No - PSYCHIATRIC Hx Psychophysiologic Disorder: No Hx Substance Use: No - SURGICAL HISTORY Hx Surgeries: Yes Other/Comment: Bowel Resection- 09/2016 - ANESTHESIA Hx Anesthesia: Yes Hx Anesthesia Reactions: No Hx Malignant Hyperthermia: No Meds Allergies/Adverse Reactions: Allergies Allergy/AdvReac Type Severity Reaction Status Date / Time No Known Allergies Allergy Verified 04/15/17 20:42 - Medications Medications: Current Medications Amlodipine Besylate (Norvasc) 5 mg PO DAILY [facility] Last Admin: 04/19/17 08:34 Dose: 5 mg Fenofibrate (Tricor) 145 mg PO DAILY [facility] Last Admin: 04/19/17 08:35 Dose: 145 mg HCTZ/Losartan Potassium (Hyzaar 12.5 Mg-50 Mg) 1 tab PO DAILY [facility] Last Admin: 04/19/17 08:34 Dose: 1 tab Hydralazine HCl (Apresoline) 25 mg PO Q8H [facility] Last Admin: 04/19/17 08:33 Dose: 25 mg Metronidazole 250 mg/ (Miscellaneous) 50 mls @ 50 mls/hr IVPB Q8 [facility] Last Admin: 04/19/17 08:32 Dose: 50 mls/hr Piperacillin Sod/Tazobactam (Sod 2.25 gm/ Sodium Chloride) 100 mls @ 100 mls/ hr IVPB Q8 [facility] Last Admin: 04/19/17 09:49 Dose: 100 mls/hr Lactated Ringer's (Lactated Ringer's) 1,000 mls @ 125 mls/hr IV .Q8H [facility] Last Admin: 04/19/17 08:31 Dose: 125 mls/hr Insulin Human Lispro (Humalog) 0 units SC ACCU-CHECK [facility] PRN Reason: Protocol Last Admin: 04/19/17 11:47 Dose: 2 units Ketorolac Tromethamine (Toradol) 15 mg IVP Q6 PRN PRN Reason: Pain, moderate (4-7) Last Admin: 04/16/17 12:26 Dose: 15 mg Metoprolol Tartrate (Lopressor) 100 mg PO DAILY [facility] Last Admin: 04/19/17 08:34 Dose: 100 mg Morphine Sulfate (Morphine) 4 mg IVP Q6 PRN PRN Reason: Pain, severe (8-10) Last Admin: 04/17/17 05:01 Dose: 4 mg Ondansetron HCl (Zofran Inj) 4 mg IVP Q6 PRN PRN Reason: Nausea/Vomiting Physical Exam - Respiratory Exam Respiratory Exam: Clear to Auscultation Bilateral - Cardiovascular Exam Cardiovascular Exam: REGULAR RHYTHM, +S1, +S2 - Extremities Exam Extremities exam: Positive for: normal inspection - Additional Findings Additional findings: EKG NSR CT SCAN REPORT NOTED Results - Vital Signs Recent Vital Signs: Last Vital Signs Temp 98.1 F 04/19/17 07:42 Pulse 61 04/19/17 09:55 Resp 20 04/19/17 07:42 BP 168/70 H 04/19/17 09:55 Pulse Ox 97 04/19/17 07:42 - Labs Result Diagrams: 04/19/17 05:30 04/19/17 05:30 Labs: Laboratory Results - last 24 hr 04/18/17 04/18/17 04/18/17 06:52 16:15 20:47 WBC RBC Hgb Hct MCV MCH MCHC RDW Plt Count Sodium Potassium Chloride Carbon Dioxide Anion Gap BUN Creatinine Est GFR ( Amer) Est GFR (Non-Af Amer) POC Glucose (mg/dL) 201 H 188 H 161 H Random Glucose Calcium 04/19/17 04/19/17 04/19/17 05:30 05:30 05:46 WBC 3.7 L RBC 3.55 L Hgb 10.0 L Hct 30.0 L MCV 84.4 MCH 28.3 MCHC 33.5 RDW 13.6 Plt Count 169 Sodium 140 Potassium 3.8 Chloride 103 Carbon Dioxide 31 H Anion Gap 10 BUN 8 L Creatinine 1.0 Est GFR ( Amer) > 60 Est GFR (Non-Af Amer) > 60 POC Glucose (mg/dL) 138 H Random Glucose 168 H Calcium 9.0 04/19/17 10:37 WBC RBC Hgb Hct MCV MCH MCHC RDW Plt Count Sodium Potassium Chloride Carbon Dioxide Anion Gap BUN Creatinine Est GFR ( Amer) Est GFR (Non-Af Amer) POC Glucose (mg/dL) 218 H Random Glucose Calcium Assessment & Plan - Assessment and Plan (Free Text) Assessment: RIGHT HEMICOLECTOMY FOR MUCINOUS NEOPLASM SEPTEMBER 2016 AND NOW WITH ANOSTOMATIC ABSCESS AND MICROPERFORATION HYPERTENSION HYPERLIPIDEMIA Plan: CONTINUE IV ANTIBIOTICS, METOPROLOL, HYDRALAZINE, LOSARTAN, AMLODIPINE AND FENOFIBRATE ECHOCARDIOGRAM ORDERED
--- NOTE | 2017-04-19 14:05 | CP.PCM.PN ---
Subjective - Date & Time of Evaluation Date of Evaluation: 04/19/17 Time of Evaluation: 14:03 - Subjective Subjective: Surgery for Dr. Rocha Pt s&e. LEX. Denies F/C/N/V/D/CP/SOB. Pain controlled. Objective - Vital Signs/Intake and Output Vital Signs (last 24 hours): Temp Pulse Resp BP Pulse Ox 98.1 F 61 20 168/70 H 97 04/19/17 07:42 04/19/17 09:55 04/19/17 07:42 04/19/17 09:55 04/19/17 07:42 - Medications Medications: Current Medications Amlodipine Besylate (Norvasc) 5 mg PO DAILY [facility] Last Admin: 04/19/17 08:34 Dose: 5 mg Fenofibrate (Tricor) 145 mg PO DAILY [facility] Last Admin: 04/19/17 08:35 Dose: 145 mg HCTZ/Losartan Potassium (Hyzaar 12.5 Mg-50 Mg) 1 tab PO DAILY [facility] Last Admin: 04/19/17 08:34 Dose: 1 tab Hydralazine HCl (Apresoline) 25 mg PO Q8H [facility] Last Admin: 04/19/17 08:33 Dose: 25 mg Metronidazole 250 mg/ (Miscellaneous) 50 mls @ 50 mls/hr IVPB Q8 [facility] Last Admin: 04/19/17 08:32 Dose: 50 mls/hr Piperacillin Sod/Tazobactam (Sod 2.25 gm/ Sodium Chloride) 100 mls @ 100 mls/ hr IVPB Q8 [facility] Last Admin: 04/19/17 09:49 Dose: 100 mls/hr Lactated Ringer's (Lactated Ringer's) 1,000 mls @ 125 mls/hr IV .Q8H [facility] Last Admin: 04/19/17 08:31 Dose: 125 mls/hr Insulin Human Lispro (Humalog) 0 units SC ACCU-CHECK [facility] PRN Reason: Protocol Last Admin: 04/19/17 11:47 Dose: 2 units Ketorolac Tromethamine (Toradol) 15 mg IVP Q6 PRN PRN Reason: Pain, moderate (4-7) Last Admin: 04/16/17 12:26 Dose: 15 mg Metoprolol Tartrate (Lopressor) 100 mg PO DAILY [facility] Last Admin: 04/19/17 08:34 Dose: 100 mg Morphine Sulfate (Morphine) 4 mg IVP Q6 PRN PRN Reason: Pain, severe (8-10) Last Admin: 04/17/17 05:01 Dose: 4 mg Ondansetron HCl (Zofran Inj) 4 mg IVP Q6 PRN PRN Reason: Nausea/Vomiting - Labs Labs: 04/19/17 05:30 04/19/17 05:30 PT 13.3 Seconds (9.8-13.1) H 04/15/17 22:15 INR 1.2 (0.9-1.2) 04/15/17 22:15 APTT 28.1 Seconds (25.6-37.1) 04/15/17 22:15 - Constitutional Appears: No Acute Distress - Head Exam Head Exam: ATRAUMATIC, NORMAL INSPECTION, NORMOCEPHALIC - Eye Exam Eye Exam: EOMI, Normal appearance, PERRL Pupil Exam: NORMAL ACCOMODATION, PERRL - ENT Exam ENT Exam: Mucous Membranes Moist, Normal Exam - Neck Exam Neck Exam: Full ROM, Normal Inspection. absent: Lymphadenopathy - Respiratory Exam Respiratory Exam: Clear to Ausculation Bilateral, NORMAL BREATHING PATTERN - Cardiovascular Exam Cardiovascular Exam: REGULAR RHYTHM, +S1, +S2. absent: Murmur - GI/Abdominal Exam GI & Abdominal Exam: Soft, Tenderness, Normal Bowel Sounds. absent: Distended, Firm, Guarding, Rigid - Exam Exam: NORMAL INSPECTION - Extremities Exam Extremities Exam: Full ROM, Normal Capillary Refill, Normal Inspection. absent : Joint Swelling, Pedal Edema - Back Exam Back Exam: NORMAL INSPECTION - Neurological Exam Neurological Exam: Alert, Awake, CN II-XII Intact, Normal Gait, Oriented x3 - Psychiatric Exam Psychiatric exam: Normal Affect, Normal Mood - Skin Skin Exam: Dry, Intact, Normal Color, Warm Assessment and Plan - Assessment and Plan (Free Text) Assessment: 76M s/p ileocectomy, now w. abd pain, concerns for anastomotic breakdown -c/w abx -c/w pain meds -will give pt CLD, do NOT advance diet -plan for OR on Thursday for R hemicolectomy -will d/w attending
[2017-04-20] MEDS: Lactated Ringer's 1,000 ML IV SCH ×2 (00:13→04:50)
[2017-04-20] MEDS: metroNIDAZOLE 500mg/100ml NS 250 MG in Premixed IV 1 EA IVPB SCH ×3 (00:13→17:59)
--- NOTE | 2017-04-20 02:18 | PN ---
DAILY PROGRESS NOTE DATE: 04/19/2017 SUBJECTIVE: He is not in any cardiopulmonary distress and abdominal pain recently the patient is tolerating diet. PHYSICAL EXAMINATION: VITAL SIGNS: Blood pressure is 148/63, temperature is 98.2, respiratory rate is 18, and pulse is 60. HEENT: Pupil equal and reactive to light. Normal-appearing mucosa of the conjunctivae, oropharynx, and nasal membrane mucosa. NECK: Supple. No JVD. No carotid bruit. No lymph node. No thyromegaly. CHEST AND LUNGS: Bilateral symmetrical expansion. Good air exchange. No rales. No rhonchi. CARDIOVASCULAR: PMI is not localized. S1 and S2. No additional sounds. ABDOMEN: Normoactive bowel sounds. No tenderness. No organomegaly. No masses. EXTREMITIES: No cyanosis. No clubbing. No edema. CENTRAL NERVOUS SYSTEM: Alert, awake, and oriented x3. No neurological deficit could be appreciated. ASSESSMENT: 1. Right lower quadrant intraabdominal inflammatory changes with possible microperforation at the site of surgical anastomosis. 2. Type 2 diabetes mellitus. 3. Hypertension. PLAN: We will continue current antibiotics and follow surgical recommendations. We will check also cardiac evaluation preoperatively. Shashi Thurston MD
[2017-04-20] MEDS: HCTZ/Losartan 12.5/50 Tab PO SCH (09:07)
[2017-04-20] MEDS: Insulin Lispro (humaLOG) 100 Units/ml Inj SC SCH ×4 (09:10→22:36)
--- NOTE | 2017-04-20 09:10 | HP ---
HISTORY OF PRESENT ILLNESS: This is a 76-year-old male with history of multiple medical problems, presented to the emergency room for symptoms of abdominal pain. The patient has history of mucinous cyst status post excision. He is being followed with Gastroenterology. The patient was evaluated in the emergency room and *------* abdomen and pelvis and the CAT scan showed *------* in the right lower quadrant with *------* right lower quadrant measuring 2.6 x 2.7 cm. There are surrounding *------* abscess and microperforation. There are *------* small bowel loops. The patient denies nausea or vomiting. The patient was started on IV antibiotics in the emergency room and the patient was admitted for further management. REVIEW OF SYSTEMS: Other review of system is negative. ALLERGIES: NO KNOWN ALLERGIES. PAST MEDICAL HISTORY: Positive for hypertension, type 2 diabetes mellitus, status post surgery for mucinous cyst. MEDICATIONS: Hydralazine 25 mg 3 times a day, amlodipine 5 mg daily, metoprolol 100 mg daily, metformin 1000 mg twice a day, losartan/hydrochlorothiazide 50/12.5 once a day, glipizide 10 mg *------* a day and TriCor 1 tablet daily. SOCIAL HISTORY: No history of smoking, ETOH or substance abuse. FAMILY HISTORY: Not contributory. PHYSICAL EXAMINATION GENERAL: The patient is in bed, comfortable at the time of his examination. VITAL SIGNS: Blood pressure 157/50, temperature *------*, respiratory rate 18 and pulse 57. HEENT: Pupils equal and reactive to light. Normal-appearing mucosa of the conjunctivae, oropharynx and nasal membrane mucosa. NECK: Supple. No JVD. No carotid bruit, no lymph node, no thyromegaly. CARDIOVASCULAR: PMI not localized. S1 and S2. No additional sounds.. CHEST AND LUNGS: Bilateral symmetrical expansion. Good air exchange. No rales, no rhonchi. ABDOMEN: Normoactive bowel sounds. Slight tenderness with the right lower quadrant. No organomegaly. No masses. EXTREMITIES: No cyanosis, no clubbing. No edema. PAPER SORTER: Alert, awake, and oriented x3. No neurological deficit could be appreciated. ASSESSMENT: Right lower quadrant intraabdominal inflammatory changes *------* anastomotic site leak with microperforation. PLAN: Continue on vancomycin *------* Zosyn and Flagyl. Thanks for the consultation and follow recommendations. *------*, adjusted to medication, *------*. [facility] MD Bertrand
--- NOTE | 2017-04-20 09:23 | CP.PCM.PN ---
Subjective - Date & Time of Evaluation Date of Evaluation: 04/20/17 Time of Evaluation: 08:40 - Subjective Subjective: NO CHEST PAIN OR SOB NO ABDOMINAL PAIN NOW Objective - Vital Signs/Intake and Output Vital Signs (last 24 hours): Temp Pulse Resp BP Pulse Ox 98.2 F 67 18 180/78 H 99 04/20/17 07:32 04/20/17 09:08 04/20/17 07:32 04/20/17 09:08 04/20/17 07:32 - Medications Medications: Current Medications Amlodipine Besylate (Norvasc) 5 mg PO DAILY [facility] Last Admin: 04/20/17 09:08 Dose: 5 mg Fenofibrate (Tricor) 145 mg PO DAILY [facility] Last Admin: 04/20/17 09:08 Dose: 145 mg HCTZ/Losartan Potassium (Hyzaar 12.5 Mg-50 Mg) 1 tab PO DAILY [facility] Last Admin: 04/20/17 09:07 Dose: 1 tab Hydralazine HCl (Apresoline) 25 mg PO Q8H [facility] Last Admin: 04/20/17 09:06 Dose: 25 mg Metronidazole 250 mg/ (Miscellaneous) 50 mls @ 50 mls/hr IVPB Q8 [facility] Last Admin: 04/20/17 09:09 Dose: 50 mls/hr Piperacillin Sod/Tazobactam (Sod 2.25 gm/ Sodium Chloride) 100 mls @ 100 mls/ hr IVPB Q8 [facility] Last Admin: 04/20/17 09:08 Dose: 100 mls/hr Lactated Ringer's (Lactated Ringer's) 1,000 mls @ 125 mls/hr IV .Q8H [facility] Last Admin: 04/20/17 04:50 Dose: 125 mls/hr Insulin Human Lispro (Humalog) 0 units SC ACCU-CHECK [facility] PRN Reason: Protocol Last Admin: 04/20/17 09:10 Dose: 1 units Ketorolac Tromethamine (Toradol) 15 mg IVP Q6 PRN PRN Reason: Pain, moderate (4-7) Last Admin: 04/16/17 12:26 Dose: 15 mg Metoprolol Tartrate (Lopressor) 100 mg PO DAILY [facility] Last Admin: 04/20/17 09:07 Dose: 100 mg Morphine Sulfate (Morphine) 4 mg IVP Q6 PRN PRN Reason: Pain, severe (8-10) Last Admin: 04/17/17 05:01 Dose: 4 mg Ondansetron HCl (Zofran Inj) 4 mg IVP Q6 PRN PRN Reason: Nausea/Vomiting - Labs Labs: 04/19/17 05:30 04/19/17 05:30 PT 13.3 Seconds (9.8-13.1) H 04/15/17 22:15 INR 1.2 (0.9-1.2) 04/15/17 22:15 APTT 28.1 Seconds (25.6-37.1) 04/15/17 22:15 - Respiratory Exam Respiratory Exam: Clear to Ausculation Bilateral - Cardiovascular Exam Cardiovascular Exam: REGULAR RHYTHM, +S1, +S2 - Extremities Exam Extremities Exam: Normal Inspection Assessment and Plan - Assessment and Plan (Free Text) Assessment: S/P PRIOR COLONIC SURGERY ANASTOMOTIC ABSCESS AND MICROPERFORATION HYPERTENSION HYPERLIPIDEMIA Plan: CONTINUE ANTIBIOTICS, LOSARTAN, APRESOLINE, AMLODIPINE, METOPROLOL AND FENOFIBRATE FOR ECHO TODAY FOR SURGERY TOMORROW
--- NOTE | 2017-04-20 09:48 | CP.PCM.PN ---
Subjective - Date & Time of Evaluation Date of Evaluation: 04/20/17 Time of Evaluation: 09:47 - Subjective Subjective: Surgery: Dr. Rocha Pt seen and examined. Resting comfortably in bed. Pain improved. Tolerating CLD. Objective - Vital Signs/Intake and Output Vital Signs (last 24 hours): Temp Pulse Resp BP Pulse Ox 98.2 F 67 18 180/78 H 99 04/20/17 07:32 04/20/17 09:08 04/20/17 07:32 04/20/17 09:08 04/20/17 07:32 - Medications Medications: Current Medications Amlodipine Besylate (Norvasc) 5 mg PO DAILY [facility] Last Admin: 04/20/17 09:08 Dose: 5 mg Fenofibrate (Tricor) 145 mg PO DAILY [facility] Last Admin: 04/20/17 09:08 Dose: 145 mg HCTZ/Losartan Potassium (Hyzaar 12.5 Mg-50 Mg) 1 tab PO DAILY [facility] Last Admin: 04/20/17 09:07 Dose: 1 tab Hydralazine HCl (Apresoline) 25 mg PO Q8H [facility] Last Admin: 04/20/17 09:06 Dose: 25 mg Metronidazole 250 mg/ (Miscellaneous) 50 mls @ 50 mls/hr IVPB Q8 [facility] Last Admin: 04/20/17 09:09 Dose: 50 mls/hr Piperacillin Sod/Tazobactam (Sod 2.25 gm/ Sodium Chloride) 100 mls @ 100 mls/ hr IVPB Q8 [facility] Last Admin: 04/20/17 09:08 Dose: 100 mls/hr Lactated Ringer's (Lactated Ringer's) 1,000 mls @ 125 mls/hr IV .Q8H [facility] Last Admin: 04/20/17 04:50 Dose: 125 mls/hr Insulin Human Lispro (Humalog) 0 units SC ACCU-CHECK [facility] PRN Reason: Protocol Last Admin: 04/20/17 09:10 Dose: 1 units Ketorolac Tromethamine (Toradol) 15 mg IVP Q6 PRN PRN Reason: Pain, moderate (4-7) Last Admin: 04/16/17 12:26 Dose: 15 mg Metoprolol Tartrate (Lopressor) 100 mg PO DAILY [facility] Last Admin: 04/20/17 09:07 Dose: 100 mg Morphine Sulfate (Morphine) 4 mg IVP Q6 PRN PRN Reason: Pain, severe (8-10) Last Admin: 04/17/17 05:01 Dose: 4 mg Ondansetron HCl (Zofran Inj) 4 mg IVP Q6 PRN PRN Reason: Nausea/Vomiting - Labs Labs: 04/19/17 05:30 04/19/17 05:30 PT 13.3 Seconds (9.8-13.1) H 04/15/17 22:15 INR 1.2 (0.9-1.2) 04/15/17 22:15 APTT 28.1 Seconds (25.6-37.1) 04/15/17 22:15 - Constitutional Appears: Non-toxic, No Acute Distress - Head Exam Head Exam: ATRAUMATIC, NORMOCEPHALIC - Eye Exam Eye Exam: EOMI - ENT Exam ENT Exam: Mucous Membranes Moist - Neck Exam Neck Exam: Full ROM - Respiratory Exam Respiratory Exam: NORMAL BREATHING PATTERN. absent: Accessory Muscle Use, Respiratory Distress - GI/Abdominal Exam GI & Abdominal Exam: Soft. absent: Distended, Firm, Guarding, Rigid, Tenderness , Rebound - Extremities Exam Extremities Exam: absent: Calf Tenderness, Pedal Edema - Neurological Exam Neurological Exam: Alert, Awake, Oriented x3 Assessment and Plan - Assessment and Plan (Free Text) Assessment: 76M s/p ileocectomy, now w. abd pain, concerns for anastomotic breakdown -c/w abx -c/w pain meds -OR tomorrow for R hemicolectomy -NPO at midnight -c/w current medical management -d/w attending Christopheritis PGY3
--- NOTE | 2017-04-20 10:58 | CARD ---
APPROVED REPORT EXAM: Two-dimensional and M-mode echocardiogram with Doppler and color Doppler. Other Information Quality : GoodRhythm : NSR INDICATION Pre-Op 2D DIMENSIONS IVSd0.91 (0.7-1.1cm)LVDd4.63 (3.9-5.9cm) LVOT Diameter1.71 (1.8-2.4cm)PWd0.94 (0.7-1.1cm) IVSs1.38 (0.8-1.2cm)LVDs3.33 (2.5-4.0cm) FS (%) 28.1 %PWs1.14 (0.8-1.2cm) M-Mode DIMENSIONS Left Atrium (MM)5.53 (2.5-4.0cm)IVSd1.00 (0.7-1.1cm) Aortic Root3.09 (2.2-3.7cm)LVDd5.53 (4.0-5.6cm) Aortic Cusp Exc.2.06 (1.5-2.0cm)PWd0.97 (0.7-1.1cm) IVSs1.28 cmFS (%) 35 % LVDs3.59 (2.0-3.8cm)PWs1.63 cm Mitral Valve MV E Dyqgolpm47.6cm/sMV DECEL [id number] A Xommocgs11.9cm/s MV ZNW02tmF/A ratio1.0MVA (PHT)3.74cm2 TDI Lateral E' Peak V9.45cm/sMedial E' Peak V11.08cm/sE/Lateral E'9.8 E/Medial E'8.4 Pulmonary Valve PV Peak Xkebkjug71.9cm/s Tricuspid Valve TR Peak Lzjagqnl082hm/sRAP CXVMSZKT90teIvBY Peak Gr.31mmHg [id number] LEFT VENTRICLE The left ventricle is normal size. There is normal left ventricular wall thickness. The left ventricular function is normal. The left ventricular ejection fraction is - 55-60%. There is normal LV segmental wall motion. Transmitral Doppler flow pattern is Grade I-abnormal relaxation pattern. No left ventricle thrombus noted on this study. There is no ventricular septal defect visualized. There is no left ventricular aneurysm. There is no mass noted in the left ventricle. RIGHT VENTRICLE The right ventricle is normal size. There is normal right ventricular wall thickness. The right ventricular systolic function is normal. ATRIA The left atrium is mildly dilated. There is no thrombus suspected in the left atrium. The right atrium size is normal. The interatrial septum is intact with no evidence for an atrial septal defect. AORTIC VALVE The aortic valve is normal in structure and function. There is very, very trivial aortic regurgitation. There is no aortic valvular stenosis. MITRAL VALVE The mitral valve is normal in structure and function. There is no evidence of mitral valve prolapse. There is no mitral valve stenosis. Mitral regurgitation is trace. TRICUSPID VALVE The tricuspid valve is normal in structure and function. There is trace tricuspid regurgitation. Right ventricular systolic pressure is estimated at 41 mmHg. There is no tricuspid valve prolapse or vegetation. There is no tricuspid valve stenosis. PULMONIC VALVE The pulmonary valve is normal in structure and function. There is no pulmonic valvular regurgitation. GREAT VESSELS The aortic root is normal in size. The IVC is normal in size and collapses >50% with inspiration. PERICARDIAL EFFUSION The pericardium appears normal. There is no pleural effusion. <Conclusion> The left ventricle is normal in size and wall thickness. The left ventricular function is normal. The left ventricular ejection fraction is - 55-60%. The left atrium is mildly enlarged. The mitral, aortic and tricuspid valves are normal. There is trace mitral regurgitation and trace tricuspid regurgitation.
[2017-04-20] MEDS ORDERED: HCTZ/Losartan 12.5/50 Tab PO SCH (18:30)
[2017-04-20] MEDS: Potassium Ch 20mEq in D5-1/2NS 1,000 ML IV SCH (23:19)
[2017-04-21] MEDS: metroNIDAZOLE 500mg/100ml NS 250 MG in Premixed IV 1 EA IVPB SCH ×3 (01:35→16:52)
[2017-04-21] MEDS ORDERED: HYDROmorphone 0.5 mg/0.5 ml ISec ONE (05:30)
[2017-04-21] MEDS: Potassium Ch 20mEq in D5-1/2NS 1,000 ML IV SCH ×3 (05:51→17:55)
[2017-04-21] MEDS: HCTZ/Losartan 12.5/50 Tab PO SCH ×2 (06:16→08:54)
[2017-04-21] MEDS: Insulin Lispro (humaLOG) 100 Units/ml Inj SC SCH ×4 (06:40→23:07)
[2017-04-21 07:44] LABS: MEAN CELL VOLUME 82.9 fl (80.0-94.0); MEAN CORPUSCULAR HEMOGLOBIN 28.3 pg (27.0-31.0); MEAN CORPUSCULAR HGB CONC 34.1 g/dL (33.0-37.0); RBC 3.89 Mil/uL (4.40-5.90); RED CELL DISTRIBUTION WIDTH 13.5 % (11.5-14.5); WHITE BLOOD COUNT 4.5 K/uL (4.8-10.8)
[2017-04-21 08:02] LABS: INR 1.2 (0.9-1.2); PARTIAL THROMBOPLASTIN TIME 27.8 Seconds (25.6-37.1); PROTHROMBIN TIME 13.8 Seconds (9.8-13.1)
[2017-04-21 08:11] LABS: BLOOD UREA NITROGEN 9 mg/dl (9-20); CALCIUM 9.1 mg/dL (8.4-10.2)
[2017-04-21 09:02] LABS: GFR AFRICAN-AMERICAN > 60; GFR NON-AFRICAN AMERICAN > 60
--- NOTE | 2017-04-21 09:19 | CP.PCM.PN ---
Subjective - Date & Time of Evaluation Date of Evaluation: 04/21/17 Time of Evaluation: 08:30 - Subjective Subjective: NO CHEST PAIN OR SOB Objective - Vital Signs/Intake and Output Vital Signs (last 24 hours): Temp Pulse Resp BP Pulse Ox 97.9 F 57 L 20 134/68 98 04/21/17 08:09 04/21/17 08:09 04/21/17 08:09 04/21/17 08:09 04/21/17 08:09 - Medications Medications: Current Medications Amlodipine Besylate (Norvasc) 5 mg PO DAILY [facility] Last Admin: 04/21/17 08:55 Dose: Not Given Fenofibrate (Tricor) 145 mg PO DAILY [facility] Last Admin: 04/21/17 08:55 Dose: Not Given HCTZ/Losartan Potassium (Hyzaar 12.5 Mg-50 Mg) 1 tab PO DAILY [facility] Last Admin: 04/21/17 08:54 Dose: Not Given HCTZ/Losartan Potassium (Hyzaar 12.5 Mg-50 Mg) 1 tab PO Stat [facility] Last Admin: 04/20/17 20:10 Dose: 1 tab Hydralazine HCl (Apresoline) 50 mg PO Q8H [facility] Last Admin: 04/21/17 06:19 Dose: 50 mg Metronidazole 250 mg/ (Miscellaneous) 50 mls @ 50 mls/hr IVPB Q8 [facility] Last Admin: 04/21/17 01:35 Dose: 50 mls/hr Potassium Chloride/Dextrose/Sod Cl (Potassium Chl 20 Meq In D5-1/2ns) 1,000 mls @ 125 mls/hr IV .Q8H [facility] Stop: 04/21/17 21:17 Last Admin: 04/21/17 05:51 Dose: Not Given Insulin Human Lispro (Humalog) 0 units SC ACCU-CHECK [facility] PRN Reason: Protocol Last Admin: 04/21/17 06:40 Dose: 3 units Metoprolol Tartrate (Lopressor) 100 mg PO DAILY [facility] Last Admin: 04/21/17 08:54 Dose: Not Given Ondansetron HCl (Zofran Inj) 4 mg IVP Q6 PRN PRN Reason: Nausea/Vomiting - Labs Labs: 04/21/17 05:30 04/21/17 05:30 PT 13.8 Seconds (9.8-13.1) H 04/21/17 05:30 INR 1.2 (0.9-1.2) 04/21/17 05:30 APTT 27.8 Seconds (25.6-37.1) 04/21/17 05:30 - Respiratory Exam Respiratory Exam: Clear to Ausculation Bilateral - Cardiovascular Exam Cardiovascular Exam: REGULAR RHYTHM, +S1, +S2 - Extremities Exam Extremities Exam: Normal Inspection - Additional Findings Additional findings: ECHOCARDIOGRAM WITH GOOD LV FUNCTION Assessment and Plan - Assessment and Plan (Free Text) Assessment: HYPERTENSION HYPERLIPIDEMIA SURGICAL ANASTAMOSIS SITE ABSCESS AND MICROPERFORATION Plan: CONTINUE HYZAAR, METOPROLOL, AMLODIPINE, APRESOLINE, FENOFIBRATE AND ANTIBIOTICS THE PATIENT IS CLEARED FOR SURGERY FROM THE CARDIAC VIEWPOINT
[2017-04-21] MEDS ORDERED: Succinylcholine 200 mg/10 ml Inj IV ONE (09:57)
[2017-04-21] MEDS ORDERED: Lidocaine Hydrochloride 5 ML INJ ONE (09:57)
[2017-04-21] MEDS ORDERED: Phenylephrine 10 mg/ml Inj ONE (09:57)
[2017-04-21] MEDS ORDERED: Etomidate 20 mg/10ml Inj IV ONE (09:57)
[2017-04-21] MEDS ORDERED: Rocuronium 10 mg/ml (5 ml) ONE (09:58)
[2017-04-21] MEDS ORDERED: Ropivacaine 0.5% 30ML IV ONE (11:03)
[2017-04-21] MEDS ORDERED: Lidocaine 2% Jelly (Uro-Jet) ONE (11:03)
[2017-04-21] MEDS ORDERED: Labetalol 5mg/ml (4ml) ONE (11:30)
[2017-04-21] MEDS ORDERED: Dexamethasone 4 mg/1 ml ONE (11:37)
[2017-04-21] MEDS ORDERED: Neostigmine Methylsulfate 2 MG/2 ML ML IV ONE (11:57)
[2017-04-21] MEDS ORDERED: Lactated Ringer's 1,000 ML IV ONE ×2 (12:20→12:54)
[2017-04-21] MEDS ORDERED: Propofol 10 mg/ml Inj (20 ML) ONE (12:36)
--- NOTE | 2017-04-21 12:58 | PCM.SURG1 ---
Surgeon's Initial Post Op Note - Surgeon's Notes Surgeon: Josefina Captain/Check Airman: aMrio PGY3, Damian PGY3 Type of Anesthesia: General Endo, Local Pre-Operative Diagnosis: Anastomotic breakdown Operative Findings: Right colon mass Post-Operative Diagnosis: Right colon mass Operation Performed: exploratory laparotomy w. right hemicolectomy Specimen/Specimens Removed: right colon Estimated Blood Loss: EBL {In ML}: 100 Blood Products Given: N/A Drains Used: No Drains Post-Op Condition: Good Date of Surgery/Procedure: 04/21/17 Time of Surgery/Procedure: 12:58
[2017-04-21] MEDS ORDERED: Oxycodone/Acetaminophen 5/325 mg Tab PO PRN (13:01)
--- NOTE | 2017-04-21 13:06 | PCM.ANESB5 ---
Transverse Abdominis Block - Transverse Abdominis Plane Date of Procedure: 04/21/17 Anesthesiologist: tamica Pre-Procedure Diagnosis: Colon anastamosis breakdown Post-Procedure Diagnosis: save Procedure Performed: Transverse Abdominis Plane Nerve Block Left, Transverse Abdominis Plane Nerve Block Right - Procedure Transverse Abdominis Plane Nerve Block: The procedure was explained to the patient that it is for post-operative pain management and would be performed after surgery. Consent was obtained prior to surgery after a thorough discussion with the patient regarding the benefits and possible complications of transverse abdominis plane block. After the surgery had concluded and before the patient emerged from general anesthesia, time-out was held with the circulating nurse to re-confirm the appropriate block. With the patient in supine position, the ultrasound probe was placed transverse to the abdominal wall at the mid-axillary line above the iliac crest of the appropriate side. The skin, subcutaneous tissue, fat, external oblique muscle, internal oblique muscle, and the transverse abdominis muscle were identified. The general area of the block site was then prepped with Betadine three times. At this point, a # 21-gauge Stimuplex 4-inch needle was inserted posterior to and in plane with the ultrasound probe and directed anteriorly. Needle was advanced under direct ultrasound visualization until it reached the plane between the internal oblique and transverse abdominis muscles. After appropriate placement, 2mL of local anesthetic solution was injected. When the transverse abdominis plane was observed expanding in an ellipsoid way, the rest of the solution was slowly injected. A total of __30____ mL of __0.25___ % __ ropivicaine was used for this block. The needle was then removed and sterile dressing was applied. Similarly, the same procedure was performed on the other side using the same medications. The patient had stable vital signs throughout and had no untoward complications after emergence from general anesthesia in the recovery room.
[2017-04-21] MEDS: HYDROmorphone 0.5 mg/0.5 ml ISec IVP PRN ×3 (13:10→14:10)
--- NOTE | 2017-04-21 17:29 | PN ---
DAILY PROGRESS NOTE DATE: 04/20/2017. SUBJECTIVE: The patient is seen today. He is not in any cardiopulmonary distress. . PHYSICAL EXAMINATION VITAL SIGNS: Blood pressure 148/60, temperature 98, respiratory rate 18, pulse 58. HEENT: Pupils equal, reactive to light. Normal-appearing mucosa. NECK: Supple. No JVD. No carotid bruit. No lymph node. No thyromegaly. CHEST AND LUNGS: Bilateral symmetrical expansion. Good air exchange. No rales. No rhonchi. CARDIOVASCULAR SYSTEM: PMI not localized. S1 and S2. No additional sounds. ABDOMEN: Normoactive bowel sounds. Decreased tenderness of the right lower extremities. No organomegaly. No masses. EXTREMITIES: No cyanosis, clubbing or edema. CENTRAL NERVOUS SYSTEM: Alert, awake, and oriented x3. No neurological deficits could be appreciated. ASSESSMENT AND PLAN: Right lower quadrant postsurgical inflammation with microperforation status post excision of the . PLAN: The patient by cardiology for having tomorrow morning hypertension medication. Shashi Thurston MD
[2017-04-21] MEDS: Lactated Ringer's 1,000 ML IV SCH (23:30)
[2017-04-22] MEDS: metroNIDAZOLE 500mg/100ml NS 250 MG in Premixed IV 1 EA IVPB SCH ×3 (00:20→17:53)
[2017-04-22 07:28] LABS: HEMOGLOBIN 9.7 g/dL (12.0-18.0); MEAN CELL VOLUME 84.1 fl (80.0-94.0); MEAN CORPUSCULAR HEMOGLOBIN 27.6 pg (27.0-31.0); MEAN CORPUSCULAR HGB CONC 32.8 g/dL (33.0-37.0); RBC 3.53 Mil/uL (4.40-5.90); RED CELL DISTRIBUTION WIDTH 13.6 % (11.5-14.5); WHITE BLOOD COUNT 11.6 K/uL (4.8-10.8)
[2017-04-22 07:49] LABS: BLOOD UREA NITROGEN 21 mg/dl (9-20); CALCIUM 8.5 mg/dL (8.4-10.2); GFR AFRICAN-AMERICAN > 60; GFR NON-AFRICAN AMERICAN > 60
[2017-04-22] MEDS: Insulin Lispro (humaLOG) 100 Units/ml Inj SC SCH ×4 (09:19→22:04)
[2017-04-22] MEDS: HCTZ/Losartan 12.5/50 Tab PO SCH (09:21)
--- NOTE | 2017-04-22 09:48 | CP.PCM.PN ---
Subjective - Date & Time of Evaluation Date of Evaluation: 04/22/17 Time of Evaluation: 08:30 - Subjective Subjective: NO CHEST PAIN OR SOB Objective - Vital Signs/Intake and Output Vital Signs (last 24 hours): Temp Pulse Resp BP Pulse Ox 98.2 F 71 20 174/66 H 93 L 04/22/17 07:48 04/22/17 09:20 04/22/17 07:48 04/22/17 09:20 04/22/17 07:48 - Medications Medications: Current Medications Amlodipine Besylate (Norvasc) 5 mg PO DAILY [facility] Last Admin: 04/22/17 09:20 Dose: 5 mg Fenofibrate (Tricor) 145 mg PO DAILY [facility] Last Admin: 04/22/17 09:21 Dose: 145 mg HCTZ/Losartan Potassium (Hyzaar 12.5 Mg-50 Mg) 1 tab PO DAILY [facility] Last Admin: 04/22/17 09:21 Dose: 1 tab Heparin Sodium (Porcine) (Heparin) 5,000 units SC Q12 [facility] PRN Reason: Protocol Hydralazine HCl (Apresoline) 50 mg PO Q8H [facility] Last Admin: 04/22/17 05:58 Dose: 50 mg Hydromorphone HCl (Dilaudid) 0.5 mg IVP Q4 PRN PRN Reason: Pain, severe (8-10) Metronidazole 250 mg/ (Miscellaneous) 50 mls @ 50 mls/hr IVPB Q8 [facility] Last Admin: 04/22/17 09:17 Dose: 50 mls/hr Piperacillin Sod/Tazobactam (Sod 2.25 gm/ Sodium Chloride) 100 mls @ 100 mls/ hr IVPB Q8 [facility] Last Admin: 04/22/17 02:20 Dose: 100 mls/hr Lactated Ringer's (Lactated Ringer's) 1,000 mls @ 100 mls/hr IV .Q10H [facility] Last Admin: 04/21/17 23:30 Dose: 100 mls/hr Insulin Human Lispro (Humalog) 0 units SC ACCU-CHECK [facility] PRN Reason: Protocol Last Admin: 04/22/17 09:19 Dose: 4 units Metoprolol Tartrate (Lopressor) 100 mg PO DAILY [facility] Last Admin: 04/22/17 09:19 Dose: 100 mg Ondansetron HCl (Zofran Inj) 4 mg IVP Q6 PRN PRN Reason: Nausea/Vomiting Oxycodone/Acetaminophen (Percocet 5/325 Mg Tab) 1 tab PO Q4 PRN PRN Reason: Pain, moderate (4-7) Stop: 04/24/17 13:02 - Labs Labs: 04/22/17 05:40 04/22/17 05:40 PT 13.8 Seconds (9.8-13.1) H 04/21/17 05:30 INR 1.2 (0.9-1.2) 04/21/17 05:30 APTT 27.8 Seconds (25.6-37.1) 04/21/17 05:30 - Respiratory Exam Respiratory Exam: Clear to Ausculation Bilateral - Cardiovascular Exam Cardiovascular Exam: REGULAR RHYTHM, +S1, +S2 - Extremities Exam Extremities Exam: Normal Inspection - Additional Findings Additional findings: OPERATIVE REPORT REVIEWED WITH FINDINGS OF RIGHT COLON MASS AND RIGHT HEMICOLECTOMY DONE Assessment and Plan - Assessment and Plan (Free Text) Assessment: S/P RIGHT HEMICOLECTOMY FOR COLON MASS HYPERTENSION Plan: PATIENT ON LIQUID DIET PER SURGERY PT RECEIVING BLOOD PRESSURE MEDICATIONS AND BP WILL BE OBSERVED
--- NOTE | 2017-04-22 10:42 | CP.PCM.PN ---
Subjective - Date & Time of Evaluation Date of Evaluation: 04/22/17 Time of Evaluation: 10:39 - Subjective Subjective: Surgery: Dr. Rocha Pt seen and examined. Resting comfortably in bed. Pain controlled. No N/V overnight. No F/C. No flatus/BM. Objective - Vital Signs/Intake and Output Vital Signs (last 24 hours): Temp Pulse Resp BP Pulse Ox 98.2 F 71 20 174/66 H 93 L 04/22/17 07:48 04/22/17 09:20 04/22/17 07:48 04/22/17 09:20 04/22/17 07:48 - Medications Medications: Current Medications Amlodipine Besylate (Norvasc) 5 mg PO DAILY [facility] Last Admin: 04/22/17 09:20 Dose: 5 mg Fenofibrate (Tricor) 145 mg PO DAILY [facility] Last Admin: 04/22/17 09:21 Dose: 145 mg HCTZ/Losartan Potassium (Hyzaar 12.5 Mg-50 Mg) 1 tab PO DAILY [facility] Last Admin: 04/22/17 09:21 Dose: 1 tab Heparin Sodium (Porcine) (Heparin) 5,000 units SC Q12 [facility] PRN Reason: Protocol Hydralazine HCl (Apresoline) 50 mg PO Q8H [facility] Last Admin: 04/22/17 05:58 Dose: 50 mg Hydromorphone HCl (Dilaudid) 0.5 mg IVP Q4 PRN PRN Reason: Pain, severe (8-10) Metronidazole 250 mg/ (Miscellaneous) 50 mls @ 50 mls/hr IVPB Q8 [facility] Last Admin: 04/22/17 09:17 Dose: 50 mls/hr Piperacillin Sod/Tazobactam (Sod 2.25 gm/ Sodium Chloride) 100 mls @ 100 mls/ hr IVPB Q8 [facility] Last Admin: 04/22/17 10:15 Dose: 100 mls/hr Lactated Ringer's (Lactated Ringer's) 1,000 mls @ 100 mls/hr IV .Q10H [facility] Last Admin: 04/21/17 23:30 Dose: 100 mls/hr Insulin Human Lispro (Humalog) 0 units SC ACCU-CHECK [facility] PRN Reason: Protocol Last Admin: 04/22/17 09:19 Dose: 4 units Metoprolol Tartrate (Lopressor) 100 mg PO DAILY [facility] Last Admin: 04/22/17 09:19 Dose: 100 mg Ondansetron HCl (Zofran Inj) 4 mg IVP Q6 PRN PRN Reason: Nausea/Vomiting Oxycodone/Acetaminophen (Percocet 5/325 Mg Tab) 1 tab PO Q4 PRN PRN Reason: Pain, moderate (4-7) Stop: 04/24/17 13:02 - Labs Labs: 04/22/17 05:40 04/22/17 05:40 PT 13.8 Seconds (9.8-13.1) H 04/21/17 05:30 INR 1.2 (0.9-1.2) 04/21/17 05:30 APTT 27.8 Seconds (25.6-37.1) 04/21/17 05:30 - Constitutional Appears: Non-toxic, No Acute Distress - Head Exam Head Exam: ATRAUMATIC, NORMOCEPHALIC - Eye Exam Eye Exam: EOMI - ENT Exam ENT Exam: Mucous Membranes Moist - Neck Exam Neck Exam: Full ROM - Respiratory Exam Respiratory Exam: NORMAL BREATHING PATTERN. absent: Accessory Muscle Use, Respiratory Distress - GI/Abdominal Exam GI & Abdominal Exam: Soft. absent: Distended, Firm, Guarding, Rigid, Tenderness , Rebound Additional comments: incision C/D/I - Extremities Exam Extremities Exam: absent: Calf Tenderness, Pedal Edema - Neurological Exam Neurological Exam: Alert, Awake, Oriented x3 Assessment and Plan - Assessment and Plan (Free Text) Assessment: 76M w. R colon mass, s/p R colectomy w. primary anastomosis, POD#1 -Will start CLD, monitor bowel fxn, ADAT -Will start heparin -D/C [place] -PT, OOB -will defer glucose management to medicine -d/w attending Mario PGY3
[2017-04-22] MEDS: HYDROmorphone 0.5 mg/0.5 ml ISec IVP PRN ×2 (13:02→19:01)
[2017-04-22] MEDS: Lactated Ringer's 1,000 ML IV SCH ×2 (16:33→22:12)
[2017-04-23] MEDS: metroNIDAZOLE 500mg/100ml NS 250 MG in Premixed IV 1 EA IVPB SCH ×3 (00:37→17:49)
[2017-04-23] MEDS: HYDROmorphone 0.5 mg/0.5 ml ISec IVP PRN ×6 (00:41→22:51)
--- NOTE | 2017-04-23 03:28 | PN ---
DATE: 04/22/2017 SUBJECTIVE: The patient is seen today, 04/22/2017, and he is postoperative day #1. PHYSICAL EXAMINATION: VITAL SIGNS: Blood pressure is 150/65, temperature 98.2, respiratory rate 20 and pulse 66. HEENT: Pupils equal, reactive to light. Normal appearing mucosa of the conjunctivae, oropharyngeal, and nasal membrane mucosa. NECK: Supple. No JVD. No carotid bruit. No lymph nodes. No thyromegaly. CHEST AND LUNGS: Bilateral symmetrical expansion. Good air exchange. No rales. No rhonchi. CARDIOVASCULAR SYSTEM: PMI not localized. S1 and S2. No additional sounds. ABDOMEN: Surgically dressed, and there is slight tenderness at the surgical wound site. EXTREMITIES: No cyanosis, no clubbing, no edema. 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 No neurological deficit could be appreciated. ASSESSMENT: 1. Postoperative day # 1 status post right hemicolectomy. 2. Type 2 diabetes mellitus. 3. Hypertension. PLAN: Follow up surgical recommendation regarding postoperative course and continue current medications. Shashi Thurston MD
[2017-04-23] MEDS: Lactated Ringer's 1,000 ML IV SCH (05:21)
[2017-04-23] MEDS: Insulin Lispro (humaLOG) 100 Units/ml Inj SC SCH ×4 (08:49→22:58)
[2017-04-23] MEDS: HCTZ/Losartan 12.5/50 Tab PO SCH (08:51)
[2017-04-23] MEDS ORDERED: Oxycodone/Acetaminophen 5/325 mg Tab PO PRN (09:33)
--- NOTE | 2017-04-23 09:33 | CP.PCM.PN ---
Subjective - Date & Time of Evaluation Date of Evaluation: 04/23/17 Time of Evaluation: 08:40 - Subjective Subjective: NO CHEST PAIN OR SOB HAS SURGICAL SITE PAIN Objective - Vital Signs/Intake and Output Vital Signs (last 24 hours): Temp Pulse Resp BP Pulse Ox 97.9 F 78 20 172/63 H 94 L 04/23/17 08:35 04/23/17 08:52 04/23/17 08:35 04/23/17 08:52 04/23/17 08:35 - Medications Medications: Current Medications Amlodipine Besylate (Norvasc) 5 mg PO DAILY [facility] Last Admin: 04/23/17 08:52 Dose: 5 mg Fenofibrate (Tricor) 145 mg PO DAILY [facility] Last Admin: 04/23/17 08:52 Dose: 145 mg HCTZ/Losartan Potassium (Hyzaar 12.5 Mg-50 Mg) 1 tab PO DAILY [facility] Last Admin: 04/23/17 08:51 Dose: 1 tab Heparin Sodium (Porcine) (Heparin) 5,000 units SC Q12 [facility] PRN Reason: Protocol Last Admin: 04/23/17 08:48 Dose: 5,000 units Hydralazine HCl (Apresoline) 50 mg PO Q8H [facility] Last Admin: 04/23/17 05:05 Dose: 50 mg Hydromorphone HCl (Dilaudid) 0.5 mg IVP Q4 PRN PRN Reason: Pain, severe (8-10) Last Admin: 04/23/17 08:42 Dose: 0.5 mg Metronidazole 250 mg/ (Miscellaneous) 50 mls @ 50 mls/hr IVPB Q8 [facility] Last Admin: 04/23/17 08:47 Dose: 50 mls/hr Piperacillin Sod/Tazobactam (Sod 2.25 gm/ Sodium Chloride) 100 mls @ 100 mls/ hr IVPB Q8 [facility] Last Admin: 04/23/17 08:53 Dose: 100 mls/hr Lactated Ringer's (Lactated Ringer's) 1,000 mls @ 100 mls/hr IV .Q10H [facility] Last Admin: 04/23/17 05:21 Dose: Not Given Insulin Human Lispro (Humalog) 0 units SC ACCU-CHECK [facility] PRN Reason: Protocol Last Admin: 04/23/17 08:49 Dose: 4 u Metoprolol Tartrate (Lopressor) 100 mg PO DAILY [facility] Last Admin: 04/23/17 08:52 Dose: 100 mg Ondansetron HCl (Zofran Inj) 4 mg IVP Q6 PRN PRN Reason: Nausea/Vomiting Oxycodone/Acetaminophen (Percocet 5/325 Mg Tab) 1 tab PO Q4 PRN PRN Reason: Pain, moderate (4-7) Stop: 04/24/17 13:02 - Labs Labs: 04/22/17 05:40 04/22/17 05:40 PT 13.8 Seconds (9.8-13.1) H 04/21/17 05:30 INR 1.2 (0.9-1.2) 04/21/17 05:30 APTT 27.8 Seconds (25.6-37.1) 04/21/17 05:30 - Respiratory Exam Respiratory Exam: Clear to Ausculation Bilateral - Cardiovascular Exam Cardiovascular Exam: REGULAR RHYTHM, +S1, +S2 - Extremities Exam Extremities Exam: Normal Inspection Assessment and Plan - Assessment and Plan (Free Text) Assessment: RIGHT HEMICOLECTOMY AND TUMOR REMOVAL 04/21/17 HYPERTENSION HYPERLIPIDEMIA Plan: CONTINUE HYDRALAZINE, HYZAAR, AMLODIPINE, METOPROLOL, FENOFIBRATE, HEPARIN, IV FLUIDS AND PAIN MEDS
[2017-04-23 09:55] LABS: BASO % 0.2 % (0.0-2.0); EOS % 0.5 % (0.0-4.0); HEMOGLOBIN 10.3 g/dL (12.0-18.0); LYMPH # 0.8 K/uL (1.0-4.3); LYMPH % 10.1 % (20.0-40.0); MEAN CELL VOLUME 83.2 fl (80.0-94.0); MEAN CORPUSCULAR HEMOGLOBIN 28.1 pg (27.0-31.0); MEAN CORPUSCULAR HGB CONC 33.8 g/dL (33.0-37.0); MEAN PLATELET VOLUME 8.9 fl (7.2-11.7); MONO # 0.3 K/uL (0.0-0.8); MONO % 3.7 % (0.0-10.0); NEUT # 6.5 K/uL (1.8-7.0); NEUT % 85.5 % (50.0-75.0); RBC 3.66 Mil/uL (4.40-5.90); RED CELL DISTRIBUTION WIDTH 13.5 % (11.5-14.5); WHITE BLOOD COUNT 7.6 K/uL (4.8-10.8)
[2017-04-23 10:08] LABS: ALB/GLOB RATIO 1.1 (1.0-2.1); ALBUMIN 3.7 g/dL (3.5-5.0); ALT/SGPT 32 U/L (21-72); AST/SGOT 25 U/L (17-59); BLOOD UREA NITROGEN 18 mg/dl (9-20); CALCIUM 8.5 mg/dL (8.4-10.2); GFR AFRICAN-AMERICAN > 60; GFR NON-AFRICAN AMERICAN > 60
--- NOTE | 2017-04-23 12:20 | CP.PCM.PN ---
Subjective - Date & Time of Evaluation Date of Evaluation: 04/23/17 Time of Evaluation: 08:00 - Subjective Subjective: GENERAL SURGERY PROGRESS NOTE FOR DR. WU Patient seen and examined at bedside. He reports mild pain at surgical site. He ambulated yesterday with PT and was seen ambulating in the halls numerous times. He is using his IS as well. He is tolerating CLD and denies nausea or vomiting. He has not passed flatus or had a BM yet since surgery. Objective - Vital Signs/Intake and Output Vital Signs (last 24 hours): Temp Pulse Resp BP Pulse Ox 97.9 F 78 20 172/63 H 94 L 04/23/17 08:35 04/23/17 08:52 04/23/17 08:35 04/23/17 08:52 04/23/17 08:35 - Medications Medications: Current Medications Amlodipine Besylate (Norvasc) 5 mg PO DAILY [facility] Last Admin: 04/23/17 08:52 Dose: 5 mg Fenofibrate (Tricor) 145 mg PO DAILY [facility] Last Admin: 04/23/17 08:52 Dose: 145 mg HCTZ/Losartan Potassium (Hyzaar 12.5 Mg-50 Mg) 1 tab PO DAILY [facility] Last Admin: 04/23/17 08:51 Dose: 1 tab Heparin Sodium (Porcine) (Heparin) 5,000 units SC Q12 [facility] PRN Reason: Protocol Last Admin: 04/23/17 08:48 Dose: 5,000 units Hydralazine HCl (Apresoline) 50 mg PO Q8H [facility] Last Admin: 04/23/17 05:05 Dose: 50 mg Hydromorphone HCl (Dilaudid) 1 mg IVP Q4 PRN PRN Reason: Pain, severe (8-10) Metronidazole 250 mg/ (Miscellaneous) 50 mls @ 50 mls/hr IVPB Q8 [facility] Last Admin: 04/23/17 08:47 Dose: 50 mls/hr Piperacillin Sod/Tazobactam (Sod 2.25 gm/ Sodium Chloride) 100 mls @ 100 mls/ hr IVPB Q8 [facility] Last Admin: 04/23/17 08:53 Dose: 100 mls/hr Lactated Ringer's (Lactated Ringer's) 1,000 mls @ 100 mls/hr IV .Q10H [facility] Last Admin: 04/23/17 05:21 Dose: Not Given Insulin Human Lispro (Humalog) 0 units SC ACCU-CHECK [facility]Z PRN Reason: Protocol Last Admin: 04/23/17 08:49 Dose: 4 u Metoprolol Tartrate (Lopressor) 100 mg PO DAILY [facility] Last Admin: 04/23/17 08:52 Dose: 100 mg Ondansetron HCl (Zofran Inj) 4 mg IVP Q6 PRN PRN Reason: Nausea/Vomiting Oxycodone/Acetaminophen (Percocet 5/325 Mg Tab) 1 tab PO Q4 PRN PRN Reason: Pain, Mild (1-3) Stop: 04/24/17 13:02 Oxycodone/Acetaminophen (Percocet 5/325 Mg Tab) 2 tab PO Q4 PRN PRN Reason: Pain, moderate (4-7) Stop: 04/26/17 09:34 - Labs Labs: 04/23/17 09:45 04/23/17 09:45 PT 13.8 Seconds (9.8-13.1) H 04/21/17 05:30 INR 1.2 (0.9-1.2) 04/21/17 05:30 APTT 27.8 Seconds (25.6-37.1) 04/21/17 05:30 - Constitutional Appears: Non-toxic, No Acute Distress - Head Exam Head Exam: ATRAUMATIC, NORMAL INSPECTION - Eye Exam Eye Exam: EOMI, Normal appearance - Respiratory Exam Respiratory Exam: NORMAL BREATHING PATTERN. absent: Respiratory Distress - Cardiovascular Exam Cardiovascular Exam: +S1, +S2 - GI/Abdominal Exam GI & Abdominal Exam: Distended (mild), Soft, Tenderness (mild tenderness around incision). absent: Firm, Guarding, Rigid Additional comments: Dressing removed, annie in place over midline incision - Neurological Exam Neurological Exam: Alert, Awake, Oriented x3 - Psychiatric Exam Psychiatric exam: Normal Affect, Normal Mood - Skin Skin Exam: Dry, Normal Color, Warm Assessment and Plan - Assessment and Plan (Free Text) Assessment: 76yo M with Right colon mass s/p Right colectomy with primary anastomosis POD#2 - Afebrile, VSS - WBC returned to normal - H&H stable - Ambulating with PT and on own in the halls - Using IS - Tolerating CLD - Awaiting return of bowel function - Discussed plan with Dr. Josefina Salgado PGY-3
[2017-04-23] MEDS: Insulin Detemir 100 Units/ml Inj SC SCH (18:08)
[2017-04-24] MEDS: metroNIDAZOLE 500mg/100ml NS 250 MG in Premixed IV 1 EA IVPB SCH ×3 (00:31→16:26)
[2017-04-24] MEDS: Lactated Ringer's 1,000 ML IV SCH ×3 (01:00→22:24)
[2017-04-24] MEDS: Insulin Detemir 100 Units/ml Inj SC SCH ×2 (06:40→16:44)
[2017-04-24 07:02] LABS: BLOOD UREA NITROGEN 14 mg/dl (9-20); CALCIUM 8.6 mg/dL (8.4-10.2); GFR AFRICAN-AMERICAN > 60; GFR NON-AFRICAN AMERICAN > 60
[2017-04-24 07:04] LABS: BASO % 0.2 % (0.0-2.0); EOS # 0.1 K/uL (0.0-0.7); EOS % 1.6 % (0.0-4.0); HEMOGLOBIN 10.5 g/dL (12.0-18.0); LYMPH # 1.4 K/uL (1.0-4.3); LYMPH % 22.1 % (20.0-40.0); MEAN CELL VOLUME 82.9 fl (80.0-94.0); MEAN CORPUSCULAR HEMOGLOBIN 27.8 pg (27.0-31.0); MEAN CORPUSCULAR HGB CONC 33.5 g/dL (33.0-37.0); MEAN PLATELET VOLUME 9.7 fl (7.2-11.7); MONO # 0.3 K/uL (0.0-0.8); MONO % 5.3 % (0.0-10.0); NEUT # 4.4 K/uL (1.8-7.0); NEUT % 70.8 % (50.0-75.0); RBC 3.77 Mil/uL (4.40-5.90); RED CELL DISTRIBUTION WIDTH 13.8 % (11.5-14.5); WHITE BLOOD COUNT 6.3 K/uL (4.8-10.8)
--- NOTE | 2017-04-24 07:34 | CP.PCM.PN ---
Subjective - Date & Time of Evaluation Date of Evaluation: 04/24/17 Time of Evaluation: 07:32 - Subjective Subjective: Surgery: Josefina Pt seem and examined. Resting comfortably in bed. Pain controlled. Tolerating CLD. No N/V. No Flatus/BM. Ambulating w. out difficulty. Objective - Vital Signs/Intake and Output Vital Signs (last 24 hours): Temp Pulse Resp BP Pulse Ox 99.3 F 78 20 180/77 H 96 04/24/17 00:49 04/24/17 06:23 04/24/17 00:49 04/24/17 06:23 04/24/17 00:49 - Medications Medications: Current Medications Amlodipine Besylate (Norvasc) 5 mg PO DAILY [facility] Last Admin: 04/23/17 08:52 Dose: 5 mg Docusate Sodium (Colace) 100 mg PO TID [facility] Fenofibrate (Tricor) 145 mg PO DAILY [facility] Last Admin: 04/23/17 08:52 Dose: 145 mg HCTZ/Losartan Potassium (Hyzaar 12.5 Mg-50 Mg) 1 tab PO DAILY [facility] Last Admin: 04/23/17 08:51 Dose: 1 tab Heparin Sodium (Porcine) (Heparin) 5,000 units SC Q12 [facility] PRN Reason: Protocol Last Admin: 04/23/17 21:23 Dose: 5,000 units Hydralazine HCl (Apresoline) 50 mg PO Q8H [facility] Last Admin: 04/24/17 06:23 Dose: 50 mg Hydromorphone HCl (Dilaudid) 1 mg IVP Q4 PRN PRN Reason: Pain, severe (8-10) Last Admin: 04/24/17 03:23 Dose: 1 mg Metronidazole 250 mg/ (Miscellaneous) 50 mls @ 50 mls/hr IVPB Q8 [facility] Last Admin: 04/24/17 00:31 Dose: 50 mls/hr Piperacillin Sod/Tazobactam (Sod 2.25 gm/ Sodium Chloride) 100 mls @ 100 mls/ hr IVPB Q8 [facility] Last Admin: 04/24/17 00:32 Dose: 100 mls/hr Lactated Ringer's (Lactated Ringer's) 1,000 mls @ 100 mls/hr IV .Q10H [facility] Last Admin: 04/24/17 01:00 Dose: 100 mls/hr Insulin Detemir (Levemir) 12 units SC Q12H [facility] Last Admin: 04/23/17 18:08 Dose: 12 u Insulin Human Lispro (Humalog) 0 units SC ACCU-CHECK [facility] PRN Reason: Protocol Last Admin: 04/23/17 22:58 Dose: Not Given Metoprolol Tartrate (Lopressor) 100 mg PO DAILY [facility] Last Admin: 04/23/17 08:52 Dose: 100 mg Ondansetron HCl (Zofran Inj) 4 mg IVP Q6 PRN PRN Reason: Nausea/Vomiting Oxycodone/Acetaminophen (Percocet 5/325 Mg Tab) 1 tab PO Q4 PRN PRN Reason: Pain, Mild (1-3) Stop: 04/24/17 13:02 Oxycodone/Acetaminophen (Percocet 5/325 Mg Tab) 2 tab PO Q4 PRN PRN Reason: Pain, moderate (4-7) Stop: 04/26/17 09:34 - Labs Labs: 04/24/17 05:45 04/24/17 05:45 PT 13.8 Seconds (9.8-13.1) H 04/21/17 05:30 INR 1.2 (0.9-1.2) 04/21/17 05:30 APTT 27.8 Seconds (25.6-37.1) 04/21/17 05:30 - Constitutional Appears: Non-toxic, No Acute Distress - Head Exam Head Exam: ATRAUMATIC, NORMAL INSPECTION - Eye Exam Eye Exam: EOMI - ENT Exam ENT Exam: Mucous Membranes Moist, Normal External Ear Exam - Neck Exam Neck Exam: Full ROM - Respiratory Exam Respiratory Exam: NORMAL BREATHING PATTERN. absent: Accessory Muscle Use, Respiratory Distress - GI/Abdominal Exam GI & Abdominal Exam: Soft, Tenderness (TLQ). absent: Distended, Firm, Guarding , Rigid, Rebound Additional comments: Midline incision C/D/I - Extremities Exam Extremities Exam: absent: Calf Tenderness, Pedal Edema - Neurological Exam Neurological Exam: Alert, Awake, Oriented x3 - Psychiatric Exam Psychiatric exam: Normal Affect, Normal Mood - Skin Skin Exam: Dry, Normal Color, Warm Assessment and Plan - Assessment and Plan (Free Text) Assessment: 76M w. cecal mass, s/p R hemicolectomy, POD#3 -continue to monitor bowel fxn, will advance diet when passing flatus -K-dur for hypokalemia -c/w PT -encourage ambulation, OOB, and IS use -DVT prophylaxis -d/w attending Christopheritis PGY3
[2017-04-24] MEDS: Insulin Lispro (humaLOG) 100 Units/ml Inj SC SCH ×4 (07:59→22:07)
--- NOTE | 2017-04-24 08:52 | CP.PCM.PN ---
Subjective - Date & Time of Evaluation Date of Evaluation: 04/24/17 Time of Evaluation: 08:00 - Subjective Subjective: NO CHEST PAIN OR SOB LESS ABDOMINAL PAIN Objective - Vital Signs/Intake and Output Vital Signs (last 24 hours): Temp Pulse Resp BP Pulse Ox 99.3 F 78 20 180/77 H 96 04/24/17 00:49 04/24/17 06:23 04/24/17 00:49 04/24/17 06:23 04/24/17 00:49 - Medications Medications: Current Medications Amlodipine Besylate (Norvasc) 5 mg PO DAILY [facility] Last Admin: 04/23/17 08:52 Dose: 5 mg Docusate Sodium (Colace) 100 mg PO TID [facility] Fenofibrate (Tricor) 145 mg PO DAILY [facility] Last Admin: 04/23/17 08:52 Dose: 145 mg HCTZ/Losartan Potassium (Hyzaar 12.5 Mg-50 Mg) 1 tab PO DAILY [facility] Last Admin: 04/23/17 08:51 Dose: 1 tab Heparin Sodium (Porcine) (Heparin) 5,000 units SC Q12 [facility] PRN Reason: Protocol Last Admin: 04/23/17 21:23 Dose: 5,000 units Hydralazine HCl (Apresoline) 50 mg PO Q8H [facility] Last Admin: 04/24/17 06:23 Dose: 50 mg Hydromorphone HCl (Dilaudid) 1 mg IVP Q4 PRN PRN Reason: Pain, severe (8-10) Last Admin: 04/24/17 03:23 Dose: 1 mg Metronidazole 250 mg/ (Miscellaneous) 50 mls @ 50 mls/hr IVPB Q8 [facility] Last Admin: 04/24/17 00:31 Dose: 50 mls/hr Piperacillin Sod/Tazobactam (Sod 2.25 gm/ Sodium Chloride) 100 mls @ 100 mls/ hr IVPB Q8 [facility] Last Admin: 04/24/17 00:32 Dose: 100 mls/hr Lactated Ringer's (Lactated Ringer's) 1,000 mls @ 100 mls/hr IV .Q10H [facility] Last Admin: 04/24/17 01:00 Dose: 100 mls/hr Insulin Detemir (Levemir) 12 units SC Q12H [facility] Last Admin: 04/24/17 06:40 Dose: 12 u Insulin Human Lispro (Humalog) 0 units SC ACCU-CHECK [facility] PRN Reason: Protocol Last Admin: 04/24/17 07:59 Dose: 3 u Metoprolol Tartrate (Lopressor) 100 mg PO DAILY [facility] Last Admin: 04/23/17 08:52 Dose: 100 mg Ondansetron HCl (Zofran Inj) 4 mg IVP Q6 PRN PRN Reason: Nausea/Vomiting Oxycodone/Acetaminophen (Percocet 5/325 Mg Tab) 1 tab PO Q4 PRN PRN Reason: Pain, Mild (1-3) Stop: 04/24/17 13:02 Oxycodone/Acetaminophen (Percocet 5/325 Mg Tab) 2 tab PO Q4 PRN PRN Reason: Pain, moderate (4-7) Stop: 04/26/17 09:34 Potassium Chloride (K-Dur 20 Meq Er Tab) 20 meq PO DAILY [facility] - Labs Labs: 04/24/17 05:45 04/24/17 05:45 PT 13.8 Seconds (9.8-13.1) H 04/21/17 05:30 INR 1.2 (0.9-1.2) 04/21/17 05:30 APTT 27.8 Seconds (25.6-37.1) 04/21/17 05:30 - Respiratory Exam Respiratory Exam: Clear to Ausculation Bilateral - Cardiovascular Exam Cardiovascular Exam: REGULAR RHYTHM, +S1, +S2 - GI/Abdominal Exam GI & Abdominal Exam: Soft, Hypoactive Bowel Sounds - Extremities Exam Extremities Exam: Normal Inspection Assessment and Plan - Assessment and Plan (Free Text) Assessment: S/P RIGHT HEMICOLECTOMY WITH MASS HYPERTENSION Plan: CONTINUE PRESENT TREATMENT WIDTH ANTIHYPERTENSIVE MEDICATIONS DIET ADVANCEMENT PER SURGERY
[2017-04-24] MEDS: HCTZ/Losartan 12.5/50 Tab PO SCH (09:16)
[2017-04-24] MEDS: Potassium Chloride 20 mEq ER Tab PO SCH (09:20)
[2017-04-24] MEDS: Oxycodone/Acetaminophen 5/325 mg Tab PO PRN (16:23)
--- NOTE | 2017-04-25 00:07 | PN ---
DATE: 04/24/2017 DAILY PROGRESS NOTE SUBJECTIVE: Patient is seen today, 04/24/2017. He is not in any cardiopulmonary distress. Patient still has some abdominal pain and he . PHYSICAL EXAMINATION VITAL SIGNS: Blood pressure 120/70, temperature 98.4, respiratory rate 18, pulse 80. HEENT: Pupils equal, reactive to light. Normal appearing mucosa of the conjunctivae, oropharyngeal, and nasal membrane mucosa. NECK: Supple. No JVD. No carotid bruit. No lymph nodes. No thyromegaly. CHEST AND LUNGS: Bilateral symmetrical expansion. Good air exchange. No rales. No rhonchi. CARDIOVASCULAR SYSTEM: PMI not localized. S1 and S2. No additional sounds. ABDOMEN: Normoactive bowel sounds. There is slight tenderness at the site of the surgical wound. EXTREMITIES: No cyanosis, no clubbing, no edema. CATHETER FINISHER AND INSPECTOR: Alert, awake, and oriented x3. No neurological deficit could be appreciated. ASSESSMENT AND PLAN: Status post right hemicolectomy, type 2 diabetes mellitus, hypertension, history of fixation of hip. PLAN: Continue postoperative care as per surgery. Monitor electrolytes and advance diet as per surgical recommendations. Shashi Thurston MD
[2017-04-25] MEDS: metroNIDAZOLE 500mg/100ml NS 250 MG in Premixed IV 1 EA IVPB SCH ×3 (00:08→17:03)
[2017-04-25] MEDS: Insulin Detemir 100 Units/ml Inj SC SCH ×2 (06:33→18:07)
[2017-04-25] MEDS: Insulin Lispro (humaLOG) 100 Units/ml Inj SC SCH ×4 (06:34→22:11)
[2017-04-25] MEDS: Lactated Ringer's 1,000 ML IV SCH ×2 (06:35→13:00)
[2017-04-25 08:45] LABS: BASO % 0.3 % (0.0-2.0); EOS # 0.2 K/uL (0.0-0.7); EOS % 3.5 % (0.0-4.0); HEMOGLOBIN 10.7 g/dL (12.0-18.0); LYMPH # 1.4 K/uL (1.0-4.3); LYMPH % 19.8 % (20.0-40.0); MEAN CELL VOLUME 83.2 fl (80.0-94.0); MEAN CORPUSCULAR HEMOGLOBIN 27.4 pg (27.0-31.0); MEAN CORPUSCULAR HGB CONC 32.9 g/dL (33.0-37.0); MEAN PLATELET VOLUME 9.5 fl (7.2-11.7); MONO # 0.3 K/uL (0.0-0.8); MONO % 4.2 % (0.0-10.0); NEUT # 4.9 K/uL (1.8-7.0); NEUT % 72.2 % (50.0-75.0); RBC 3.92 Mil/uL (4.40-5.90); RED CELL DISTRIBUTION WIDTH 13.5 % (11.5-14.5); WHITE BLOOD COUNT 6.8 K/uL (4.8-10.8)
[2017-04-25 09:03] LABS: BLOOD UREA NITROGEN 12 mg/dl (9-20); CALCIUM 8.8 mg/dL (8.4-10.2); GFR AFRICAN-AMERICAN > 60; GFR NON-AFRICAN AMERICAN > 60
[2017-04-25] MEDS: HCTZ/Losartan 12.5/50 Tab PO SCH (09:24)
[2017-04-25] MEDS: Potassium Chloride 20 mEq ER Tab PO SCH (09:25)
[2017-04-25] MEDS: Oxycodone/Acetaminophen 5/325 mg Tab PO PRN ×2 (09:49→18:14)
[2017-04-25] MEDS ORDERED: Potassium Chloride 20 mEq ER Tab PO ONE ×3 (12:05→12:12)
--- NOTE | 2017-04-25 12:08 | CP.PCM.PN ---
Subjective - Date & Time of Evaluation Date of Evaluation: 04/25/17 Time of Evaluation: 07:00 - Subjective Subjective: GENERAL SURGERY PROGRESS NOTE FOR DR. WU Patient seen and examined at bedside. He reports mild pain to the right of the incision. He is tolerating his full liquid diet, denies nausea or vomiting. He is ambulating and using his IS. He is passing flatus but denies BM after surgery. Objective - Vital Signs/Intake and Output Vital Signs (last 24 hours): Temp Pulse Resp BP Pulse Ox 99 F 93 H 20 182/70 H 97 04/25/17 08:09 04/25/17 09:24 04/25/17 08:09 04/25/17 09:24 04/25/17 08:09 - Medications Medications: Current Medications Amlodipine Besylate (Norvasc) 5 mg PO DAILY [facility] Last Admin: 04/25/17 09:24 Dose: 5 mg Docusate Sodium (Colace) 100 mg PO TID [facility] Last Admin: 04/25/17 09:23 Dose: 100 mg Fenofibrate (Tricor) 145 mg PO DAILY [facility] Last Admin: 04/25/17 09:25 Dose: 145 mg HCTZ/Losartan Potassium (Hyzaar 12.5 Mg-50 Mg) 1 tab PO DAILY [facility] Last Admin: 04/25/17 09:24 Dose: 1 tab Heparin Sodium (Porcine) (Heparin) 5,000 units SC Q12 [facility] PRN Reason: Protocol Last Admin: 04/25/17 09:25 Dose: 5,000 units Hydralazine HCl (Apresoline) 50 mg PO Q8H [facility] Last Admin: 04/25/17 06:33 Dose: 50 mg Hydromorphone HCl (Dilaudid) 1 mg IVP Q4 PRN PRN Reason: Pain, severe (8-10) Last Admin: 04/25/17 03:18 Dose: 1 mg Metronidazole 250 mg/ (Miscellaneous) 50 mls @ 50 mls/hr IVPB Q8 [facility] Last Admin: 04/25/17 00:08 Dose: 50 mls/hr Piperacillin Sod/Tazobactam (Sod 2.25 gm/ Sodium Chloride) 100 mls @ 100 mls/ hr IVPB Q8 [facility] Last Admin: 04/25/17 09:26 Dose: 100 mls/hr Lactated Ringer's (Lactated Ringer's) 1,000 mls @ 50 mls/hr IV .Q20H [facility] Insulin Detemir (Levemir) 12 units SC Q12H [facility] Last Admin: 04/25/17 06:33 Dose: 12 units Insulin Human Lispro (Humalog) 0 units SC ACCU-CHECK [facility] PRN Reason: Protocol Last Admin: 04/25/17 06:34 Dose: Not Given Metoprolol Tartrate (Lopressor) 100 mg PO DAILY [facility] Last Admin: 04/25/17 09:24 Dose: 100 mg Ondansetron HCl (Zofran Inj) 4 mg IVP Q6 PRN PRN Reason: Nausea/Vomiting Oxycodone/Acetaminophen (Percocet 5/325 Mg Tab) 2 tab PO Q4 PRN PRN Reason: Pain, moderate (4-7) Stop: 04/26/17 09:34 Last Admin: 04/25/17 09:49 Dose: 2 tab Potassium Chloride (K-Dur 20 Meq Er Tab) 20 meq PO DAILY [facility] Last Admin: 04/25/17 09:25 Dose: 20 meq Potassium Chloride (K-Dur 20 Meq Er Tab) 20 meq PO ONCE ONE Stop: 04/25/17 12:06 - Labs Labs: 04/25/17 07:30 04/25/17 07:30 PT 13.8 Seconds (9.8-13.1) H 04/21/17 05:30 INR 1.2 (0.9-1.2) 04/21/17 05:30 APTT 27.8 Seconds (25.6-37.1) 04/21/17 05:30 - Constitutional Appears: Non-toxic, No Acute Distress - Head Exam Head Exam: ATRAUMATIC, NORMAL INSPECTION - Eye Exam Eye Exam: EOMI, Normal appearance - Respiratory Exam Respiratory Exam: NORMAL BREATHING PATTERN. absent: Clear to Ausculation Bilateral - Cardiovascular Exam Cardiovascular Exam: +S1, +S2 - GI/Abdominal Exam GI & Abdominal Exam: Soft, Tenderness (mildly tender to right of incision). absent: Distended, Firm, Guarding, Rigid, Rebound Additional comments: annie in place - Neurological Exam Neurological Exam: Alert, Awake, Oriented x3 - Psychiatric Exam Psychiatric exam: Normal Affect, Normal Mood - Skin Skin Exam: Dry, Normal Color, Warm Assessment and Plan - Assessment and Plan (Free Text) Assessment: 76yo M with Right colon mass s/p Right colectomy with primary anastomosis POD#4 - Afebrile, VSS - Ambulating with PT and on own in the halls - Using IS - Hypokalemia 3.2 today, gave 20meq PO KCl daily + additional 20meq dose - Decreased IVF rate to 50cc/hr - Tolerating full liquid diet - Passing flatus - Will advance to CCD/soft diet - D/C planning - Discussed plan with Dr. Josefina Salgado PGY-3
[2017-04-25] MEDS ORDERED: Magnesium Sulfate 1 GM in Dextrose 5% In Water 100 ML IV ONE (12:45)
[2017-04-25] MEDS ORDERED: HCTZ/Losartan 12.5/50 Tab PO ONE (13:15)
--- NOTE | 2017-04-25 13:17 | CP.PCM.PN ---
Subjective - Date & Time of Evaluation Date of Evaluation: 04/25/17 Time of Evaluation: 12:00 - Subjective Subjective: NO CHEST PAIN OR SOB Objective - Vital Signs/Intake and Output Vital Signs (last 24 hours): Temp Pulse Resp BP Pulse Ox 99 F 93 H 20 182/70 H 97 04/25/17 08:09 04/25/17 09:24 04/25/17 08:09 04/25/17 09:24 04/25/17 08:09 - Medications Medications: Current Medications Amlodipine Besylate (Norvasc) 5 mg PO DAILY [facility] Last Admin: 04/25/17 09:24 Dose: 5 mg Docusate Sodium (Colace) 100 mg PO TID [facility] Last Admin: 04/25/17 09:23 Dose: 100 mg Fenofibrate (Tricor) 145 mg PO DAILY [facility] Last Admin: 04/25/17 09:25 Dose: 145 mg HCTZ/Losartan Potassium (Hyzaar 12.5 Mg-50 Mg) 1 tab PO DAILY [facility] Last Admin: 04/25/17 09:24 Dose: 1 tab Heparin Sodium (Porcine) (Heparin) 5,000 units SC Q12 [facility] PRN Reason: Protocol Last Admin: 04/25/17 09:25 Dose: 5,000 units Hydralazine HCl (Apresoline) 50 mg PO Q8H [facility] Last Admin: 04/25/17 06:33 Dose: 50 mg Hydromorphone HCl (Dilaudid) 1 mg IVP Q4 PRN PRN Reason: Pain, severe (8-10) Last Admin: 04/25/17 03:18 Dose: 1 mg Metronidazole 250 mg/ (Miscellaneous) 50 mls @ 50 mls/hr IVPB Q8 [facility] Last Admin: 04/25/17 00:08 Dose: 50 mls/hr Piperacillin Sod/Tazobactam (Sod 2.25 gm/ Sodium Chloride) 100 mls @ 100 mls/ hr IVPB Q8 [facility] Last Admin: 04/25/17 09:26 Dose: 100 mls/hr Lactated Ringer's (Lactated Ringer's) 1,000 mls @ 50 mls/hr IV .Q20H [facility] Magnesium Sulfate 1 gm/ (Dextrose) 102 mls @ 102 mls/hr IV ONCE ONE PRN Reason: 1 GM/HR Stop: 04/25/17 13:44 Insulin Detemir (Levemir) 12 units SC Q12H [facility] Last Admin: 04/25/17 06:33 Dose: 12 units Insulin Human Lispro (Humalog) 0 units SC ACCU-CHECK [facility] PRN Reason: Protocol Last Admin: 04/25/17 06:34 Dose: Not Given Metoprolol Tartrate (Lopressor) 100 mg PO DAILY [facility] Last Admin: 04/25/17 09:24 Dose: 100 mg Ondansetron HCl (Zofran Inj) 4 mg IVP Q6 PRN PRN Reason: Nausea/Vomiting Oxycodone/Acetaminophen (Percocet 5/325 Mg Tab) 2 tab PO Q4 PRN PRN Reason: Pain, moderate (4-7) Stop: 04/26/17 09:34 Last Admin: 04/25/17 09:49 Dose: 2 tab Potassium Chloride (K-Dur 20 Meq Er Tab) 20 meq PO DAILY [facility] Last Admin: 04/25/17 09:25 Dose: 20 meq Potassium Chloride (K-Dur 20 Meq Er Tab) 40 meq PO ONCE [facility] - Labs Labs: 04/25/17 07:30 04/25/17 07:30 PT 13.8 Seconds (9.8-13.1) H 04/21/17 05:30 INR 1.2 (0.9-1.2) 04/21/17 05:30 APTT 27.8 Seconds (25.6-37.1) 04/21/17 05:30 - Respiratory Exam Respiratory Exam: Clear to Ausculation Bilateral - Cardiovascular Exam Cardiovascular Exam: REGULAR RHYTHM, +S1, +S2 - GI/Abdominal Exam GI & Abdominal Exam: Soft, Normal Bowel Sounds - Extremities Exam Extremities Exam: Normal Inspection - Additional Findings Additional findings: PATHOLOGY REPORT NOTED K+ 3.2 BP READINGS ARE HIGH Assessment and Plan - Assessment and Plan (Free Text) Assessment: S/P RIGHT COLECTOMY HYPERTENSION HYPERLIPIDEMIA Plan: CONTINUE HYZAAR, AMLODIPINE, METOPROLOL, APRESOLINE, TRICOR, KCL AND ANTIBIOTICS WILL INCREASE AMLODIPINE AND HYZAAR BP IS STILL HIGH
[2017-04-25] MEDS ORDERED: Potassium Chloride 20 mEq ER Tab PO SCH (16:00)
--- NOTE | 2017-04-26 00:26 | PN ---
SUBJECTIVE: The patient is seen today, 04/25/2017. He is able to pass gas, but did not move bowel yet. PHYSICAL EXAMINATION: VITAL SIGNS: Blood pressure is 123/62, temperature 98.7, respiratory rate 18 and pulse 69. HEENT: Pupils equal and reactive to light. Normal-appearing mucosa of the conjunctivae, oropharyngeal, nasal membrane mucosa. NECK: Supple, no JVD. No carotid bruit. No lymph node. No thyromegaly. CHEST AND LUNGS: Bilateral symmetrical expansion. Good air exchange. No rales. No rhonchi. CARDIOPULMONARY: PMI not localized. S1 and S2. No additional sounds. ABDOMEN: Normoactive bowel sounds. No tenderness. No organomegaly. No masses. EXTREMITIES: No cyanosis, no clubbing, no edema. TONNAGE COMPILATION CLERK: Alert, awake and oriented x3. No neurological deficit could be appreciated. ASSESSMENT: 1. Postoperative, status post right hemicolectomy. 2. Type 2 diabetes mellitus. 3. Hypertension. PLAN: Continue current IV fluids and supplement potassium as potassium level is 3.2 and magnesium. Follow surgical recommendations. Follow pathology report. Radha MD Bertrand
[2017-04-26] MEDS: metroNIDAZOLE 500mg/100ml NS 250 MG in Premixed IV 1 EA IVPB SCH ×3 (01:32→16:52)
[2017-04-26] MEDS: Oxycodone/Acetaminophen 5/325 mg Tab PO PRN (01:32)
[2017-04-26] MEDS: Insulin Detemir 100 Units/ml Inj SC SCH ×2 (05:33→19:45)
[2017-04-26] MEDS: Insulin Lispro (humaLOG) 100 Units/ml Inj SC SCH ×4 (07:00→22:09)
[2017-04-26 07:40] LABS: BASO % 0.3 % (0.0-2.0); EOS # 0.3 K/uL (0.0-0.7); EOS % 4.3 % (0.0-4.0); LYMPH # 1.9 K/uL (1.0-4.3); LYMPH % 27.5 % (20.0-40.0); MEAN CELL VOLUME 83.4 fl (80.0-94.0); MEAN CORPUSCULAR HEMOGLOBIN 28.1 pg (27.0-31.0); MEAN CORPUSCULAR HGB CONC 33.7 g/dL (33.0-37.0); MEAN PLATELET VOLUME 9.7 fl (7.2-11.7); MONO # 0.3 K/uL (0.0-0.8); MONO % 4.7 % (0.0-10.0); NEUT # 4.5 K/uL (1.8-7.0); NEUT % 63.2 % (50.0-75.0); NRBC % 0.1 % (0.0-0.0); RBC 3.9 Mil/uL (4.40-5.90); RED CELL DISTRIBUTION WIDTH 13.7 % (11.5-14.5); WHITE BLOOD COUNT 7.1 K/uL (4.8-10.8)
[2017-04-26 07:57] LABS: BLOOD UREA NITROGEN 14 mg/dl (9-20); CALCIUM 8.9 mg/dL (8.4-10.2); GFR AFRICAN-AMERICAN > 60; GFR NON-AFRICAN AMERICAN > 60
[2017-04-26] MEDS: HCTZ/Losartan 12.5/50 Tab PO SCH (09:34)
[2017-04-26] MEDS: Potassium Chloride 20 mEq ER Tab PO SCH (09:34)
--- NOTE | 2017-04-26 12:06 | CP.PCM.PN ---
Subjective - Date & Time of Evaluation Date of Evaluation: 04/26/31 Time of Evaluation: 11:30 - Subjective Subjective: NO CHEST PAIN OR SOB FEELING BETTER, LESS ABDOMINAL PAIN Objective - Vital Signs/Intake and Output Vital Signs (last 24 hours): Temp Pulse Resp BP Pulse Ox 97.9 F 81 20 189/68 H 98 04/26/17 09:23 04/26/17 09:39 04/26/17 09:23 04/26/17 09:39 04/26/17 09:23 - Medications Medications: Current Medications Amlodipine Besylate (Norvasc) 10 mg PO DAILY [facility] Last Admin: 04/26/17 09:39 Dose: 10 mg Docusate Sodium (Colace) 100 mg PO TID [facility] Last Admin: 04/26/17 09:28 Dose: 100 mg Fenofibrate (Tricor) 145 mg PO DAILY [facility] Last Admin: 04/26/17 09:37 Dose: 145 mg HCTZ/Losartan Potassium (Hyzaar 12.5 Mg-50 Mg) 2 tab PO DAILY [facility] Last Admin: 04/26/17 09:34 Dose: 2 tab Heparin Sodium (Porcine) (Heparin) 5,000 units SC Q12 [facility] PRN Reason: Protocol Last Admin: 04/26/17 09:31 Dose: 5,000 units Hydralazine HCl (Apresoline) 50 mg PO Q8H [facility] Last Admin: 04/26/17 05:33 Dose: 50 mg Hydromorphone HCl (Dilaudid) 1 mg IVP Q4 PRN PRN Reason: Pain, severe (8-10) Last Admin: 04/25/17 03:18 Dose: 1 mg Metronidazole 250 mg/ (Miscellaneous) 50 mls @ 50 mls/hr IVPB Q8 [facility] Last Admin: 04/26/17 09:29 Dose: 50 mls/hr Piperacillin Sod/Tazobactam (Sod 2.25 gm/ Sodium Chloride) 100 mls @ 100 mls/ hr IVPB Q8 [facility] Last Admin: 04/26/17 09:37 Dose: 100 mls/hr Lactated Ringer's (Lactated Ringer's) 1,000 mls @ 50 mls/hr IV .Q20H [facility] Last Admin: 04/25/17 13:00 Dose: 50 mls/hr Insulin Detemir (Levemir) 12 units SC Q12H [facility] Last Admin: 04/26/17 05:33 Dose: 12 units Insulin Human Lispro (Humalog) 0 units SC ACCU-CHECK [facility] PRN Reason: Protocol Last Admin: 04/26/17 07:00 Dose: 2 units Metoprolol Tartrate (Lopressor) 100 mg PO DAILY [facility] Last Admin: 04/26/17 09:35 Dose: 100 mg Ondansetron HCl (Zofran Inj) 4 mg IVP Q6 PRN PRN Reason: Nausea/Vomiting Potassium Chloride (K-Dur 20 Meq Er Tab) 20 meq PO DAILY [facility] Last Admin: 04/26/17 09:34 Dose: 20 meq Potassium Chloride (K-Dur 20 Meq Er Tab) 40 meq PO ONCE [facility] - Labs Labs: 04/26/17 06:00 04/26/17 06:00 PT 13.8 Seconds (9.8-13.1) H 04/21/17 05:30 INR 1.2 (0.9-1.2) 04/21/17 05:30 APTT 27.8 Seconds (25.6-37.1) 04/21/17 05:30 - Respiratory Exam Respiratory Exam: Clear to Ausculation Bilateral - Cardiovascular Exam Cardiovascular Exam: REGULAR RHYTHM, +S1, +S2 - GI/Abdominal Exam GI & Abdominal Exam: Soft, Normal Bowel Sounds - Extremities Exam Extremities Exam: Normal Inspection - Additional Findings Additional findings: WBC 7.1 K+ 3.7 BP TAKEN MANUALLY BY ME AND IT WAS 150/70 ON INCREASED MEDICATIONS Assessment and Plan - Assessment and Plan (Free Text) Assessment: S/P RIGHT HEMICOLECTOMY HYPERTENSION HYPERLIPIDEMIA Plan: EXTRA LOSARTAN 50/ HCTZ 25 AND AMLODIPINE 5 MGS GIVEN YESTERDAY AFTERNOON, AND LOSARTAN/HCTZ INCREASED TO 100/50 AND AMLODIPINE INCREASED TO 10 MGS DAILY OF TODAY CONTINUE APRESOLINE AND METOPROLOL CONTINUE FENOFIBRATE AND ANTIBIOTICS
--- NOTE | 2017-04-26 12:49 | CP.PCM.PN ---
Subjective - Date & Time of Evaluation Date of Evaluation: 04/26/17 Time of Evaluation: 07:00 - Subjective Subjective: GENERAL SURGERY PROGRESS NOTE FOR DR. WU Patient seen and examined at bedside. He reports mild pain to the top of the incision. He is tolerating his soft diet, denies nausea or vomiting. He is ambulating in the halls and using his IS. He is passing flatus but still denies BM after surgery. Objective - Vital Signs/Intake and Output Vital Signs (last 24 hours): Temp Pulse Resp BP Pulse Ox 97.9 F 81 20 189/68 H 98 04/26/17 09:23 04/26/17 09:39 04/26/17 09:23 04/26/17 09:39 04/26/17 09:23 - Medications Medications: Current Medications Amlodipine Besylate (Norvasc) 10 mg PO DAILY [facility] Last Admin: 04/26/17 09:39 Dose: 10 mg Bisacodyl (Dulcolax) 10 mg [place] ONCE ONE Stop: 04/26/17 12:45 Docusate Sodium (Colace) 100 mg PO TID [facility] Last Admin: 04/26/17 09:28 Dose: 100 mg Fenofibrate (Tricor) 145 mg PO DAILY [facility] Last Admin: 04/26/17 09:37 Dose: 145 mg HCTZ/Losartan Potassium (Hyzaar 12.5 Mg-50 Mg) 2 tab PO DAILY [facility] Last Admin: 04/26/17 09:34 Dose: 2 tab Heparin Sodium (Porcine) (Heparin) 5,000 units SC Q12 [facility] PRN Reason: Protocol Last Admin: 04/26/17 09:31 Dose: 5,000 units Hydralazine HCl (Apresoline) 50 mg PO Q8H [facility] Last Admin: 04/26/17 05:33 Dose: 50 mg Hydromorphone HCl (Dilaudid) 1 mg IVP Q4 PRN PRN Reason: Pain, severe (8-10) Last Admin: 04/25/17 03:18 Dose: 1 mg Metronidazole 250 mg/ (Miscellaneous) 50 mls @ 50 mls/hr IVPB Q8 [facility] Last Admin: 04/26/17 09:29 Dose: 50 mls/hr Piperacillin Sod/Tazobactam (Sod 2.25 gm/ Sodium Chloride) 100 mls @ 100 mls/ hr IVPB Q8 [facility] Last Admin: 04/26/17 09:37 Dose: 100 mls/hr Lactated Ringer's (Lactated Ringer's) 1,000 mls @ 50 mls/hr IV .Q20H [facility] Last Admin: 04/25/17 13:00 Dose: 50 mls/hr Insulin Detemir (Levemir) 12 units SC Q12H [facility] Last Admin: 04/26/17 05:33 Dose: 12 units Insulin Human Lispro (Humalog) 0 units SC ACCU-CHECK [facility] PRN Reason: Protocol Last Admin: 04/26/17 12:07 Dose: 4 units Metoprolol Tartrate (Lopressor) 100 mg PO DAILY [facility] Last Admin: 04/26/17 09:35 Dose: 100 mg Ondansetron HCl (Zofran Inj) 4 mg IVP Q6 PRN PRN Reason: Nausea/Vomiting Potassium Chloride (K-Dur 20 Meq Er Tab) 20 meq PO DAILY [facility] Last Admin: 04/26/17 09:34 Dose: 20 meq Potassium Chloride (K-Dur 20 Meq Er Tab) 40 meq PO ONCE [facility] - Labs Labs: 04/26/17 06:00 04/26/17 06:00 PT 13.8 Seconds (9.8-13.1) H 04/21/17 05:30 INR 1.2 (0.9-1.2) 04/21/17 05:30 APTT 27.8 Seconds (25.6-37.1) 04/21/17 05:30 - Constitutional Appears: Non-toxic, No Acute Distress - Head Exam Head Exam: ATRAUMATIC, NORMAL INSPECTION - Eye Exam Eye Exam: EOMI, Normal appearance - Respiratory Exam Respiratory Exam: NORMAL BREATHING PATTERN. absent: Respiratory Distress - Cardiovascular Exam Cardiovascular Exam: +S1, +S2 - GI/Abdominal Exam GI & Abdominal Exam: Soft, Tenderness (mild tenderness superior and to right of incision). absent: Distended, Firm, Guarding, Rigid, Rebound Additional comments: annie in place - Neurological Exam Neurological Exam: Alert, Awake, Oriented x3 - Psychiatric Exam Psychiatric exam: Normal Affect, Normal Mood - Skin Skin Exam: Dry, Normal Color, Warm Assessment and Plan - Assessment and Plan (Free Text) Assessment: 76yo M with Right colon mass s/p Right colectomy with primary anastomosis POD#5 - Afebrile, VSS - Ambulating in the halls - Using IS - Tolerating soft diet - Passing flatus - Still no BM yet, will give Dulcolax - Discussed plan with Dr. Josefina Salgado PGY-3
--- NOTE | 2017-04-26 15:12 | PN ---
DATE: 04/26/2017 DAILY PROGRESS NOTE SUBJECTIVE: The patient is seen today, 04/26/2017. He is not in any cardiopulmonary distress and the patient did not move his bowel yet, but he is able to tolerate regular food. PHYSICAL EXAMINATION: VITAL SIGNS: Blood pressure 189/68, temperature 97.9, respiratory rate 20 and pulse 81. HEENT: Pupils equal, reactive to light. Normal-appearing mucosa of the conjunctivae, oropharyngeal, and nasal membrane mucosa. NECK: Supple. No JVD. No carotid bruit. No lymph nodes. No thyromegaly. CHEST AND LUNGS: Bilateral symmetrical expansion. Good air exchange. No rales. No rhonchi. CARDIOVASCULAR SYSTEM: PMI not localized. S1 and S2. No additional sounds. ABDOMEN: Normoactive bowel sounds. No tenderness. No organomegaly. No masses. EXTREMITIES: No cyanosis, no clubbing, no edema. CENTRAL NERVOUS SYSTEM: Alert, awake, and oriented x3. No neurological deficit could be appreciated. ASSESSMENT: 1. Status post right hemicolectomy that did not show any signs of and the pathology report is noticed. 2. Hypertension. 3. Type 2 diabetes mellitus. PLAN: Continue current medications and we will add the patient's antihypertensive medication as now he started to eat. We will follow surgical recommendation. Shashi Thurston MD
[2017-04-27] MEDS: metroNIDAZOLE 500mg/100ml NS 250 MG in Premixed IV 1 EA IVPB SCH ×2 (00:07→08:32)
[2017-04-27] MEDS: Lactated Ringer's 1,000 ML IV SCH ×2 (00:08→05:00)
[2017-04-27] MEDS: Insulin Detemir 100 Units/ml Inj SC SCH (06:12)
[2017-04-27 07:44] VITALS: RESP 20
[2017-04-27] MEDS: HCTZ/Losartan 12.5/50 Tab PO SCH (08:31)
[2017-04-27] MEDS: Insulin Lispro (humaLOG) 100 Units/ml Inj SC SCH ×2 (08:32→12:29)
[2017-04-27] MEDS: Potassium Chloride 20 mEq ER Tab PO SCH (08:34)
--- NOTE | 2017-04-27 09:08 | CP.PCM.PN ---
Subjective - Date & Time of Evaluation Date of Evaluation: 04/27/17 Time of Evaluation: 09:06 - Subjective Subjective: Surgery: Dr. Rocha Pt seen and examined. Resting comfortably in bed. Pain controlled. Tolerating diet. No N/V. Passing flatus. +BM. Objective - Vital Signs/Intake and Output Vital Signs (last 24 hours): Temp Pulse Resp BP Pulse Ox 99.2 F 75 20 170/73 H 97 04/27/17 07:44 04/27/17 07:44 04/27/17 07:44 04/27/17 07:44 04/27/17 07:44 - Medications Medications: Current Medications Amlodipine Besylate (Norvasc) 10 mg PO DAILY [facility] Last Admin: 04/27/17 08:35 Dose: 10 mg Docusate Sodium (Colace) 100 mg PO TID [facility] Last Admin: 04/27/17 08:32 Dose: 100 mg Fenofibrate (Tricor) 145 mg PO DAILY [facility] Last Admin: 04/27/17 08:35 Dose: 145 mg HCTZ/Losartan Potassium (Hyzaar 12.5 Mg-50 Mg) 2 tab PO DAILY [facility] Last Admin: 04/27/17 08:31 Dose: 2 tab Heparin Sodium (Porcine) (Heparin) 5,000 units SC Q12 [facility] PRN Reason: Protocol Last Admin: 04/27/17 08:30 Dose: 5,000 units Hydralazine HCl (Apresoline) 50 mg PO Q8H [facility] Last Admin: 04/27/17 06:11 Dose: 50 mg Metronidazole 250 mg/ (Miscellaneous) 50 mls @ 50 mls/hr IVPB Q8 [facility] Last Admin: 04/27/17 08:32 Dose: 50 mls/hr Lactated Ringer's (Lactated Ringer's) 1,000 mls @ 50 mls/hr IV .Q20H [facility] Last Admin: 04/27/17 05:00 Dose: Not Given Insulin Detemir (Levemir) 12 units SC Q12H [facility] Last Admin: 04/27/17 06:12 Dose: 12 units Insulin Human Lispro (Humalog) 0 units SC ACCU-CHECK [facility] PRN Reason: Protocol Last Admin: 04/27/17 08:32 Dose: 2 units Metoprolol Tartrate (Lopressor) 100 mg PO DAILY [facility] Last Admin: 04/27/17 08:32 Dose: 100 mg Ondansetron HCl (Zofran Inj) 4 mg IVP Q6 PRN PRN Reason: Nausea/Vomiting Potassium Chloride (K-Dur 20 Meq Er Tab) 20 meq PO DAILY [facility] Last Admin: 04/27/17 08:34 Dose: 20 meq Potassium Chloride (K-Dur 20 Meq Er Tab) 40 meq PO ONCE [facility] - Labs Labs: 04/26/17 06:00 04/26/17 06:00 PT 13.8 Seconds (9.8-13.1) H 04/21/17 05:30 INR 1.2 (0.9-1.2) 04/21/17 05:30 APTT 27.8 Seconds (25.6-37.1) 04/21/17 05:30 - Constitutional Appears: Non-toxic, No Acute Distress - Head Exam Head Exam: ATRAUMATIC, NORMOCEPHALIC - Eye Exam Eye Exam: EOMI - ENT Exam ENT Exam: Mucous Membranes Moist, Normal External Ear Exam - Neck Exam Neck Exam: Full ROM - Respiratory Exam Respiratory Exam: NORMAL BREATHING PATTERN. absent: Accessory Muscle Use, Respiratory Distress - GI/Abdominal Exam GI & Abdominal Exam: Soft. absent: Distended, Firm, Guarding, Rigid, Tenderness , Rebound Additional comments: midline incision C/D/I w. annie in place - Extremities Exam Extremities Exam: absent: Calf Tenderness, Pedal Edema - Neurological Exam Neurological Exam: Alert, Awake, Oriented x3 Assessment and Plan - Assessment and Plan (Free Text) Assessment: 76yo M with Right colon mass s/p Right colectomy with primary anastomosis POD#6 -Tolerating diet and +BM -clear for D/C from surgical standpoint -pt to follow up in office in 1 week -Activity as tolerated -d/w attending Zemaitis PGY3
[2017-04-27] MEDS ORDERED: Oxycodone/Acetaminophen 5/325 mg Tab PO PRN (10:14)
--- NOTE | 2017-04-27 10:37 | CP.PCM.PN ---
Subjective - Date & Time of Evaluation Date of Evaluation: 04/27/17 Time of Evaluation: 08:00 - Subjective Subjective: NO CHEST PAIN OR SOB ABDOMEN FEELS BETTER Objective - Vital Signs/Intake and Output Vital Signs (last 24 hours): Temp Pulse Resp BP Pulse Ox 99.2 F 75 20 170/73 H 97 04/27/17 07:44 04/27/17 07:44 04/27/17 07:44 04/27/17 07:44 04/27/17 07:44 - Medications Medications: Current Medications Amlodipine Besylate (Norvasc) 10 mg PO DAILY [facility] Last Admin: 04/27/17 08:35 Dose: 10 mg Docusate Sodium (Colace) 100 mg PO TID [facility] Last Admin: 04/27/17 08:32 Dose: 100 mg Fenofibrate (Tricor) 145 mg PO DAILY [facility] Last Admin: 04/27/17 08:35 Dose: 145 mg HCTZ/Losartan Potassium (Hyzaar 12.5 Mg-50 Mg) 2 tab PO DAILY [facility] Last Admin: 04/27/17 08:31 Dose: 2 tab Heparin Sodium (Porcine) (Heparin) 5,000 units SC Q12 [facility] PRN Reason: Protocol Last Admin: 04/27/17 08:30 Dose: 5,000 units Hydralazine HCl (Apresoline) 50 mg PO Q8H [facility] Last Admin: 04/27/17 06:11 Dose: 50 mg Metronidazole 250 mg/ (Miscellaneous) 50 mls @ 50 mls/hr IVPB Q8 [facility] Last Admin: 04/27/17 08:32 Dose: 50 mls/hr Insulin Detemir (Levemir) 12 units SC Q12H [facility] Last Admin: 04/27/17 06:12 Dose: 12 units Insulin Human Lispro (Humalog) 0 units SC ACCU-CHECK [facility] PRN Reason: Protocol Last Admin: 04/27/17 08:32 Dose: 2 units Metoprolol Tartrate (Lopressor) 100 mg PO DAILY [facility] Last Admin: 04/27/17 08:32 Dose: 100 mg Ondansetron HCl (Zofran Inj) 4 mg IVP Q6 PRN PRN Reason: Nausea/Vomiting Oxycodone/Acetaminophen (Percocet 5/325 Mg Tab) 1 tab PO Q4 PRN PRN Reason: Pain, moderate (4-7) Stop: 04/30/17 10:15 Potassium Chloride (K-Dur 20 Meq Er Tab) 20 meq PO DAILY [facility] Last Admin: 04/27/17 08:34 Dose: 20 meq Potassium Chloride (K-Dur 20 Meq Er Tab) 40 meq PO ONCE [facility] - Labs Labs: 04/26/17 06:00 04/26/17 06:00 PT 13.8 Seconds (9.8-13.1) H 04/21/17 05:30 INR 1.2 (0.9-1.2) 04/21/17 05:30 APTT 27.8 Seconds (25.6-37.1) 04/21/17 05:30 - Respiratory Exam Respiratory Exam: Clear to Ausculation Bilateral - Cardiovascular Exam Cardiovascular Exam: REGULAR RHYTHM, +S1, +S2 - GI/Abdominal Exam GI & Abdominal Exam: Soft, Normal Bowel Sounds - Extremities Exam Extremities Exam: Normal Inspection Assessment and Plan - Assessment and Plan (Free Text) Assessment: S/P RIGHT HEMICOLECTOMY HYPERTENSION HYPERLIPIDEMIA Plan: CONTINUE METOPROLOL, LOSARTAN/HCTZ, APRESOLINE, AMLODIPINE AND FENOFIBRATE PER SURGERY
[2017-04-27 16:03] VITALS: BP 150/73; PULSE 76; TEMP 97.8; O2SAT 100
--- NOTE | 2017-04-28 02:44 | DS ---
REASON FOR ADMISSION: This is a 76 years old male with history of multiple medical problems, was admitted for postsurgical anastomotic site inflammation and possible microperforation and abscess. COURSE OF HOSPITALIZATION: The patient was kept n.p.o. and he was given IV fluids and IV antibiotics. The patient had a surgical consultation done by Dr. Rocha. The patient underwent right hemicolectomy and pathology report was just inflammation. There was no neoplastic process. Postoperative course was uneventful and the patient was discharged home to continue and to continue probiotic for another week. FINAL DIAGNOSES: 1. Right-sided lower abdominal pain secondary to anastomotic site microperforation and colitis. 2. Hypertension. 3. Type 2 diabetes mellitus. 4. Status post right hemicolectomy. Shashi Thurston MD
--- NOTE | 2017-05-04 08:23 | OP ---
PREOPERATIVE DIAGNOSIS: Ileocecal anastomotic breakdown. POSTOPERATIVE DIAGNOSIS: Ileocecal anastomotic breakdown. PROCEDURE: Right hemicolectomy with primary anastomosis. INDICATION: This is a 76-year-old male who underwent a laparoscopic hand-assisted ileocecectomy with primary anastomosis in September of 2016 for cecal mass. Postoperatively, the patient presents to the ED on more than one occasion with right lower quadrant pain. Most recent examination, the patient underwent CAT scan which showed CAT scan findings concerning for anastomotic leak and now the patient was ultimately taken to the OR. DESCRIPTION OF THE PROCEDURE: The patient was placed in the supine position and general endotracheal anesthesia was induced. Sequential pneumatic compression devices were placed in the lower extremities. Preoperative antibiotics were given. A Barry catheter and nasogastric tube were placed. The abdomen was prepped and draped in the usual sterile fashion. A time-out was completed verifying correct patient, procedure, site, and positioning. A vertical midline incision was made in the middle-third of the abdomen. This was deepened through the subcutaneous tissue and hemostasis was achieved with electrocautery. The linea alba was identified, incised, and the peritoneal cavity was entered. The abdomen was explored. The anastomotic site was chronically inflamed and the surrounding mesentery was edematous. The liver, omentum, and the peritoneum were inspected and no metastatic disease was noted. A small hole was then inspected and retracted to the left with a moist gauze. With electrocautery, the colon was freed from its peritoneal attachments along the avascular line of Toldt from the cecum to the hepatic flexure. The dissection extended across the ileocecal junction and the terminal ileum was mobilized. The points of transection were selected proximally and distally to the original anastomotic site. The ball was divided with linear AN 75 mm blue load and the mesentery was divided with the LigaSure device. Remaining mesentery and all the associated claudia tissue was divided and slipped down with the specimen. The specimen was removed. Proximal tagged and sent to pathology. Hemostasis was checked in the operating field checked and found to be viable . Now the proximal and distal segments were brought down to position and found to lie comfortably next to each other. Two stay sutures with 3-0 silk were placed to proximate the antimesenteric borders of the ball segments. Enterotomies were made on the antimesenteric corner of the staple line on the ileum and the distal portion of the ascending colon. A 75-mm AN blue-loaded was inserted and fired. Hemostasis was check on the staple line. Enterotomies were then closed with a TA 90 stapler. The staple line was then imbricated with 3-0 silk sutures. The anastomosis was checked and found to be intact and widely patent. Mesenteric defect was closed with interrupted 3-0 Vicryl. The abdominal cavity was then irrigated and hemostasis was checked. The fascia was closed with a running looped PDS suture and the skin was closed with annie. The patient tolerated the procedure well and was taken to the PACU in stable condition. Isael Rocha DO
== END 2017-04-27 16:54 | disposition home health service (06) | DRG 856 ==
LOC: H.ER 20:38 → H.ERHOLD 04-16 00:39 → H.MEDSURG1 04-16 02:27
PROVIDERS: ADMIT Internal Medicine; ATTEND Internal Medicine
PROC: 0DTF0ZZ Resection of Right Large Intestine, Open Approach (ICD-10-PCS; principal; 2017-04-21 11:00)
PROC: 3E0T3CZ (ICD-10-PCS; 2017-04-21 11:00)
DX: T81.4XXA Infection following a procedure, initial encounter (principal); K63.1 Perforation of intestine (nontraumatic); K63.0 Abscess of intestine; E11.9 Type 2 diabetes mellitus without complications; E87.6 Hypokalemia; I10 Essential (primary) hypertension; K52.9 Noninfective gastroenteritis and colitis, unspecified; E03.9 Hypothyroidism, unspecified; E78.5 Hyperlipidemia, unspecified; J45.909 Unspecified asthma, uncomplicated; E78.00 Pure hypercholesterolemia, unspecified; Y83.2 Surgical operation with anastomosis, bypass or graft as the cause of abnormal reaction of the patient, or of later complication, without mention of misadventure at the time of the procedure; Z90.49 Acquired absence of other specified parts of digestive tract; Z86.010 Personal history of colon polyps; Z87.01 Personal history of pneumonia (recurrent)

== ENCOUNTER 2017-05-04 12:25 | Emergency (ER) | payer MEDICARE, OTHER ==
[2017-05-04 12:26] VITALS: BMI 30.7
[2017-05-04] MEDS ORDERED: Iohexol 300 100 ML IJ ONE (13:29)
[2017-05-04] MEDS ORDERED: Sodium Chloride 0.9% 50 ML IV ONE (13:29)
[2017-05-04 13:38] LABS: BASO # 0.1 K/uL (0.0-0.2); BASO % 0.7 % (0.0-2.0); EOS # 0.2 K/uL (0.0-0.7); EOS % 2.1 % (0.0-4.0); HEMOGLOBIN 10.5 g/dL (12.0-18.0); LYMPH # 1.1 K/uL (1.0-4.3); LYMPH % 12.2 % (20.0-40.0); MEAN CORPUSCULAR HEMOGLOBIN 28.2 pg (27.0-31.0); MEAN CORPUSCULAR HGB CONC 34.5 g/dL (33.0-37.0); MEAN PLATELET VOLUME 10.5 fl (7.2-11.7); MONO # 0.4 K/uL (0.0-0.8); MONO % 4.5 % (0.0-10.0); NEUT # 7.1 K/uL (1.8-7.0); NEUT % 80.5 % (50.0-75.0); NRBC % 0.1 % (0.0-0.0); RBC 3.72 Mil/uL (4.40-5.90); RED CELL DISTRIBUTION WIDTH 13.8 % (11.5-14.5); WHITE BLOOD COUNT 8.8 K/uL (4.8-10.8)
--- NOTE | 2017-05-04 14:03 | ED PDOC ---
HPI: Abdomen Time Seen by Provider: 05/04/17 13:03 Chief Complaint (Nursing): Abdominal Pain Additional Complaint(s): 76 y/oM phmx of diabetes, hypertension, hyperlipidemia, right ileocecectomy with primary anastomosis in Sep 2016 admitted on 04/16/17 with RLQ pain found to have imaging evidence of anastomotic breakdown and micro perforation. RIGHT HEMICOLECTOMY 04/21/17, in ED for eval of wound drainage to staple area states he has been noted yellow discharge with some pain and surrounding erythema x 2days no fever chills nausea vomiting back pain hematuira dysuria blood stools. PMD: Dr. Thurston . Past Medical History Reviewed: Historical Data, Nursing Documentation, Vital Signs Vital Signs: Last Vital Signs Temp 97.8 F 05/04/17 12:30 Pulse 79 05/04/17 12:30 Resp 18 05/04/17 12:30 BP 151/62 H 05/04/17 12:30 Pulse Ox 100 05/04/17 17:18 - Medical History PMH: Asthma, Colonic Polyps, Diabetes (type II), HTN, Hypercholesterolemia, Hyperlipidemia, Hypothyroidism (WAS PLACED ON MEDS PT DONT KNOW WHY), Pneumonia Denies: HIV, Chronic Kidney Disease - Surgical History Surgical History: Endoscopy - Family History Family History: States: Unknown Family Hx - Immunization History Hx Tetanus Toxoid Vaccination: No Hx Influenza Vaccination: No Hx Pneumococcal Vaccination: No - Home Medications Home Medications: Ambulatory Orders Medication Instructions Recorded Losartan/Hydrochlorothiazide 1 tab PO DAILY 11/27/16 [Losartan-Hctz 50-12.5 mg Tab] MetFORMIN [glucoPHAGE] 1,000 mg PO BID 11/27/16 Metoprolol Tartrate [Lopressor] 100 mg PO DAILY 11/27/16 hydrALAZINE [Apresoline] 25 mg PO Q8H 11/27/16 GlipiZIDE [Glucotrol] 10 mg PO BID 01/01/17 Fenofibrate [Tricor] 1 tab PO DAILY 03/18/17 Lactobacillus Acidophilus 1 each PO DAILY #30 capsule 04/27/17 [Acidophilus Lactobacilli] amLODIPine [Norvasc] 10 mg PO DAILY #30 04/27/17 Amoxicillin/Clavulanate [Augmentin 1 tab PO BID #14 tab 05/04/17 875 MG-125 MG] - Allergies Allergies/Adverse Reactions: Allergies Allergy/AdvReac Type Severity Reaction Status Date / Time No Known Allergies Allergy Verified 04/15/17 20:42 Review of Systems ROS Statement: Except As Marked, All Systems Reviewed And Found Negative Constitutional: Negative for: Fever, Chills Respiratory: Negative for: Cough, Shortness of Breath Gastrointestinal: Positive for: Abdominal Pain. Negative for: Nausea, Vomiting Physical Exam - Reviewed Nursing Documentation Reviewed: Yes Vital Signs Reviewed: Yes - Physical Exam Appears: Positive for: Well, Non-toxic, No Acute Distress Head Exam: Positive for: ATRAUMATIC, NORMAL INSPECTION, NORMOCEPHALIC Skin: Positive for: Normal Color, Warm, DRY Cardiovascular/Chest: Positive for: Regular Rate, Rhythm Respiratory: Positive for: CNT, Normal Breath Sounds Gastrointestinal/Abdominal: Positive for: Bowel Sounds, Soft, Tenderness ( tenderness to surgical site annie in place some pus draiange noted(mild) with surronding ertythema. ) Back: Positive for: Normal Inspection Neurologic/Psych: Positive for: Alert, Oriented - Laboratory Results Result Diagrams: 05/04/17 13:25 05/04/17 13:55 - ECG O2 Sat by Pulse Oximetry: 100 - Progress ED Course And Treament: Ct scan to r/o abscess at surgical site and cbc/cmp. CT scan shows no abscess formation. surgical oncologist will come see pt. Medical Decision Making Medical Decision Making: surgical oncologist saw pt and removed some annie with f.u outpt with MD kellie stable for d.c stable VS and well appearing pt will be d/c on augmentin x7d Disposition - Clinical Impression Clinical Impression: Removal of annie, Skin infection - Patient ED Disposition Is Patient to be Admitted: No Counseled Patient/Family Regarding: Studies Performed, Diagnosis, Need For Followup, Rx Given - Disposition Referrals: Isael Rocha DO [[facility]] - Disposition: Routine/Home Disposition Time: 17:19 Condition: STABLE Prescriptions: Amoxicillin/Clavulanate [Augmentin 875 MG-125 MG] 1 tab PO BID #14 tab Instructions: Abscess (ED) Forms: [employer] ([place] Citizen), [employer] ([place]ian) Print Language: DOMINICAN
[2017-05-04 14:16] LABS: ALB/GLOB RATIO 1.1 (1.0-2.1); ALBUMIN 4.1 g/dL (3.5-5.0); ALT/SGPT 63 U/L (21-72); AST/SGOT 43 U/L (17-59); BLOOD UREA NITROGEN 28 mg/dl (9-20); GFR AFRICAN-AMERICAN > 60; GFR NON-AFRICAN AMERICAN > 60
--- NOTE | 2017-05-04 15:36 | CT ---
PROCEDURE: CT Abdomen and Pelvis with contrast HISTORY: r/o abscess COMPARISON: Comparison is made to the previous study dated 04/15/2017 TECHNIQUE: Contrast dose: 95 cc of Omnipaque 300. Axial and reformatted coronal and sagittal CT images of the abdomen and pelvis were obtained after IV contrast administration. Radiation dose: Total exam DLP = 921.20 mGy-cm. This CT exam was performed using one or more of the following dose reduction techniques: Automated exposure control, adjustment of the mA and/or kV according to patient size, and/or use of iterative reconstruction technique. FINDINGS: LOWER THORAX: UnremarkableBilateral [id number] atelectasis seen. No evidence of pleural effusion. The heart is mildly enlarged. . LIVER: Unremarkable. No gross lesion or ductal dilatation. GALLBLADDER AND BILE DUCTS: Unremarkable. PANCREAS: Unremarkable. No gross lesion or ductal dilatation. SPLEEN: Unremarkable. ADRENALS: Unremarkable. No mass. KIDNEYS AND URETERS: The right kidney collecting system is mildly dilated without evidence of obstructing stone. There is mild right perinephric stranding. The possibility of UTI/infectious process should be excluded. VASCULATURE: Unremarkable. No aortic aneurysm. BOWEL: Postsurgical changes and bowel anastomosis are again seen at the right colon. Postsurgical changes are also seen at the midline anterior abdominal wall. No evidence of bowel obstruction . Colonic diverticulosis are seen without evidence of diverticulitis. APPENDIX: The appendix is not visualized. PERITONEUM: Mild fat stranding seen at the right abdomen. No evidence of free fluid or fluid collection. No evidence of free air. LYMPH NODES: Unremarkable. No enlarged lymph nodes. BLADDER: Mildly distended demonstrate mild wall thickening. REPRODUCTIVE: The prostate is mildly to moderately enlarged. BONES: No acute fracture. OTHER FINDINGS: None. IMPRESSION: No evidence of abscess formation in the abdomen and pelvis. Mildly dilated right kidney collecting system without evidence of obstructing stone. Correlate clinically for infectious process in the right kidney and collecting system. Interval resolving of the previously seen inflammatory changes and fluid collection at the right lower abdomen. Postsurgical changes and fat stranding seen at the midline anterior abdominal wall. No evidence of drainable fluid collection in the anterior abdominal wall.
--- NOTE | 2017-05-04 17:04 | CP.PCM.CON ---
History of Present Illness - History of Present Illness History of Present Illness: Surgery: Dr. Rocha CC: Incisional pain HPI: 76M s/p R hemicolectomy on 04/21 for anastomotic breakdown presents to ED w. incisional pain. Pt states that the pain began on thursday and has progressively worsened. The pain has been accompanied by purulent drainage. No F /C. No STEWART/blurred vision, No CP/palpitations, no SOB/cough, no hematuria/ dysuria. PMH: diabetes, hypertension, hyperlipidemia PSH: laparoscopic hand assisted ileocecectomy w/ primary anastomosis, R hemicolectomy w. primary anastomosis Meds: MAR reviewed NKDA SH: Denies ETOH, tobacco, or illicit drug use Fhx: non-contributory Review of Systems - Review of Systems All systems: reviewed and no additional remarkable complaints except (HPI) Past Patient History - Infectious Disease Hx of Infectious Diseases: None - Past Medical History & Family History Past Medical History?: Yes - Past Social History Smoking Status: Never Smoked - CARDIAC Hx Hypercholesterolemia: Yes Hx Hypertension: Yes - PULMONARY Hx Asthma: Yes Hx Pneumonia: Yes - NEUROLOGICAL Hx Neurological Disorder: No - HEENT Hx HEENT Problems: No - RENAL Hx Chronic Kidney Disease: No - ENDOCRINE/METABOLIC Hx Hypothyroidism: Yes (WAS PLACED ON MEDS PT DONT KNOW WHY) - HEMATOLOGICAL/ONCOLOGICAL Hx Human Immunodeficiency Virus (HIV): No - INTEGUMENTARY Hx Dermatological Problems: No - MUSCULOSKELETAL/RHEUMATOLOGICAL Hx Musculoskeletal Disorders: No Hx Falls: No - GASTROINTESTINAL Hx Gastrointestinal Disorders: Yes Hx Bowel Surgery: Yes - GENITOURINARY/GYNECOLOGICAL Hx Genitourinary Disorders: No - PSYCHIATRIC Hx Psychophysiologic Disorder: No Hx Substance Use: No - SURGICAL HISTORY Hx Surgeries: Yes Other/Comment: Bowel Resection- 09/2016. Colon resection 04/21/2017 - ANESTHESIA Hx Anesthesia: Yes Hx Anesthesia Reactions: No Hx Malignant Hyperthermia: No Meds Allergies/Adverse Reactions: Allergies Allergy/AdvReac Type Severity Reaction Status Date / Time No Known Allergies Allergy Verified 04/15/17 20:42 Physical Exam - Constitutional Appears: Non-toxic, No Acute Distress - Head Exam Head Exam: ATRAUMATIC, NORMOCEPHALIC - Eye Exam Eye Exam: EOMI. absent: Scleral icterus Pupil Exam: PERRL - ENT Exam ENT Exam: Mucous Membranes Moist, Normal External Ear Exam - Neck Exam Neck exam: Positive for: Full Rom - Respiratory Exam Respiratory Exam: NORMAL BREATHING PATTERN. absent: Accessory Muscle Use, Respiratory Distress - Cardiovascular Exam Cardiovascular Exam: RRR - GI/Abdominal Exam Additional comments: midline incision, +erythema, warm to touch, tender, purulent drainage expressed , no odor, +induration, no fluctuance - Extremities Exam Extremities exam: Negative for: calf tenderness, pedal edema - Neurological Exam Neurological exam: Alert, Oriented x3 - Psychiatric Exam Psychiatric exam: Normal Affect, Normal Mood - Skin Skin Exam: Dry, Normal Color, Warm Results - Vital Signs Recent Vital Signs: Last Vital Signs Temp 97.8 F 05/04/17 12:30 Pulse 79 05/04/17 12:30 Resp 18 05/04/17 12:30 BP 151/62 H 05/04/17 12:30 Pulse Ox 100 05/04/17 15:59 - Labs Result Diagrams: 05/04/17 13:25 05/04/17 13:55 Labs: Laboratory Results - last 24 hr 05/04/17 05/04/17 13:25 13:55 WBC 8.8 RBC 3.72 L Hgb 10.5 L Hct 30.5 L MCV 82.0 MCH 28.2 MCHC 34.5 RDW 13.8 Plt Count 307 MPV 10.5 Neut % (Auto) 80.5 H Lymph % (Auto) 12.2 L [place] % (Auto) 4.5 Eos % (Auto) 2.1 Baso % (Auto) 0.7 Neut # 7.1 H Lymph # 1.1 [place] # 0.4 Eos # 0.2 Baso # 0.1 Sodium 140 Potassium 4.7 Chloride 105 Carbon Dioxide 27 Anion Gap 12 BUN 28 H Creatinine 1.0 Est GFR ( Amer) > 60 Est GFR (Non-Af Amer) > 60 Random Glucose 112 H Calcium 10.0 Total Bilirubin 0.3 AST 43 ALT 63 Alkaline Phosphatase 72 Total Protein 7.9 Albumin 4.1 Globulin 3.8 Albumin/Globulin Ratio 1.1 - Imaging and Cardiology CT scan - abdomen Status: Image reviewed by me, Report reviewed by me Assessment & Plan - Assessment and Plan (Free Text) Assessment: 76M w. s/p R hemicolectomy presenting w. wound infection -1/2 of annie removed in ED -recommend augmentin for 1 week -Pt is to follow up at Dr. Rocha's office tomorrow at 4PM -Pt instructed to call office and make appointment -case d/w attending Mario PGY3
[2017-05-04 17:42] VITALS: BP 132/70; PULSE 76; RESP 16; TEMP 98.2; O2SAT 98
== END 2017-05-04 17:42 | disposition home or self-care (01) ==
LOC: H.ER 12:25
DX: T81.4XXA Infection following a procedure, initial encounter (principal); Z48.02 Encounter for removal of sutures
CPT/HCPCS: 74177; 80053; 85025; 87040; 87070; 87181; 99282; Q9967

== ENCOUNTER 2017-05-11 18:13 | Emergency (ER) | payer MEDICARE, OTHER ==
[2017-05-11 18:13] VITALS: BMI 30.7
[2017-05-11 18:29] VITALS: BP 144/56; PULSE 68; RESP 16; TEMP 98.8; O2SAT 99
--- NOTE | 2017-05-11 18:49 | ED PDOC ---
HPI: Wound Care - HPI Time Seen by Provider: 05/11/17 18:36 Chief Complaint (Nursing): Wound Check Chief Complaint (Provider): Wound check History Per: Patient Additional Complaint(s): Surgery: Dr. Rocha CC: Incisional pain HPI: 76M s/p R hemicolectomy on 04/21 for anastomotic breakdown presents to ED w. incisional pain, opening and drainage. Pt states that he had sutures removed last week and the incision opened up on Thursday. No F/C. No STEWART/blurred vision, No CP/palpitations, no SOB/cough, no hematuria/ dysuria. PMH: diabetes, hypertension, hyperlipidemia PSH: laparoscopic hand assisted ileocecectomy w/ primary anastomosis, R hemicolectomy w. primary anastomosis Meds: MAR reviewed NKDA SH: Denies ETOH, tobacco, or illicit drug use Fhx: non-contributory PMD: Bertrand Surgeon: Josefina Past Medical History Vital Signs: Last Vital Signs Temp 98.8 F 05/11/17 18:26 Pulse 68 05/11/17 18:26 Resp 16 05/11/17 18:26 BP 144/56 L 05/11/17 18:26 Pulse Ox 99 05/11/17 18:26 - Medical History PMH: Asthma, Colonic Polyps, Diabetes (type II), HTN, Hypercholesterolemia, Hyperlipidemia, Hypothyroidism (WAS PLACED ON MEDS PT DONT KNOW WHY), Pneumonia Denies: HIV, Chronic Kidney Disease - Surgical History Surgical History: Endoscopy - Family History Family History: States: Unknown Family Hx - Immunization History Hx Tetanus Toxoid Vaccination: No Hx Influenza Vaccination: No Hx Pneumococcal Vaccination: No - Home Medications Home Medications: Ambulatory Orders Medication Instructions Recorded Losartan/Hydrochlorothiazide 1 tab PO DAILY 11/27/16 [Losartan-Hctz 50-12.5 mg Tab] MetFORMIN [glucoPHAGE] 1,000 mg PO BID 11/27/16 Metoprolol Tartrate [Lopressor] 100 mg PO DAILY 11/27/16 hydrALAZINE [Apresoline] 25 mg PO Q8H 11/27/16 GlipiZIDE [Glucotrol] 10 mg PO BID 01/01/17 Fenofibrate [Tricor] 1 tab PO DAILY 03/18/17 Lactobacillus Acidophilus 1 each PO DAILY #30 capsule 04/27/17 [Acidophilus Lactobacilli] amLODIPine [Norvasc] 10 mg PO DAILY #30 04/27/17 Amoxicillin/Clavulanate [Augmentin 1 tab PO BID #14 tab 05/04/17 875 MG-125 MG] - Allergies Allergies/Adverse Reactions: Allergies Allergy/AdvReac Type Severity Reaction Status Date / Time No Known Allergies Allergy Verified 04/15/17 20:42 - Laboratory Results Result Diagrams: 05/11/17 19:28 - ECG O2 Sat by Pulse Oximetry: 99 Medical Decision Making Medical Decision Making: Coagulase neg staph and e.coli grew from wound culture on 05/04/17. Spoke to Pt's Surgeon, Dr. Rocha, who advised if Pt aferbile without white count, can be stable for discharge with wound care instructions. will follow up with Lexi in office. Disposition - Clinical Impression Clinical Impression: Encounter for wound re-check - Disposition Condition: STABLE Instructions: Acute Wound Care (ED) Forms: [facility] (Occitan) Print Language: SWEDISH
[2017-05-11 19:36] LABS: BASO % 0.4 % (0.0-2.0); EOS # 0.2 K/uL (0.0-0.7); EOS % 2.4 % (0.0-4.0); HEMOGLOBIN 11.1 g/dL (12.0-18.0); LYMPH # 1.9 K/uL (1.0-4.3); LYMPH % 25.2 % (20.0-40.0); MEAN CELL VOLUME 82.2 fl (80.0-94.0); MEAN CORPUSCULAR HEMOGLOBIN 27.8 pg (27.0-31.0); MEAN CORPUSCULAR HGB CONC 33.9 g/dL (33.0-37.0); MEAN PLATELET VOLUME 9.3 fl (7.2-11.7); MONO # 0.3 K/uL (0.0-0.8); MONO % 4.5 % (0.0-10.0); NEUT # 5.1 K/uL (1.8-7.0); NEUT % 67.5 % (50.0-75.0); RBC 3.98 Mil/uL (4.40-5.90); RED CELL DISTRIBUTION WIDTH 13.4 % (11.5-14.5); WHITE BLOOD COUNT 7.5 K/uL (4.8-10.8)
[2017-05-11 19:53] LABS: ALB/GLOB RATIO 1.2 (1.0-2.1); ALBUMIN 4.4 g/dL (3.5-5.0); CALCIUM 9.8 mg/dL (8.4-10.2)
--- NOTE | 2017-05-12 12:44 | US ---
PROCEDURE: Limited ultrasound of the abdominal wall HISTORY: abdomen wound dehis- r/o fluid collection COMPARISON: CT abdomen and pelvis from 05/04/2017 TECHNIQUE: Targeted high-resolution ultrasound of the periumbilical region was performed. FINDINGS: There is diffuse subcutaneous edema in the periumbilical region. There is an apparent 0.6 x 0.6 x 1.1 cm hypoechoic area in the right paramedian deep abdominal wall. IMPRESSION: Findings are most compatible with subcutaneous edema and an apparent 0.6 x 0.6 x 1.1 cm fluid collection in the deep right paramedian abdominal wall. The sterility of this collection cannot be determined by imaging. Clinical and laboratory correlation is advised.
== END 2017-05-11 20:00 | disposition home or self-care (01) ==
LOC: H.ER 18:13
DX: Z51.89 Encounter for other specified aftercare (principal)

== ENCOUNTER 2017-05-21 17:38 | Emergency (ER) | payer MEDICARE, OTHER ==
[2017-05-21 17:38] VITALS: BMI 30.7
[2017-05-21 17:46] VITALS: BP 146/64; PULSE 77; RESP 16; TEMP 97.8; O2SAT 99
--- NOTE | 2017-05-21 19:24 | ED PDOC ---
HPI: Wound Care - HPI Time Seen by Provider: 05/21/17 17:47 Chief Complaint (Nursing): Wound Check Chief Complaint (Provider): Bubble on Incision Line History Per: Patient History Of Present Illness: Milind Reilly, a 76 year old male, presents to the ED with a bubble on an old incision site x1 week. The patient states the bubble has continued to get bigger and so he decided to come to the ED to get evaluated. As per family, they tried calling Dr. Urbina but could not get in contact with him. Denies drainage, pain and fever. Patient is eating and drinking well. Exam Limitations: no limitations Onset/Duration Of Symptoms: Days (x7 days) Current Symptoms Are (Timing): Still Present Past Medical History Reviewed: Historical Data, Nursing Documentation, Vital Signs Vital Signs: Last Vital Signs Temp 97.8 F 05/21/17 17:43 Pulse 77 05/21/17 17:43 Resp 16 05/21/17 17:43 BP 146/64 05/21/17 17:43 Pulse Ox 99 05/21/17 17:43 - Medical History PMH: Asthma, Colonic Polyps, Diabetes (type II), HTN, Hypercholesterolemia, Hyperlipidemia, Hypothyroidism (WAS PLACED ON MEDS PT DONT KNOW WHY), Pneumonia Denies: HIV, Chronic Kidney Disease - Surgical History Surgical History: Endoscopy - Family History Family History: States: Unknown Family Hx - Immunization History Hx Tetanus Toxoid Vaccination: No Hx Influenza Vaccination: No Hx Pneumococcal Vaccination: No - Home Medications Home Medications: Ambulatory Orders Medication Instructions Recorded Losartan/Hydrochlorothiazide 1 tab PO DAILY 11/27/16 [Losartan-Hctz 50-12.5 mg Tab] MetFORMIN [glucoPHAGE] 1,000 mg PO BID 11/27/16 Metoprolol Tartrate [Lopressor] 100 mg PO DAILY 11/27/16 hydrALAZINE [Apresoline] 25 mg PO Q8H 11/27/16 GlipiZIDE [Glucotrol] 10 mg PO BID 01/01/17 Fenofibrate [Tricor] 1 tab PO DAILY 03/18/17 Lactobacillus Acidophilus 1 each PO DAILY #30 capsule 04/27/17 [Acidophilus Lactobacilli] amLODIPine [Norvasc] 10 mg PO DAILY #30 04/27/17 Amoxicillin/Clavulanate [Augmentin 1 tab PO BID #14 tab 05/04/17 875 MG-125 MG] - Allergies Allergies/Adverse Reactions: Allergies Allergy/AdvReac Type Severity Reaction Status Date / Time No Known Allergies Allergy Verified 04/15/17 20:42 Review of Systems Constitutional: Positive for: Other (Denies pain and drainage from incision site ). Negative for: Fever Musculoskeletal: Positive for: Other (Bubble on incision site on abdomen) Physical Exam - Reviewed Nursing Documentation Reviewed: Yes Vital Signs Reviewed: Yes - Physical Exam Appears: Positive for: Non-toxic, No Acute Distress Head Exam: Positive for: ATRAUMATIC, NORMAL INSPECTION, NORMOCEPHALIC Skin: Positive for: Normal Color, Warm, Dry. Negative for: Rash Eye Exam: Positive for: Normal appearance, EOMI, PERRL Gastrointestinal/Abdominal: Positive for: Normal Exam, Bowel Sounds, Soft, Other (Keloiding of the incision site with raised area; no erythema;non tender; no drainage.). Negative for: Tenderness Neurologic/Psych: Positive for: Alert, Oriented, Gait - ECG O2 Sat by Pulse Oximetry: 99 (RA) Pulse Ox Interpretation: Normal Medical Decision Making Medical Decision Makin Initial Impression: 76 year old male presenting for wound check Initial Plan: * Discussed with Dr. Rocha. States to follow-up with him thursday05/26/17. Scribe Attestation Documented by Meredith Muñoz acting as a scribe for Abbey Oakley PA-C. Scribe Attestation All medical record entries made by the Scribe were at my direction and personally dictated by me. I have reviewed the chart and agree that the record accurately reflects my personal performance of the history, physical exam, medical decision making, and the department course for this patient. I have also personally directed, reviewed, and agree with the discharge instructions and disposition. Disposition - Clinical Impression Clinical Impression: Encounter for postoperative wound check - Patient ED Disposition Is Patient to be Admitted: No - Disposition Referrals: Isael Rocha DO [[facility]] - Disposition: Routine/Home Disposition Time: 19:21 Condition: GOOD Additional Instructions: Please follow-up with Dr. Rocha on Thursday05/26/17 at 4pm. Instructions: Chronic Wound Care (ED)
== END 2017-05-21 20:01 | disposition home or self-care (01) ==
LOC: H.ER 17:38
DX: Z48.01 Encounter for change or removal of surgical wound dressing (principal); E03.9 Hypothyroidism, unspecified; E11.9 Type 2 diabetes mellitus without complications; E78.5 Hyperlipidemia, unspecified; I10 Essential (primary) hypertension; J45.909 Unspecified asthma, uncomplicated; Z79.84 Long term (current) use of oral hypoglycemic drugs